=== PATIENT | male | born 1945 | race Caucasian/White ===

== ENCOUNTER → 2017-10-20 14:00 | Outpatient (CLI) | payer MEDICARE, SELFPAY | PROVIDERS: PCP Family Medicine; Visit Provider Student in an Organized Health Care Education/Training Program | DX: Z47.89 Encounter for other orthopedic aftercare (principal); M75.122 Complete rotator cuff tear or rupture of left shoulder, not specified as traumatic; T84.89XD Other specified complication of internal orthopedic prosthetic devices, implants and grafts, subsequent encounter ==

== ENCOUNTER → 2017-10-22 02:18 | Outpatient (CLI) | payer MEDICARE, SELFPAY ==
[2017-10-22 11:55] LABS: Anion Gap 8.6 mmol/L (3-11); BUN 14 mg/dL (7-18); CO2 25.4 mmol/L (21.0-32.0); CREATININE 1.36 mg/dL (0.70-1.30); Calcium 9.1 mg/dL (8.5-10.1); Chloride 103 mmol/L (98-107); Estimated GFR 51.81 (mL/min/1.73m2); Glucose 110 mg/dL (70-100); Potassium 4.4 mmol/L (3.5-5.1); Sodium 137 mmol/L (136-145); Vitamin B12 585 pg/mL (193-986)
== END ==
PROVIDERS: PCP Family Medicine; Visit Provider Family Medicine
DX: I10 Essential (primary) hypertension (principal); R20.2 Paresthesia of skin
CPT/HCPCS: 36415; 80048; 82607

== ENCOUNTER 2017-11-14 11:00 | Outpatient (RCR) | payer MEDICARE, SELFPAY ==
--- NOTE | 2017-10-30 13:43 | R_ITS ---
Date: October 30, 2017 Referring: Tutu Rocha M.D. Diagnosis: rotator cuff tear w/revision on 09/16/17 Subjective: History of Present Illness: Chandrakant returns to the clinic today after undergoing a revision of his left rotator cuff repair. He had two proud anchors that did not securely fasten down the supraspinatus requiring further surgical intervention. Had this revision on September 16, and was released to resume P.T. this week. Had his wedge pillow / sling discontinued at 6 weeks, and was told by the Orthopedist to start pendulums and resisted isometrics. He is here today to resume P.T., with focus on AAROM. He follows up with his surgeon in another month. Given the nature of his surgery, intentions are to be non aggressive with ROM to allow for alternate healing, secondary to a history of loosening of two anchors. Pain Ratin/10 at time of I.E. 3/10 at its worst, in the past week. He is not taking any pain meds. He only uses Advil PRN or Tylenol. Pain location: C5 dermatomal distribution, if and when he has pain. Current Level of Function: Unable to perform any self ADLs with use of his left hand / arm. Unable to lift and/or carry. Limited with carrying objects weighing more than 10#. Difficulty donning and doffing pullover shirts. He admits that his sleep has improved since his last surgery. Comorbidities: See patient's EMR. Medications: As per EMR. QOL: Good Standardized Measures: 37% via the DASH. Objective: Posture: Obese male with a protracted scapula and forward head posture. Observation: Portals for incision are well closed without drainage or erythema. No notable swelling. Appears to be some atrophy through the supraspinatus fossa. Palpation: Mild tenderness over the posterior and anterior cuff on the left. ROM: Active left glenohumeral joint into flexion 45 and AA 95 and P 135 . He achieves 135 with pulleys and with fingerladder. External rotation 45 AA in scapular plane and internal rotation to S1. Abduction 25 A and 75 AA. Strength: 3+/5 flexion and abduction, 4/5 internal rotation and 3/5 external rotation. This compares to 4+/5 throughout on the right. Neuro: Sensation intact to light touch throughout bilateral UEs. Treatment: Re-eval followed by manual therapy (11775 x2) for shoulder mobilizations, lateral distraction, caudal glides at Grades 2 and 3 followed by AAROM into flexion, scapular plane abduction and external rotation. Went on to perform a therapeutic procedure (98063 x2) for instruction for resumption of HEP for pulleys flexion and scapular plane, fingerladder climb, pendulums, resisted isometrics and t-wand ROM for flexion and external rotation. Ended with cryotherapy x10 minutes to the shoulder at no charge. Treatment Time: Seen from 11:00 A.M. til 12:00 P.M. Add 59 modifier. Assessment: The patient is a 72 year old male referred for an evaluation and treatment planning following a left rotator cuff repair revision. He presents with clinical signs and symptoms consistent with this diagnosis as demonstrated by impaired joint mobility, motor function and muscle performance as well as ROM associated with soft tissue surgery. Impairments contribute to functional limitations as indicated above. He does require skilled intervention in order to return to full functional mobility, and he has a good prognosis. G-Codes: GCodes had been established following previous evaluation and remain appropriate. Patient's primary functional limitations is with carrying, moving and handling objects with a present status of GPG 8984 CJ and a projected goal of GPG 8985 CI based on the DASH. The patient's complexity is low based on: History: per EMR Examination: as indicated above Presentations: stable and uncomplicated Decision making: low complexity STG: Patient to demonstrate the following in 6 wks 1) improve active flexion to greater than 110 , active abduction to 90 , active internal rotation to L3 and AA external rotation to greater than or equal to 70 2) patient demonstrate independence with his HEP 3) increase strength by 1/2 grade or more through the left shoulder girdle. LTG: Patient to demonstrate the following in 12 wks 1) return to full, painfree functional mobility 2) decrease DASH to less than 20% Plan: Continue with P.T. as indicated above. Please sign, date and return to our clinic with your approval............................. Tutu Rocha M.D. MM/trey
--- NOTE | 2017-11-04 14:56 | PTTR_ITS ---
DATE: 11/04/17 SUBJECTIVE: Ray indicates that he feels he is doing fair with his HEP. ROM is slowly improving AA with the pulleys and finger ladder. OBJECTIVE: KX applied to all codes (yes) Manual therapy: (92481n7). Mobs of the left glenohumeral jt while in supine to include AAROM into flexion, scaption and ext rotation with arm by side. No complaints of discomfort reported with stretching today. The patient was able to achieve approximately 130 of flexion, 135 of scaption and approx. 35 to 40 of ext rotation with arm by side. Therapeutic procedures (68205f8). * x See flow sheet: did review patient's HEP to ensure proper positioning and good understanding of each exercise He performed 2 minutes of flexion and scaption stretching on [place] as well as 5 repetitions of finger ladder, isometric flexion, extension, abduction, int/ext rotation was also performed as well as stretching with a cane overhead while in supine and with ext rotation. Ended with cryotherapy x10 min. at no charge to the left shoulder while seated. Direct treatment time: 45 min. Total treatment time: 55 min. SG/gc
--- NOTE | 2017-11-07 10:00 | PTTR_ITS ---
DATE: 11/07/17 SUBJECTIVE: Indicated he notices mild aching in shoulder on rainy days since having last surgery. Had an achy night Friday because of this. [place] fine after last session and HEP is going well. OBJECTIVE: Manual therapy: (77098m9). Mobilization of left khushbu-hum jt consisting of AAROM throughout flexion, scaption and ER. Achieving 140 degrees flexion and scaption and 45 degrees ER with arm at side. Performed grade 1-2 caudal glides. Therapeutic procedures (68364d0) * x See flow sheet: Focus on AAROM, scap stabilization and light isometric strengthening. * x Provided skilled instruction in proper exercise performance * x Provided skilled manual cues to facilitate proper muscle recruitment and/ or movement pattern Ended session with cryotherapy x 10 minutes to left shoulder at no charge. Direct treatment time: 30 minutes Total treatment time: 40 minutes
--- NOTE | 2017-11-11 16:16 | PTTR_ITS ---
DATE: 11/11/17 SUBJECTIVE: Chandrakant continues to note improvements with his shoulder. Really feels as though this surgery was a success (at this time). OBJECTIVE: KX applied to all codes (yes) Manual therapy: (86655g8). AAROM of the left glenohumeral joint into external rotation achieving 75 with arm abducted at 90 , flexion 160 to 165 and abduction to 120 . Then performed AROM into flexion with punches in supine as well as progressing his ther-ex routine: Therapeutic procedures (17084p1). * x See flow sheet: side lying eccentric external rotation, serratus punch ups, serratus punch up circumduction and bent over rows. * He declined the need for ice post treatment. Will ice at home. Direct treatment time: 3:00 til 3:45 P.M. Plan: Continue as indicated above. MM/gc
--- NOTE | 2017-11-14 12:07 | PTTR_ITS ---
DATE: 11/14/17 SUBJECTIVE: Chandrakant states that he has been achy the past few days, but feels it is due to the cooler damper weather. OBJECTIVE: KX applied to all codes Manual therapy: (21491t6). mobilizations of left GH jt including posterior and inferior glides, distractions and ROM. STM t/o entire shld are Therapeutic procedures (68528c0). * x See flow sheet: light RTC strength and scap stabilizations * x Provided skilled instruction in proper exercise performance: proper scapular positioning Declined the need for cryo post session. Direct treatment time: 45 min Total treatment time: 45 min
== END 2017-11-14 23:59 | disposition home or self-care (01) ==
LOC: PT 11:00
PROVIDERS: PCP Family Medicine; Referring Provider Student in an Organized Health Care Education/Training Program; Visit Provider Student in an Organized Health Care Education/Training Program
DX: Z47.89 Encounter for other orthopedic aftercare (principal); M75.122 Complete rotator cuff tear or rupture of left shoulder, not specified as traumatic; M83.9 Adult osteomalacia, unspecified; T84.89XD Other specified complication of internal orthopedic prosthetic devices, implants and grafts, subsequent encounter
CPT/HCPCS: 97110; 97140

== ENCOUNTER 2017-12-01 12:49 | Outpatient (CLI) | payer MEDICARE, SELFPAY ==
--- NOTE | 2017-12-01 14:46 | DI.RAD_ITS ---
SYMPTOM/DIAGNOSIS: RT KNEE OA, PAIN RIGHT KNEE: Three views. Periarticular spurring is seen involving all three joint compartments. There is moderate narrowing of the medial femoral tibial joint space and mild narrowing of the patellofemoral joint. The bones are intact and normally mineralized. The soft tissues are unremarkable. IMPRESSION: Moderate osteoarthritis of the right knee.
== END 2017-12-01 13:09 ==
PROVIDERS: PCP Family Medicine; Visit Provider Student in an Organized Health Care Education/Training Program
DX: M25.561 Pain in right knee (principal); M17.11 Unilateral primary osteoarthritis, right knee
CPT/HCPCS: 20610; 73562; 99212; J1040

== ENCOUNTER → 2018-01-12 07:51 | Outpatient (BNVA) | payer MEDICARE, SELFPAY | PROVIDERS: PCP Family Medicine; Referring Provider Family Medicine; Visit Provider Student in an Organized Health Care Education/Training Program | DX: M75.122 Complete rotator cuff tear or rupture of left shoulder, not specified as traumatic (principal); Z47.89 Encounter for other orthopedic aftercare | CPT/HCPCS: 99211; 99213 ==

== ENCOUNTER 2018-03-30 09:41 | Outpatient (CLI) | payer MEDICARE, SELFPAY ==
[2018-03-30 13:05] LABS: Abs Immature Grans 0.01 k/cumm (0.0-0.09); Absolute Basophil Count 0.02 k/cumm (0.0-0.2); Absolute Eosinophil Count 0.24 k/cumm (0.0-0.7); Absolute Lymphocyte Count 1.35 k/cumm (1.2-3.4); Absolute Monocyte Count 0.94 k/cumm (0.11-0.7); Absolute Neutrophil Count 3.99 k/cumm (1.2-6.7); Basophils % 0.3; Eosinophils % 3.7; HGB 15.7 g/dL (13.5-17.5); Immature Grans % 0.2; Lymphocytes % 20.6; Mean Corp. HGB Concentration 34.1 g/dL (32.0-36.0); Mean Corpuscular Hemoglobin 31.8 pg (27.0-33.0); Mean Corpuscular Volume 93.3 fL (80-95); Mean Platelet Volume 10.3 fL (8.0-11.0); Monocytes % 14.4; Neutrophils % 60.8; Platelet Count 169 x1000/uL (130-400); RBC 4.93 m/cumm (4.50-6.00); RBC Distribution Width 12.6 % (11.8-14.1); White Blood Cell Count 6.55 k/cumm (4.4-10.8)
[2018-03-30 13:21] LABS: ALT 58 U/L (12-78); AST 44 U/L (15-37); Alkaline Phosphatase 69 U/L (46-116); Anion Gap 7.5 mmol/L (3-11); BUN 18 mg/dL (7-18); Bilirubin, Total 0.5 mg/dL (0.2-1.0); CO2 29.5 mmol/L (21.0-32.0); CREATININE 1.39 mg/dL (0.70-1.30); Calcium 9.7 mg/dL (8.5-10.1); Chloride 104 mmol/L (98-107); Estimated GFR 50.52 (mL/min/1.73m2); Glucose 104 mg/dL (70-100); Potassium 5.1 mmol/L (3.5-5.1); Sodium 141 mmol/L (136-145); Total Protein 7.2 g/dL (6.4-8.2)
[2018-03-30 15:00] LABS: ESR 12 MM/HR (1-20)
== END 2018-03-30 10:01 ==
PROVIDERS: PCP Family Medicine; Visit Provider Family Medicine
DX: R55 Syncope and collapse (principal)
CPT/HCPCS: 36415; 80053; 85652; 85025

== ENCOUNTER 2018-04-01 01:15 | Outpatient (CLI) | payer MEDICARE, SELFPAY ==
--- NOTE | 2018-04-01 10:15 | MERGE_ITS ---
*[facility]* *[facility]* [address] [place] [address] Date of study: 04/01/2018 Transthoracic Echocardiography M-mode, complete 2D, complete spectral Doppler, and color Doppler *STUDY CONCLUSIONS* Summary: 1. Left ventricle: The cavity size was normal. Wall thickness was normal. Systolic function was normal. The estimated ejection fraction was 60-65%. Wall motion was normal; there were no regional wall motion abnormalities. Some parameters suggest diastolic dysfunction. 2. Mitral valve: There was mild regurgitation. 3. Right ventricle: The cavity size was mildly dilated. Wall thickness was normal. Systolic function was normal. 4. Right atrium: The atrium was dilated. 5. Pulmonary arteries: Systolic pressure could not be accurately determined, but appeared to be increased, at least 30 to 35 mmHg. *PATIENT PRESENTATION* Height: 172.7cm ((68in) ) S/D Pressure: 128 / 85 Weight: 102.5kg ((225.5lb) ) BSA: 2.26m^2 Test start time: 10:20 AM. Test stop time: 11:20 AM. CONSULTING Jefferson Talbot [facility] NONPROFIT MANAGER RT Valerie ZavalaR)(CT), ZEESHAN ORDERING Jamie Irvin REFERRING Jamie Irvin *PROCEDURE DATA* Procedure information: The patient was identified by two identifiers. This study was interpreted by [facility]. Pertinent images and digital data are archived for permanent storage and are available for subsequent review. No prior study was available for comparison. Study status: Routine. Transthoracic echocardiography. M-mode, complete 2D, complete spectral Doppler, and color Doppler. A Transthoracic Echocardiogram was performed. Scanning was performed from the parasternal, apical, subcostal, and suprasternal notch acoustic windows. Images were obtained using an [id number] cardiac ultrasound machine. Image quality was adequate. Study completion: The patient tolerated the procedure well. There were no complications. History: PMH: Cough, near syncope. *CARDIAC ANATOMY* Left ventricle: The cavity size was normal. Wall thickness was normal. Systolic function was normal. The estimated ejection fraction was 60-65%. Wall motion was normal; there were no regional wall motion abnormalities. Some parameters suggest diastolic dysfunction. Aortic valve: Trileaflet; normal thickness leaflets. Mobility was not restricted. Doppler: Transvalvular velocity was within the normal range. There was no stenosis. There was no significant regurgitation. VTI ratio of LVOT to aortic valve: 0.85. Valve area (VTI): 2.4cm^2. Indexed valve area (VTI): 1.1cm^2/m^2. Peak velocity ratio of LVOT to aortic valve: 0.81. Valve area (Vmax): 2.3cm^2. Indexed valve area (Vmax): 1cm^2/m^2. Mean velocity ratio of LVOT to aortic valve: 0.77. Valve area (Vmean): 2.2cm^2. Indexed valve area (Vmean): 1cm^2/m^2. Mean gradient (S): 3.2mm Hg. Peak gradient (S): 5.4mm Hg. Aorta: Aortic root: The aortic root was normal in size. Ascending aorta: The ascending aorta was normal in size. Mitral valve: Structurally normal valve. Mobility was not restricted. Doppler: Transvalvular velocity was within the normal range. There was no evidence for stenosis. There was mild regurgitation. Valve area by pressure half-time: 2.1cm^2. Indexed valve area by pressure half-time: 0.9cm^2/m^2. Left atrium: The atrium was normal in size. Right ventricle: The cavity size was mildly dilated. Wall thickness was normal. Systolic function was normal. Pulmonic valve: Poorly visualized. Structurally normal valve. Doppler: Transvalvular velocity was within the normal range. There was no evidence for stenosis. There was mild regurgitation. Peak gradient (S): 3.6mm Hg. Tricuspid valve: Structurally normal valve. Doppler: Transvalvular velocity was within the normal range. There was no evidence for stenosis. There was trivial regurgitation. Peak gradient (D): 26.2mm Hg. Pulmonary artery: Systolic pressure could not be accurately determined, but appeared to be increased, at least 30 to 35 mmHg. Right atrium: The atrium was dilated. Pericardium: There was no pericardial effusion. Systemic veins: Inferior vena cava: Well visualized. The vessel was patent and normal in size. The respirophasic diameter changes were in the normal range (greater than or equal to 50%). Baseline ECG: Normal sinus rhythm. Measurements Left ventricle Value Reference LV ID, ED, PLAX 5.0 cm 3.5 - 6.0 LV ID, ES, PLAX 3.0 cm 2.1 - 4.0 LV PW thickness, ED, PLAX 1.0 cm LV end-diastolic volume, 1-p A2C 94 ml LV ejection fraction, 1-p A2C 67 % LV end-diastolic volume, 1-p A4C 94 ml LV ejection fraction, 1-p A4C 62 % LV e', lateral 0.071 m/sec LV E/e', lateral 6 LV e', medial 0.061 m/sec LV E/e', medial 8 LV e', average 0.066 m/sec LV E/e', average 7 Ventricular septum Value Reference IVS thickness, ED, PLAX 1.0 cm LVOT Value Reference LVOT ID, A-P 1.9 cm LVOT area 2.8 cm^2 LVOT peak velocity, S 0.94 m/sec LVOT mean velocity, S 0.66 m/sec LVOT VTI, S 19.6 cm LVOT peak gradient, S 3.5 mm Hg LVOT mean gradient, S 1.9 mm Hg Stroke volume (SV), LVOT DP 55 ml Stroke index (SV/bsa), LVOT DP 24 ml/m^2 Aortic valve Value Reference Aortic valve peak velocity, S 1.2 m/sec Aortic valve mean velocity, S 0.86 m/sec Aortic valve VTI, S 23.0 cm Aortic mean gradient, S 3.2 mm Hg Aortic peak gradient, S 5.4 mm Hg VTI ratio, LVOT/AV 0.85 Aortic valve area, VTI 2.4 cm^2 Velocity ratio, peak, LVOT/AV 0.81 Aortic valve area, peak velocity 2.3 cm^2 Velocity ratio, mean, LVOT/AV 0.77 Aortic valve area, mean velocity 2.2 cm^2 Aortic valve area/bsa, mean velocity 1 cm^2/m^2 Aorta Value Reference Aortic root ID, ED 3.2 cm Ascending aorta ID, A-P, S 3.3 cm RVOT Value Reference RVOT VTI, S 17.0 cm Left atrium Value Reference LA ID, A-P, ES 3.6 cm LA ID/bsa, A-P 1.6 cm/m^2 <=2.2 LA area, ES, A4C 18.3 cm^2 8.8 - 23.4 LA area, ES, A2C 16 cm^2 LA volume/bsa, ES, 1-p A4C 24 ml/m^2 LA volume, ES, 2-p 46 ml LA volume/bsa, ES, 2-p 20 ml/m^2 LA/aortic root ratio 1.13 Mitral valve Value Reference Mitral E-wave peak velocity 0.46 m/sec Mitral A-wave peak velocity 0.83 m/sec Mitral deceleration time (H) 359 ms 150 - 230 Mitral pressure half-time 104 ms Mitral E/A ratio, peak 0.55 Mitral valve area, PHT, DP 2.1 cm^2 Pulmonary veins Value Reference Pulmonary vein peak velocity, S 0.49 m/sec Pulmonary vein peak velocity, D 0.31 m/sec Pulmonary vein velocity ratio, peak, 1.6 S/D Pulmonary vein A-wave reversal peak 0.38 m/sec velocity Tricuspid valve Value Reference Tricuspid E-wave peak velocity 2.56 m/sec Tricuspid peak gradient, D 26.2 mm Hg Tricuspid regurg peak velocity 3.1 m/sec Tricuspid peak RV-RA gradient 39.6 mm Hg Right atrium Value Reference RA area, ES, A4C 19.3 cm^2 8.3 - 19.5 Pulmonic valve Value Reference Pulmonic peak gradient, S 3.6 mm Hg Legend: (L) and (H) ana paula values outside specified reference range. I have personally reviewed the images and have reviewed and edited the reported findings. Electronically signed by Tadeo Ghosh 04/01/2018 12:17
--- NOTE | 2018-04-01 11:41 | DI.US_ITS ---
SYMPTOMS/DIAGNOSIS: NEAR SYNCOPE WITH COUGH, R55, R05 CAROTID ULTRASOUND: There is minimal calcific plaque in both common carotid bulbs. The velocity measurements obtained are within the normal range. No significant stenosis is visible. The vertebral arteries show antegrade flow. IMPRESSION: Minimal calcific plaque. No evidence of significant internal carotid artery stenosis.
== END 2018-04-01 01:35 ==
PROVIDERS: PCP Family Medicine; Visit Provider Family Medicine
DX: I34.0 Nonrheumatic mitral (valve) insufficiency (principal); R55 Syncope and collapse; R05 Cough; I10 Essential (primary) hypertension
CPT/HCPCS: 93306; 93880

== ENCOUNTER → 2018-05-01 08:14 | Outpatient (BNVA) | payer MEDICARE, SELFPAY | PROVIDERS: PCP Family Medicine; Referring Provider Family Medicine; Visit Provider Surgery | DX: R10.13 Epigastric pain (principal); Z12.11 Encounter for screening for malignant neoplasm of colon; I10 Essential (primary) hypertension | CPT/HCPCS: 99213 ==

== ENCOUNTER 2018-05-25 07:58 | Day surgery (SDC) | payer MEDICARE, SELFPAY ==
--- NOTE | 2018-05-25 06:56 | W.PM.ENDDOP ---
Date of service: 05/25/18 Time of Service: : Endoscopy Report DATE OF PROCEDURE: 05/25/18 PRE-OP DIAGNOSIS: Colon Cancer Screening, Dyspepsia POST-OP DIAGNOSIS: other (Gastritis, reflux esophagitis, diverticulosis, polyps) PROCEDURE: 1. EGD with bx 2. Colonoscopy with polypectomy by forceps and hot snare SURGEON: Jazlyn Cortez ANESTHESIA: other (General/ ASA 2/ Ambar Skinner) ESTIMATED BLOOD LOSS: 5 PATHOLOGY: other (Antrum Bx, GE junction Bx, Ascending Polyp, descending polyp bx x3) COMPLICATIONS: None DISPOSITION: same day INDICATIONS: Mr. Gaona is a 72 year old amle with a history of diverticulitis, s/p resection who is here for a screening colonoscopy. He also has been having dyspepsia on Omeprazole 20 mg daily. Risks, benefits and complications have been reviewed. Complications include but are not limited to bleeding, pain, perforation, missed small lesion/polyp, sore throat, aspiration and adverse reaction to the medications. Questions were entertained and answered to their satisfaction and they wished to proceed. No guarantees were given or implied. PREP: Miralax/Dulcolax PROCEDURE START TIME: : PROCEDURE END TIME: 11:20 COLONOSCOPY RETRACTION TIME: 17 minutes FINDINGS: Moderate Gastritis Moderate esophageal inflammation Ascending polyp, descending polyp just past anastamosis and descending polyps PROCEDURE DESCRIPTION: After informed consent was obtained the patient was take to the procedure room and placed in a supine position. Monitors were applied and a time out was done. The patients name, date of , procedure type, allergies to medications and metal in their body was reviewed. A bite block was placed and the patient was sedated. Once sedated and comfortable the gastroscope was advanced through the oropharynx which was grossly normal into the esophagus. The proximal and mid-esophagus were normal. In the distal esophagus there was inflammation noted. The scope was advanced into the stomach and through the pylorus into the 3rd portion of the duodenum. The duodenum was noted to be normal. The scope was retracted back into the stomach and biopsies were done to rule out H. pylori. There were no ulcers. The scope was retroflexed. The cardia and fundus were noted to be normal. There was no hiatal hernia noted. The scope was retracted back into the esophagus and biopsies were done of the GE junction to rule out Naik's. The Z line was irregular. The GE junction was at 32 cm. While the patient was still sedated they were placed in a left decubitous position. A rectal exam was done. External exam was normal. Internal exam revealed a slightly relaxed sphincter tone and no palpable masses. The prostate was smooth. The scope was then introduced and retro-flexed. No internal hemorrhoids were identified. The scope was then advanced to the cecum without difficulty. The TI and appendiceal orifice were identified. The prep was adequate. The scope was then slowly retracted over 17 minutes back into the rectum. One polyp was removed with a hot snare in the ascending colon, 2 polyps were removed in the descending colon with forceps. One of the polyps was just distal to the anastamosis. There was diverticulosis noted throughout the colon including the cecum. The scope was removed and the patient was woken up and taken back to Same day surgery in stable condition. The patient tolerated the procedure well and there were no immediate complications. Follow up: Depends on final pathology.
--- NOTE | 2018-05-25 06:58 | W.PM.DSUDISC ---
Discharge Plan Disposition Patient Disposition: HOME Condition: Good Discharge Details Reason For Visit: Colon Cancer Screening/ Dyspepsia Attending Provider: Jazlyn Cortez Primary Care Provider: Jefferson Talbot Home Meds and New Rx's Prescriptions: New ranitidine HCl [Zantac] 150 mg tablet 150 mg PO QHS Qty: 30 RF: 0 Continued gabapentin 300 mg capsule 300 mg PO HS PRNRF: 0 ondansetron 4 mg tablet,disintegrating 4 mg PO QID PRN (Reason: nausea and vomiting) Qty: 7 RF: 0 multivitamin [Daily Multi-Vitamin] 1 EACH tablet 1 ea PO DAILY RF: 0 Fish Oil 500 MG capsule 500 mg PO DAILY RF: 0 omeprazole 20 MG tablet,delayed release (DR/EC) 20 mg PO DAILY RF: 0 lisinopril 10 MG tablet 10 mg PO DAILY Qty: 90 RF: 4 PROVENTIL HFA 18 GM HFA.AER.AD 2 puff Inhalation Q6H PRN Qty: 1 RF: 5 triamcinolone acetonide [Nasacort] 10.8 ML aerosol,spray 10.8 ml NS PRN PRNQty: 1 RF: 1 aspirin [Aspirin Low-Strength] 81 MG tablet,chewable 81 mg PO DAILY RF: 0 ibuprofen 800 MG tablet 800 mg PO Q8H PRN PRNQty: 60 RF: 2 acetaminophen [Non-Aspirin Extra Strength] 500 MG tablet 1,000 mg PO Q8H PRN PRNQty: 60 RF: 3 amitriptyline 10 mg tablet 10 mg PO HS PRNRF: 0 Discontinued polyethylene glycol 3350 17 gram powder in packet 255 g PO DAILY Qty: 15 RF: 0 bisacodyl [Dulcolax (bisacodyl)] 5 mg tablet,delayed release (DR/EC) 5 mg PO ONCE Qty: 4 RF: 0 Discharge Instructions Instructions: Colonoscopy (DC), Upper Endoscopy (DC), Colorectal Polyps (DC), Diverticulosis (DC), Gastroesophageal Reflux Disease (DC), Gastritis (GEN), Diet for Stomach Ulcers and Gastritis (GEN) Additional Instructions: Findings: Gastritis and reflux esophagitis Diverticulosis Polyps in the large bowel Follow up: 3-5 year for next colonoscopy Please call if you develop: fevers >101.5 Nausea or Vomiting Abdominal pain that is not transient DAY SURGERY UNIT POST COLONOSCOPY INSTRUCTIONS 1. Because there will be medication in your system for the next 24 hours, you may feel a little sleepy. Your coordination will be affected. Therefore: a. Do not drive or operate dangerous equipment for 24 hours. b. Do not drink alcohol beverages for 24 hours (not even beer). c. Plan to go home and rest for the day. 2. Generally there are no restrictions on your activity after a day or so has gone by, but you may feel a bit fatigued for a few days. 3 After you arrive home you may have a light meal and return to a normal diet as you can tolerate it without feeling sick to your stomach. 4. After surgery, you may feel pain or discomfort. This should be only transient, but if it persists please contact your doctor. 5. If there are any questions regarding the findings of your procedure, please feel free to contact your doctor. 6. If you are unable to contact your doctor with a problem, contact the hospital at [phone]. 7. Continue all your regular medications unless directed otherwise. I understand the above instructions and have no questions. Signature of Patient or Responsible Adult Escort Date/Time Name of Responsible Adult Escort Signature of Nurse Date/Time Stand Alone Forms: Cristopher Craft (EUNICEU) Activity:: Activity as Tolerated Diet:: High fiber diet Discharge Orders Discharge Orders: Discharge Order (Routine); Ordered 05/25/18 Ordered By: Jazlyn Cortez DS: Diagnosis Discharge Diagnosis (1) S/P colonoscopy: Status: Acute (2) H/O esophagogastroduodenoscopy: Status: Chronic (3) Colorectal polyp detected on colonoscopy: Status: Acute
[2018-05-25 08:13] VITALS: BP 136/90; PULSE 79; RESP 16; TEMP 35.4; O2SAT 94
[2018-05-25] MEDS: Lactated Ringers 1,000 ML 80 ML IV (08:37)
[2018-05-25] MEDS: Lidocaine 2% Viscous 15 ML CUP (10:40)
--- NOTE | 2018-05-25 10:47 | STOM_PTH ---
PATIENT: Javi Gaona LOC: [facility] U#:[id number] AGE/SX: 72/M ROOM: RE05/25/[address]: Jazlyn Cortez MD : [id number] BED: DIS: 05/25/2018 SPEC #: [id number] RECD: 05/25/18 12:51 STATUS: MICHELLE REQ #: [id number] MANNY: 05/25/18 10:[address]: Jazlyn Cortez DEPT: Surgical Specimen RECD BY: Afua Sandoval ENTERED: 05/25/18 12:53 SP TYPE: STOMACH OTHR DR: Jefferson Talbot MD Tissues: 1 - STOMACH BIOPSY 2 - ESOPHAGUS BIOPSY 3 - BIOPSY BOWEL 4 - BIOPSY BOWEL 5 - BIOPSY BOWEL Procedures: GROSS AND MICRO LEVEL 4 Comments: [id number]
[2018-05-25 12:00] VITALS: BP 130/82; PULSE 62; RESP 16; TEMP 35.6; O2SAT 94
== END 2018-05-25 12:10 | disposition home or self-care (01) ==
LOC: SUR 07:58
PROVIDERS: PCP Family Medicine; Visit Provider Surgery
PROC: (CPT 45385; principal; 2018-05-25 09:00)
DX: Z12.11 Encounter for screening for malignant neoplasm of colon (principal); D12.4 Benign neoplasm of descending colon; D12.2 Benign neoplasm of ascending colon; Z90.49 Acquired absence of other specified parts of digestive tract; Z87.19 Personal history of other diseases of the digestive system; R10.13 Epigastric pain; K21.0 Gastro-esophageal reflux disease with esophagitis; K29.50 Unspecified chronic gastritis without bleeding; I10 Essential (primary) hypertension
CPT/HCPCS: 45385; 45380; 43239; 88305

== ENCOUNTER → 2018-08-03 09:30 | Outpatient (BNVA) | payer MEDICARE, SELFPAY | PROVIDERS: PCP Family Medicine; Referring Provider Family Medicine; Visit Provider Student in an Organized Health Care Education/Training Program | DX: M17.11 Unilateral primary osteoarthritis, right knee (principal); Z98.890 Other specified postprocedural states; I10 Essential (primary) hypertension | CPT/HCPCS: 20610; 99213; 99214; J1040 ==

== ENCOUNTER 2018-08-28 01:44 | Outpatient (CLI) | payer MEDICARE, SELFPAY ==
--- NOTE | 2018-08-28 13:20 | DI.CT_ITS ---
SYMPTOMS/DIAGNOSIS: VERTIGO, HEADACHE, DIZZINESS AND GIDDINESS, R42 CT BRAIN: Noncontrast. No priors. The ventricles and sulci are consistent with the patient's age. 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 Mild small vessel ischemic disease is seen. No acute intracranial hemorrhage, infarct, midline shift or mass effect is identified. The visualized paranasal sinuses are clear. The mastoid air cells are well pneumatized. The calvarium is intact. IMPRESSION: No acute intracranial process.
== END 2018-08-28 02:04 ==
PROVIDERS: PCP Family Medicine; Visit Provider Emergency Medicine
DX: R42 Dizziness and giddiness (principal); R51 Headache; I67.82 Cerebral ischemia
CPT/HCPCS: 70450

== ENCOUNTER 2018-11-13 02:43 | Outpatient (CLI) | payer MEDICARE, SELFPAY ==
[2018-11-13 11:00] LABS: Anion Gap 10.5 mmol/L (3-11); BUN 16 mg/dL (7-18); CO2 26.5 mmol/L (21.0-32.0); CREATININE 1.37 mg/dL (0.70-1.30); Calcium 9.1 mg/dL (8.5-10.1); Chloride 104 mmol/L (98-107); Estimated GFR 51.22 (mL/min/1.73m2); Glucose 114 mg/dL (70-100); Potassium 4.5 mmol/L (3.5-5.1); Sodium 141 mmol/L (136-145)
== END 2018-11-13 03:03 ==
PROVIDERS: PCP Family Medicine; Visit Provider Family Medicine
DX: I10 Essential (primary) hypertension (principal)
CPT/HCPCS: 36415; 80048

== ENCOUNTER 2018-12-17 02:14 | Outpatient (CLI) | payer MEDICARE, SELFPAY ==
--- NOTE | 2018-12-17 09:35 | DI.CT_ITS ---
EXAM: CT SINUS WO CLINICAL HISTORY: RT NASAL POLYPS J33.9. TECHNIQUE: COMPARISON: CT HEAD WO from 08/28/2018 FINDINGS: Visualized portions of the brain and orbits are unremarkable. There is minimal mucoperiosteal thicke yumi the maxillary and ethmoid sinuses bilaterally. Nasal cavity unremarkable except for bilateral c oncha bullosa middle turbinates. The infundibulum the ostiomeatal complex appear patent bilaterally. IMPRESSION: Negative sinus CT except for minimal mucoperiosteal thickening as described above
== END 2018-12-17 02:34 ==
PROVIDERS: PCP Family Medicine; Visit Provider Otolaryngology
DX: J33.9 Nasal polyp, unspecified (principal); J34.89 Other specified disorders of nose and nasal sinuses
CPT/HCPCS: 70486

== ENCOUNTER 2018-12-28 11:40 | Outpatient (CLI) | payer MEDICARE, SELFPAY ==
--- NOTE | 2018-12-28 08:15 | DI.RAD_ITS ---
EXAM: XR KNEE LT 3V AP,LAT,ABELINO INDICATION: L knee pain. COMPARISON: XR knee RT 3V AP,lat,abelino from 12/01/2017 TECHNIQUE: 2D digital imaging was performed. FINDINGS: Three views were obtained. There is moderate narrowing of the medial tibiofemoral cartilaginous join t space. Mild medial femoral subluxation on the tibia noted. Mild marginal osteophyte formation not ed at multiple sites. IMPRESSION: DJD predominantly involving medial tibiofemoral joint.
== END 2018-12-28 12:00 ==
PROVIDERS: PCP Family Medicine; Referring Provider Family Medicine; Visit Provider Student in an Organized Health Care Education/Training Program
DX: M25.562 Pain in left knee (principal); M17.12 Unilateral primary osteoarthritis, left knee; M17.11 Unilateral primary osteoarthritis, right knee; I10 Essential (primary) hypertension
CPT/HCPCS: 20610; 73562; 99213; J1040

== ENCOUNTER 2019-04-05 13:29 | Outpatient (CLI) | payer MEDICARE, SELFPAY ==
--- NOTE | 2019-04-05 13:24 | DI.RAD_ITS ---
EXAM: XR STANDING ALIGNMENT CLINICAL HISTORY: OA right knee TECHNIQUE: The exam was performed accotding to the usual protocol. COMPARISON: No exams were available for comparison FINDINGS: AP views of the lower extremities were obtained for leg length/alignment. Note is made of marked jr rowing of medial tibiofemoral cartilaginous joint space on the right and mild narrowing of the medial tibiofemoral cartilaginous joint space on the left. Mild varus angulation of the right knee noted. Mild hypertrophic spurring at the joint margins of joints of the knees. IMPRESSION:
== END 2019-04-05 13:49 ==
PROVIDERS: PCP Family Medicine; Referring Provider Family Medicine; Visit Provider Student in an Organized Health Care Education/Training Program
DX: M17.11 Unilateral primary osteoarthritis, right knee (principal); M21.161 Varus deformity, not elsewhere classified, right knee; I10 Essential (primary) hypertension
CPT/HCPCS: 99213; 77073

== ENCOUNTER 2019-05-13 13:43 | Outpatient (CLI) | payer MEDICARE, SELFPAY ==
[2019-05-13 15:13] LABS: HCT 45.7 % (40.0-50.0); Mean Corpuscular Volume 91.4 fL (80-95); Mean Platelet Volume 9.7 fL (8.0-11.0); Platelet Count 169 x1000/uL (130-400); RBC Distribution Width 12.3 % (11.8-14.1); White Blood Cell Count 7.85 k/cumm (4.4-10.8)
[2019-05-13 15:42] LABS: Anion Gap 8.8 mmol/L (3-11); BUN 13 mg/dL (7-18); CO2 26.2 mmol/L (21.0-32.0); CREATININE 1.36 mg/dL (0.70-1.30); Calcium 8.9 mg/dL (8.5-10.1); Chloride 104 mmol/L (98-107); Estimated GFR 51.66 (mL/min/1.73m2); Glucose 87 mg/dL (74-106); Potassium 4.5 mmol/L (3.5-5.1); Sodium 139 mmol/L (136-145)
--- NOTE | 2019-05-14 12:30 | PDOC.CMPRO ---
- If Service Date Differs Date of service: 05/13/19 Time of Service: 12:30 Care Management Progress Note CM is asked to meet with patient by Johnny of day surgery. Javi reports he is having a total knee replacement on May 19, 2019. Javi lives with his in [facility] in a one story home. He states there are no stairs in the house but he does have three steps from the porch into the house. Javi drives and is independent at baseline. 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 Javi enjoys outdoor activities, such as hunting and fishing. He states he is ready for his knee surgery and has a walker, cane, shower seat, and raised toilet seat at home. His will drive him home upon discharge.
== END 2019-05-13 14:03 ==
PROVIDERS: PCP Family Medicine; Visit Provider Student in an Organized Health Care Education/Training Program
DX: M17.11 Unilateral primary osteoarthritis, right knee (principal); Z01.812 Encounter for preprocedural laboratory examination; Z01.818 Encounter for other preprocedural examination
CPT/HCPCS: 36415; 80048; 85027

== ENCOUNTER 2019-05-19 07:16 | Inpatient (IN) | payer MEDICARE, SELFPAY ==
[2019-05-19] VITALS (13 sets, daily range): BP systolic 85–141; BP diastolic 38–88; PULSE 64–74; RESP 12–21; TEMP 36.4–36.7; O2SAT 94–97
[2019-05-19] MEDS: Gabapentin 300 MG CAP PO ×2 (07:03→22:21)
[2019-05-19] MEDS: Acetaminophen 500 MG TAB 1000 MG PO ×3 (07:03→20:07)
[2019-05-19] MEDS: Celecoxib 200 MG CAP 400 MG PO (07:03)
[2019-05-19] MEDS: Lactated Ringers 1,000 ML 80 ML IV ×3 (07:20→23:10)
[2019-05-19] MEDS: Bupivacaine 0.25% Pres-Free 30 ML VIAL ×2 (07:39→09:20)
[2019-05-19] MEDS: ceFAZolin 2 GM/50 ML BAG IVPB (07:51)
[2019-05-19] MEDS: Ketorolac 30 MG/ML VIAL (09:20)
[2019-05-19] MEDS: Normal Saline 20 ML VIAL (09:20)
--- NOTE | 2019-05-19 13:20 | IN_ITS ---
Date of service: 05/19/19 Time of Service: 13:20 PT Notes Physical Therapy Inpatient Initial Evaluation Date: 05/19/2019 Referring Doctor: Tutu Rocha M.D. PT Orders: PT CONSULT: s/p ortho surgery Precautions: Fall. Standard. Activity as tolerated. Patient Profile/Admitting Diagnosis: Pt is a 73-year-old male with a history of primary osteoarthritis of the right knee presenting status post right total knee arthroplasty on post-operative day 0. PMHX: Medical History (Updated 12/28/18 @ 19:26 by Tutu Rocha MD) Calculus of gallbladder without cholecystitis without obstruction (Resolved 09/22/15) Carpal tunnel syndrome on both sides (Chronic 08/25/15) Diverticulitis of colon (Chronic) COLONOSCOPY-06/17/14; DR. DELUNA Essential hypertension (Chronic 07/13/13) GERD (gastroesophageal reflux disease) (Chronic) Hearing loss (Chronic) Hyperlipidemia (Chronic) Idiopathic peripheral neuropathy (Chronic 10/16/17) Left lumbar radiculitis (Resolved) Left lumbar radiculopathy (Chronic 03/07/16) Obesity (Chronic 07/23/12) Osteoarthritis (Chronic) Perforated diverticulitis (Resolved 05/06/14) Polymyalgia rheumatica (Chronic 10/13/15) Primary osteoarthritis of right knee (Chronic) Injecated: 12/01/2017, 08/03/2018, 12/28/2018 Umbilical hernia (Inactive) Surgical History (Updated 05/13/19 @ 13:20 by Rosibel Carmona) Complete tear of left rotator cuff (Resolved 05/28/17) S/P Repair Had to have 2 surgeries after an anchor was pulled H/O esophagogastroduodenoscopy (Resolved ~05/25/18) History of cholecystectomy (Inactive 10/08/15) History of exploratory laparotomy (Inactive 07/26/14) History of umbilical hernia repair (Inactive) repair of wound dehisence Reports 4 surgeries in 2014 Required skin graft and now has mesh in place S/P colonoscopy (Resolved ~05/25/18) Sigmoidoscopy 07/26/14; DR. DELUNA Status post knee surgery (Inactive) right knee arthroscopy Status post tonsillectomy and adenoidectomy (Acute) Status post trigger finger release (Acute) Social History/Home Situation: Pt lives in [facility] with his . No stairs in the home. Three stairs to enter with railing on the right. Equipment Owned/DME: Electric chair and adjustable bed. Subjective: Pt reports that he looks forward to getting out of bed this afternoon. He denies any headache, chest pain, and dizziness throughout Pt session. Objective: General Observation: Mepilex dressing over incision with GWENDOLYN bandage. Thr omboembolic pumps on bilateral LEs. Mental Status: alert and oriented x4 Pain: 0/10 ROM: Right Upper Extremity: Shoulder Flexion WFL. Shoulder abduction WFL. Elbow flexion WFL. Wrist flexion WFL. Opening and closing of hand WFL. Left Upper Extremity: Shoulder Flexion WFL. Shoulder abduction WFL. Elbow flexion WFL. Wrist flexion WFL. Opening and closing of hand WFL. Right Lower Extremity: Hip flexion WFL. Hip abduction WFL. Knee flexion 115 degrees. Knee extension -10 degrees. Ankle dorsiflexion WFL. Ankle plantarflexion WFL. Left Lower Extremity: Hip flexion WFL. Hip abduction WFL. Knee flexion WFL. Ankle dorsiflexion WFL. Ankle plantarflexion WFL. Strength: Right Upper Extremity: Shoulder flexors 3-/5. Shoulder abductors 3-/5. Elbow flexors 5/5. Elbow extensors 5/5. Underwear Finisher strong. Left Upper Extremity: Shoulder flexors 3-/5. Shoulder abductors 3-/5. Elbow flexors 5/5. Elbow extensors 5/5. Underwear Finisher strong. Right Lower Extremity: Hip flexors 4/5. Hip abductors 5/5. Knee flexors 3-/5. Knee extensors 3-/5. Ankle dorsiflexors 5/5. Ankle plantarflexors 5/5. Left Lower Extremity: Hip flexors 4+/5. Hip abductors 5/5. Knee flexors 5/5. Knee extensors 5/5. Ankle dorsiflexors 5/5. Ankle plantarflexors 5/5. Sensation: Intact as to pain and pressure on bilateral lower extremities. Bed Mobility/Transfers: Rolling SBA with HOB flat Supine to sit SBA with HOB flat Sit to supine SBA with HOB flat Sit to stand SBA Stand to sit SBA Bed to chair SBA Chair to bed SBA Gait: Pt was able to ambulate 260 feet, WBAT on the R LE, using a front-wheeled walker. CGA provided by PT student with wheelchair follow provided by PT. Step through gait pattern with asymmetric step length and height. No complaints of pain, lightheadedness, dizziness. Initially complained of stiffness in the right knee. Balance: Static Sitting: Normal Dynamic Sitting: Normal Static Standing: Fair Dynamic Standing: Fair Special Tests: Mobility Limitations Standardized Measure [facility] 6 clicks Basic Mobility Inpatient Short Form: Raw Score: 21 CMS Score: 29% deficit Informed Consent/Education: Patient instructed in purpose of PT consult and plan of care. Instructed the pt in strengthening interventions to complete every hour while in the hospital setting, including gluteus sets x10, quadriceps sets x10, and ankle pumps x10. Assessment: Pt is a 73-year-old male with a history of primary osteoarthritis of the right knee presenting status post right total knee arthroplasty on post- operative day zero. Pt presents with impairment level findings and functional limitations as listed above. -PAC raw score of 21 with 29% deficit. He demonstrated good tolerance to ambulation as he was able to walk a distance of 260 feet without complaints of increased pain. He was able to perform bed mobility and transfers with only stand by assist from physical therapy. Will assess his performance on stairs at a later treatment session. Pt will continue to benefit from skilled physical therapy at this time. Patient presents with clinical signs and symptoms consistent with current/admitting diagnoses that have resulted to mobility limitations, gait instability, and generalized weakness as demonstrated by the following impairment level findings: 1. Decreased strength to R LE hip and knee major muscle groups 2. Impaired standing balance 3. Impaired activity tolerance 4. Limitation of joint range of motion in right knee Impairments are contributing to the following functional limitations: 1. Dependent bed mobility skills 2. Increased dependence with transfers 3. Inability to safely ambulate without assistive device and physical assistance 4. Increase completion time for mobility ADL performance 5. Increased fall risk 6. Inability to negotiate steps alone safely Patient is assessed as a [id number] moderate complexity based on the following: History: Pt presents with impairment level findings and functional limitations as listed above. -PAC raw score of 21 with 29% deficit. Examination: Demonstrable impairment in strength, balance, and range of motion with underlying impairments and functional limitations as documented above Presentation: Evolving Decision Makin moderate complexity Goals: Goals X1 week 1. Supine-Sit independent 2. Sit-Supine independent 3. Sit-Stand independent 4. Stand-Sit independent 5. Bed-Chair independent 6. Chair-Bed independent 7. Independent gait on level surface with use of least restrictive device for at least 300 feet without report of pain nor dyspnea 8. Independent stair negotiation while holding onto unilateral rail on the right for at least 5 steps without report of pain nor dyspnea 9. Independent with home exercise program 10. Good static and dynamic standing balance/tolerance Plan of Care/Treatment Plan: 1-2x/day, 7 days/week x 1 week. Plan of care has been reviewed with the [employer] providing the service under Physical Therapy direction. Initiate Physical Therapy intervention for strengthening, bed mobility, transfers, gait, stairs, balance training, use of assistive device. DISCHARGE RECOMMENDATIONS: Discharge to home when medically cleared. PT will assess the pt?s ability to negotiate stairs at the following treatment session. Recommend a front-wheeled walker at this time for ambulation. TREATMENT CODE/TIME: 11380 x 25 minutes + 21925 x 10 minutes beginning at 13:20 P.M. Thank you very much for this referral. Emil Bynum, SHAE Doctor of Physical Therapy Student [facility] Supervision provided by Charmaine Brandt PT, DPT, CLT [facility] [place], [place]
[2019-05-19] MEDS: Pregabalin 25 MG CAP PO ×2 (14:40→20:06)
--- NOTE | 2019-05-19 15:04 | NUR.NOTE ---
Nursing Note: Pt admitted to room 210 from PACU. A&Ox3. VSS. Dandre patent. Is regaining sensation in LE's, able to wiggle toes. denies pain. oriented to room. Call mckeon in reach.
[2019-05-19] MEDS: ceFAZolin 1 GM/50 ML BAG IVPB (15:46)
--- NOTE | 2019-05-19 17:42 | W.PM.OP ---
Date of service: 05/19/19 Time of Service: 10:43 Operative Note Operative Note DATE OF PROCEDURE: 05/19/19 PRE-OP DIAGNOSIS: Right Knee Osteoarthritis POST-OP DIAGNOSIS: same PROCEDURE: Right Total Knee Replacement SURGEON: Tutu Rocha COST ACCOUNTING ANALYST: Rosibel Carmona ANESTHESIA: regional and spinal PATHOLOGY: none sent COMPLICATIONS: None Patient was transported to: PACU Patient's condition: stable Implants: 1. Depuy Attune Cementless Cruciate Retaining Femoral Component, Size 5 2. Depuy Attune Cementles Rotating Platform Tibial Component, Size 5 3. Depuy Attune 5x6mm CR/RP Poly 4. Depuy Attune Patellar Component, Size 38mm Indications: I have seen Chandrakant in clinic for symptoms of RIGHT knee arthritis, confirmed with radiographic findings. Chandrakant has exhausted nonoperative methods and was having significant limitations in daily function and desired better function and less pain. I discussed the technical details of a knee replacement. I explained the risks of the procedure to include, but not limited to, bleeding, infection, pain, stiffness, fracture, damage to nerves and vessels, damage to muscles and tendons, loosening, need for repeat procedure, blood clot and cardiopulmonary demise. Despite these risks, Chandrakant elected to proceed. Findings: There was significant signs of arthritis throughout the knee, this mostly in volved tihe medal compartment and the patellofemoral compartmet. Procedure Description: Chandrakant was greeted in the preoperative holding area where the correct side was identified and marked. The consent was reviewed with the patient and signed. The history and physical was updated. All questions were answered. Preoperative mediacations were administered: Acetaminophen 1000mg, Celebrex 400mg, and Gabapentin 300mg. An adductor canal block was then administered by the anesthesia team in the PACU. Chandrakant was taken back to the operating room. A spinal anesthestic was then administered. The patient was placed into the supine position on the operating room table. A nonsterile tourniquet was placed high onto the leg but only used for cementing. Posts were placed for positioning during the procedure. All bony prominences were well padded. Prophylactic antibiotics in the form of Cefazolin were administered. 1g of Tranxemic Acid was given intravenously within 30 minutes of incision. The right leg was then prepped with Chloraprep and draped in a standard fashion with impervious stockinette. A second prep with Chloraprep was performed prior to application of Iodine impregnated skin protection. A timeout to confirm correct identity, side and site, procedure, allergies, anesthesia, and medical concerns was performed. With the knee in some flexion, a midline incision was made overlying the knee. Full thickness skin flaps were raised once the extensor mechanism was encountered. These were raised medially and laterally. Any bleeding was controlled with electrocautery. Once the extensor mechanism was fully exposed, a medial parapatellar arthrotomy was performed in a flexed position. All bleeding from the arthrotomy and the geniculate arteries was coagulated. A medial subperiosteal peel was performed with electrocautery to the midcoronal plane. The fat pad was removed while keeping the patellar tendon protected. The anterior distal femur synovium was removed for later visualization. The ACL and PCL were resected and the anterior horn of the lateral meniscus was transected. The knee was then flexed with the patella everted. Large osteophytes from the tibia were removed. Large osteophytes from the femur were removed. Using a step drill, and based on preoperative templating, the femoral canal was entered. This was done with a step drill without any difficulty. The intramedullary distal femoral cut guide was inserted, set to a 5 degree valgus cut and 9mm cut thickness. The distal femoral cut guide was then held in position and pinned. With the soft tissues protected, the distal cut was performed. This was passed over a few times to ensure a planar cut. I then turned attention to the tibia. The extramedullary guide was placed onto the leg. The distal aspect was slid medial to adjust for position of center of ankle and stay in line with shaft of the tibia. Approximately 3-5 degrees of posterior slope was kept in the proximal cutting guide. The center of the guide was aligned with the PCL. The stylus was used to assess cut thickness. The medial side, most involved side, was set for a 4mm cut. This was then held in position and pinned into place with 2 additional pins and a cross pin for stability. The medial and lateral collateral ligaments were protected and the cut was performed. With this completed, it was assessed and noted to be of appropriate dimensions. The guide was removed. A spacer block was inserted and the knee was brought into extension. The 6mm spacer block provided full extension, without hyperextension and with stability of both the medial and lateral collateral ligaments was assessed. The pins from the femur and the tibia were then removed. The distal femur was then sized. The anterior stylus was placed onto the lateral ridge of the anterior femur. This indicated a size 6 femur. The external rotation of the guide was adjusted to 3 degrees to match the epicondylar axis, perpendicular to [place]?s line. The 4-in-1 cutting guide was the placed. The posterior medial femur cut was evaluated and appeared of good thickness. The spacer block was inserted underneath the cutting guide and stability was confirmed in 90 degrees of flexion. An iam wing was used to confirm appropriate position of the anterior cut to avoid notching. This cutting guide was ensured to be flush on the cut surface and then pinned into place with headed pins. While protecting the soft tissues, quad tendon, and collateral ligaments, the anterior and posterior cuts were performed with a saw. The central two pins were removed and the posterior and anterior chamfers were cut next. The notch-cutting guide was placed. This was pinned to lateralize the femoral component as much as possible while keeping it flush on the cut surface. This was then pinned into position. A reciprocating saw was used to make the notch cut. A rasp smoothed the cut surfaces. A trial cruciate retaining femoral component was then inserted, impacted down to the cut surfaces, and the lug holes were drilled. A provisional trial tibial component was placed and the knee was brought through range of motion. There was noted to be excellent extension and flexion. There was no significant instability. The patella was tracking without thumbs. The tibial cut surface was fully exposed. The medial and lateral menisci were removed. The tibia was then sized as a 5. The tibia had been previously marked during trialing to correspond to the center of the tibial component to help with rotation. The trial was aligned to this ana paula, approximately rotated to the medial 1/3rd of the tibial tubercle. The trial was pinned into place. The tibia was prepared with a reamer and a keel punch. The knee was then brought into extension and the patella was measured as 25mm. Using the patellar clamp and cut guide, this was resected to a flat surface with at least 13mm of thickness remaining. The size 38 patella fit the best. This was oriented and then clamped into position. The lugs were drilled. The trial components were removed. The final components, except for the polyethylene were opened on the back table. The periosteal and capsular tissues, especially posteriorly, around the knee were then systematically injected with a periarticular cocktail consisting of 50cc 0.25% Marcaine, 30mg Ketorolac, 20cc of Exparal and 50cc of injectable saline. The knee was thoroughly irrigated with a pulse lavage and dried. On the back table, with the implants opened, the cement was mixed. 1 batch of cement were prepared with vacuum assistance. Cement was manually impacted into the cut surface of the patella and the patellar button was clamped into position and held. During this process attention was turned to the gutters of the knee and for all interfaces for any excess cement. While the cement was hardening, the knee was irrigated with Irrisept chlorhexadine solution. This was allowed to sit in the knee for 3 minutes. During the cementing process, the cementless components were then impacted using light mallet blows. The final rotating platform poly was inserted. They seated fully onto the bone without difficulty. After the cement had finally cured, approximately 15min, the clamp was removed from the patella and the knee was taken through range of motion. The capsule was then reapproximated with a No. 1 Vicryl at multiple locations. The capsule was finally closed with a No. 2 Stratafix, barbed suture. The tourniquet was then released and the arthrotomy appeared watertight without significant bleeding. The second dosing of 1g TXA was started. Deep tissues were then reapproximated with 0 Vicryl and 2-0 Vicryl. The skin was closed with a running 3-0 Monocryl in a subcuticular fashion. This was reinforced with skin glue. A Mepilex silver dressing was applied along with a [id number] GWENDOLYN wrap. A CryoCuff was applied. UMESH was transferred to the hospital bed without difficulty an suffering no apparent complication. NAME has a good prognosis. Physical therapy will start today and without restrictions, weight-bearing as tolerated. Aspirin 81mg BID will be used for DVT prophylaxis.
[2019-05-19] MEDS: Celecoxib 200 MG CAP PO (20:05)
[2019-05-19] MEDS: Aspirin E.C. 81 MG TABEC PO (20:06)
[2019-05-19] MEDS: Lisinopril 10 MG TAB PO (20:43)
[2019-05-20 00:27] VITALS: BP 97/60; PULSE 71; RESP 18; TEMP 36.7; O2SAT 96
[2019-05-20] MEDS: ceFAZolin 1 GM/50 ML BAG IVPB ×2 (00:39→07:30)
[2019-05-20 03:37] VITALS: BP 114/72; PULSE 69; RESP 16; TEMP 36.2; O2SAT 97
--- NOTE | 2019-05-20 07:09 | DSE_ITS ---
Date of service: 05/20/19 Time of Service: 08:05 DS: Diagnosis Discharge Diagnosis (1) Primary osteoarthritis of right knee: Status: Chronic Discharge Plan Disposition Patient Disposition: HOME Condition: Good Discharge Details Reason For Visit: RIGHT KNEE DJD Admit Date/Time: 05/19/19 07:16 Admit Provider: Tutu Rocha Attending Provider: Tutu Rocha Primary Care Provider: [facility] Hospital Course Hospital Course: Patient was admitted to the medical/surgical floor following the procedure. It was tolerated well without any notable medical, surgical, or anesthetic complications. Mobilization began postoperatively. The encarnacion catheter was removed and voiding spontaneously. Vitals were stable. Physical therapy worked with the patient and was cleared for discharge home. No acute medical issues. Home Meds and New Rx's Prescriptions: New celecoxib 200 mg capsule 200 mg PO BID PRN (Reason: pain) Qty: 60 RF: 1 aspirin 81 mg tablet,delayed release (DR/EC) 81 mg PO BID Qty: 60 RF: 0 acetaminophen 500 mg tablet 1,000 mg PO Q8H PRN (Reason: pain) Qty: 90 RF: 3 oxycodone 5 mg tablet 5 mg PO Q4H Qty: 12 RF: 0 Continued [facility] 10 billion cell -200 mg tablet,chewable 1 tab PO DAILY PRNRF: 0 lisinopril 10 mg tablet 10 mg PO DAILY Qty: 90 RF: 4 multivitamin [Daily Multi-Vitamin] 1 EACH tablet 1 ea PO DAILY RF: 0 Fish Oil 500 MG capsule 500 mg PO DAILY RF: 0 omeprazole 20 MG tablet,delayed release (DR/EC) 20 mg PO DAILY RF: 0 PROVENTIL HFA 18 GM HFA.AER.AD 2 puff Inhalation Q6H PRN Qty: 1 RF: 5 pregabalin [Lyrica] 25 mg capsule 25 mg PO TID Qty: 90 RF: 3 triamcinolone acetonide [Nasacort] 10.8 ML aerosol,spray 10.8 ml NS PRN PRNQty: 1 RF: 1 gabapentin 300 mg Capsule 300 mg PO QHS RF: 0 Discontinued ibuprofen 800 MG tablet 800 mg PO Q8H PRN PRNQty: 60 RF: 2 acetaminophen [Non-Aspirin Extra Strength] 500 MG tablet 1,000 mg PO Q8H PRN PRNQty: 60 RF: 3 Discharge Instructions Additional Instructions: Dr. Rocha?s Total Knee Discharge Instructions Activity: The most important activity is to walk. You should try to take short walks a few times a day. It is important that when resting you work on keeping the knee straight. Avoid putting a pillow behind the knee as this will encourage flexion. Work on range of motion exercises as provided by Physical Therapy. - Start outpatient physical therapy within 2 weeks. - You should wear the WILL hose on both legs for 2 weeks. Dressing: Keep the surgical dressing in place for at least one week. After the first week it may be removed and replace with light gauze and tape or nothing. It may get wet after 3 days but avoid soaking the dressing. If it gets wet, just lightly pat dry. Medications: - You should take Tylenol and anti-inflammatory Celebrex as your primary pain control medications - You have been prescribed a stronger pain medication Oxycodone for breakthrough pain, take as needed as prescribed. - You will continue your stomach acid reduction agent Omeprazole to help reduce stomach acid and reflux. - You will be taking Aspirin 81mg twice a day for DVT prevention unless instructed otherwise. - If you have constipation you should take Colace or Miralax (both [id number]). It takes most people 3-4 days to have a bowel movement. Follow-up: 2 weeks Referrals: Tutu Rocha MD [ [facility]] - [facility] [Provider Group] (s/p R TKA. PT to start around 2 weeks post-op) Activity:: Activity as Tolerated Equipment/Supplies:: Walker Diet:: As Tolerated Discharge Orders Discharge Orders: Discharge Order (Routine); Ordered 05/20/19 Ordered By: Tutu Rocha DS: Summary Status at Discharge Functional status at discharge: uses cane/walker Overall status at discharge: patient is progressing back to baseline Mental Status: mental status grossly normal Speech and Movement: speech and movement normal Mood: congruent mood Affect: normal affect Exam Psych Mental Status: mental status grossly normal Speech and Movement: speech and movement normal Mood: congruent mood Affect: normal affect DS: Data Vitals/I&O Vitals and I&O: Vital Signs Temperature 36.2 C L 05/20/19 03:37 Temperature Source Tympanic 05/20/19 03:37 Pulse 69 05/20/19 03:37 Pulse Rhythm Regular 05/20/19 03:34 Respiratory Rate 16 05/20/19 03:37 Respiratory Effort 05/20/19 03:34 Respiratory Depth Normal 05/20/19 03:34 Respiratory Pattern Normal 05/20/19 03:34 Blood Pressure 114/72 05/20/19 03:37 Pulse Oximetry 97 05/20/19 03:37 Respiratory End-tidal CO2 36 05/19/19 10:27 Oxygen Delivery Method Room Air 05/20/19 03:37 Oxygen Flow Rate 0 05/20/19 03:37 Pain Level 0 05/20/19 03:37 Intake & Output 05/19/19 05/19/19 05/20/19 11:59 23:59 11:59 Intake Total 998 / 2528 1530 / 2528 Output Total 200 / 500 300 / 500 330 / 330 Balance 79 / 8 1230 / 2027 -330 / -330 Weight 102.4 kg Intake: IV 958 / 2007 1050 / 2007 Oral 40 / 520 480 / 520 Output: Urine 50 / 350 300 / 350 330 / 330 Estimated Blood Loss 150 / 150 Other: Urine Color Yellow Dark Patricia Light Patricia Urine Appearance Clear Clear Clear Emesis Description None PFSH Medical History Calculus of gallbladder without cholecystitis without obstruction (Resolved 09/22/15) Carpal tunnel syndrome on both sides (Chronic 08/25/15) Diverticulitis of colon (Chronic) COLONOSCOPY-06/17/14; DR. DELUNA Essential hypertension (Chronic 07/13/13) GERD (gastroesophageal reflux disease) (Chronic) Hearing loss (Chronic) Hyperlipidemia (Chronic) Idiopathic peripheral neuropathy (Chronic 10/16/17) Left lumbar radiculitis (Resolved) Left lumbar radiculopathy (Chronic 03/07/16) Obesity (Chronic 07/23/12) Osteoarthritis (Chronic) Perforated diverticulitis (Resolved 05/06/14) Polymyalgia rheumatica (Chronic 10/13/15) Primary osteoarthritis of right knee (Chronic) Injecated: 12/01/2017, 08/03/2018, 12/28/2018 Umbilical hernia (Inactive) Surgical History Complete tear of left rotator cuff (Resolved 05/28/17) S/P Repair Had to have 2 surgeries after an anchor was pulled H/O esophagogastroduodenoscopy (Resolved ~05/25/18) History of cholecystectomy (Inactive 10/08/15) History of exploratory laparotomy (Inactive 07/26/14) History of umbilical hernia repair (Inactive) repair of wound dehisence Reports 4 surgeries in 2015 Required skin graft and now has mesh in place S/P colonoscopy (Resolved ~05/25/18) Sigmoidoscopy 07/26/14; DR. DELUNA Status post knee surgery (Inactive) right knee arthroscopy Status post tonsillectomy and adenoidectomy (Acute) Status post trigger finger release (Acute) Family History Mother , 82 Diabetes Father , 93 Heart disease Cancer Sister No problems noted. Brother Diabetes Son No problems noted. Daughter No problems noted. Daughter No problems noted. Daughter No problems noted. Social History Smoking/Tobacco Use Status: Never Alcohol Intake: never Drug use: Never Substance use type: does not use Caregiver/Support person: Yes Household members: spouse Housing: house Communication Needs: Hard of Hearing Do you need help understanding health information?: Rarely Pets and animals: Yes Pets and animals: cat(s) Sexually active: No Do you think of yourself as: straight/heterosexual Current gender identity: male What is your relationship status?: How often do you talk on the phone with friends or family?: three or more times per week How often do you get together with friends or relatives?: once per week How often do you attend anabaptist or yarsani services?: decline to answer Do you belong to any clubs or organized social groups?: no Panel score (0-1 are the most socially isolated patients): 2 What type of physical activity do you participate in: walking Duration: 45-60 minutes/day Frequency: daily Marie/Muslim: None Special marie needs: No Seatbelt use: always Helmet use: No Drive intox or ride w/intox 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
[2019-05-20 07:26] VITALS: BP 123/77; PULSE 66; RESP 17; TEMP 36.9; O2SAT 97
[2019-05-20] MEDS: Celecoxib 200 MG CAP PO (07:30)
[2019-05-20] MEDS: Aspirin E.C. 81 MG TABEC PO (07:30)
[2019-05-20] MEDS: Acetaminophen 500 MG TAB 1000 MG PO (07:30)
[2019-05-20] MEDS: Pregabalin 25 MG CAP PO (07:30)
[2019-05-20] MEDS: Multivitamin TAB 1 TAB PO (07:32)
[2019-05-20] MEDS: Omeprazole 20 MG CAPCR PO (07:32)
--- NOTE | 2019-05-20 11:56 | PT.INTREAT ---
Date of service: 05/20/19 Time of Service: 09:00 PT Notes Visit Reasons: RIGHT KNEE DJD 05/20/2019 SUBJECTIVE: Ray stating he is having minimal discomfort. Some achiness with weight bearing but this is well managed. OBJECTIVE: Pt supine in bed. Agreeable to PT treatment. TRANSFERS Supine to sit: S Sit to stand: S Stand to sit: S GAIT Device: FWW Weight bearing: AT R Assist: S Distance: 10'+120'x2 Deviation: Step through STAIRS: 3-4, 2-6 steps, 2 rails, step to pattern, S only THEREX: Pt able to perform active SLR without difficulty. Pt performs light ROM activities and light strengthening. Review HEP. ASSESSMENT: Pt tolerates PT well today without difficulty with stair management or straight plane ambulation with FWW. He has a good understanding of his HEP. PLAN: Pt to be discharged home. See discharge summary for details. Treatment time: 25' [id number], [id number] Jovita Rodriguez, ENOC
--- NOTE | 2019-05-21 16:56 | PT.INDS ---
Date of service: 05/21/19 PT Notes Visit Reasons: RIGHT KNEE DJD Physical Therapy Inpatient Discharge Summary Date: 05/21/2019 Dates of Service: 05/19/2019 through 05/20/2019 This is a clinical summary of care provided on the duration of dates listed above. No charge was made in the completion of this documentation. Patient Profile/Admitting Diagnosis: Pt is 58-year-old woman with history of left hip osteoarthritis presenting status post left total hip arthroplasty on post-operative day zero. Objective: General Observation: Mepilex dressing over incision. Thromboembolic pumps on bilateral LEs. Mental Status: alert and oriented x4 Pain: 0/10 ROM: Right Upper Extremity: Shoulder Flexion WFL. Shoulder abduction WFL. Elbow flexion WFL. Wrist flexion WFL. Opening and closing of hand WFL. Left Upper Extremity: Shoulder Flexion WFL. Shoulder abduction WFL. Elbow flexion WFL. Wrist flexion WFL. Opening and closing of hand WFL. Right Lower Extremity: Hip flexion WFL. Hip abduction WFL. Knee flexion WFL. Ankle dorsiflexion WFL. Ankle plantarflexion WFL. Left Lower Extremity: Hip flexion 115 degrees. Hip abduction WFL. Knee flexion WFL. Ankle dorsiflexion WFL. Ankle plantarflexion WFL. Strength: Right Upper Extremity: Shoulder flexors 5/5. Shoulder abductors 5/5. Elbow flexors 4+/5. Elbow extensors 4+/5. Employee Communications Intern strong. Left Upper Extremity: Shoulder flexors 5/5. Shoulder abductors 5/5. Elbow flexors 4+/5. Elbow extensors 5/5. Employee Communications Intern strong. Right Lower Extremity: Hip flexors 4+/5. Hip abductors 5/5. Knee flexors 4+/5. Knee extensors 5/5. Ankle dorsiflexors 5/5. Ankle plantarflexors 5/5. Left Lower Extremity: Hip flexors 3-/5. Hip abductors 4/5. Knee flexors 4+/5. Knee extensors 5/5. Ankle dorsiflexors 5/5. Ankle plantarflexors 5/5. Sensation: Intact as to pain and pressure on bilateral lower extremities. Bed Mobility/Transfers: Rolling SBA Supine to sit SBA Sit to supine SBA Sit to stand Supervision Stand to sit Supervision Bed to chair Supervision Chair to bed Supervision Gait: Pt was able to ambulate 250 feet, WBAT on the L LE, using a front-wheeled walker. Supervision provided by BUSINESS PROCESS ASSOCIATE. Step through gait pattern. Stairs: Pt was able to ascend and descend the 4-inch steps x3 and 6-inch steps x2 using bilateral upper extremity support. Supervision provided by BUSINESS PROCESS ASSOCIATE. Balance: Static Sitting: Normal Dynamic Sitting: Normal Static Standing: Fair Dynamic Standing: Fair Assessment: Pt is 58-year-old woman with history of left hip osteoarthritis presenting status post left total hip arthroplasty on post-operative day zero. Pt presented with impairment level findings and functional limitations as listed below. She demonstrated the ability to perform bed mobility and transfers with only a stand by assist on initial evaluation. Pt demonstrates improvements in mobility with ambulation as she was able to walk a much greater distance of 250 feet, as compared to 70 feet on initial evaluation. She was able to negotiate stairs without difficulty or complaints of increased pain. Patient continues to present with clinical signs and symptoms consistent with current/admitting diagnoses that have resulted to mobility limitations, gait instability, and generalized weakness as demonstrated by the following impairment level findings: 1. Decreased strength to L hip major muscle groups 2. Impaired standing balance 3. Impaired activity tolerance 4. Limitation of joint range of motion in left hip Impairments continue to contribute to the following functional limitations: 1. Dependent bed mobility skills 2. Increased dependence with transfers 3. Inability to safely ambulate without assistive device and physical assistance 4. Increase completion time for mobility ADL performance 5. Increased fall risk 6. Inability to negotiate steps alone safely Patient was assessed as a 82722 moderate complexity based on the following: History: Pt presented with impairment level findings and functional limitations as listed above. Examination: Demonstrable impairment in strength, balance, and range of motion with underlying impairments and functional limitations as documented above Presentation: Evolving Decision Makin moderate complexity Goals: Goals X1 week 1. Supine-Sit independent -NOT MET 2. Sit-Supine independent -NOT MET 3. Sit-Stand independent -NOT MET 4. Stand-Sit independent -NOT MET 5. Bed-Chair independent -NOT MET 6. Chair-Bed independent -NOT MET 7. Independent gait on level surface with use of least restrictive device for at least 300 feet without report of pain nor dyspnea -NOT MET 8. Independent stair negotiation while holding onto bilateral rails for at least 4 steps without report of pain nor dyspnea -MET 9. Independent with home exercise program -NOT MET 10. Good static and dynamic standing balance/tolerance -NOT MET DISCHARGE RECOMMENDATIONS: Discharge to home when medically cleared. Recommend a front-wheeled walker at this time for ambulation. Thank you very much for this referral. Emil Bynum, SPT Doctor of Physical Therapy Student [facility] Supervision provided by Charmaine Brandt PT, DPT, CLT [facility] [place], [place]
--- NOTE | 2019-05-21 17:04 | INDS_ITS ---
Date of service: 05/21/19 PT Notes Visit Reasons: RIGHT KNEE DJD Physical Therapy Inpatient Discharge Summary Date: 05/21/2019 Dates of Service: 05/19/2019 through 05/20/2019 This is a clinical summary of care provided on the duration of dates listed above. No charge was made in the completion of this documentation. Patient Profile/Admitting Diagnosis: Pt is a 73-year-old male with a history of primary osteoarthritis of the right knee presenting status post right total knee arthroplasty on post-operative day zero. Objective: General Observation: Mepilex dressing over incision with GWENDOLYN bandage. Thromboembolic pumps on bilateral LEs. Mental Status: alert and oriented x4 Pain: 0/10 ROM: Right Upper Extremity: Shoulder Flexion WFL. Shoulder abduction WFL. Elbow flexion WFL. Wrist flexion WFL. Opening and closing of hand WFL. Left Upper Extremity: Shoulder Flexion WFL. Shoulder abduction WFL. Elbow flexion WFL. Wrist flexion WFL. Opening and closing of hand WFL. Right Lower Extremity: Hip flexion WFL. Hip abduction WFL. Knee flexion WFL. Ankle dorsiflexion WFL. Ankle plantarflexion WFL. Left Lower Extremity: Hip flexion WFL. Hip abduction WFL. Knee flexion WFL. Ankle dorsiflexion WFL. Ankle plantarflexion WFL. Strength: Right Upper Extremity: Shoulder flexors 3-/5. Shoulder abductors 3-/5. Elbow flexors 5/5. Elbow extensors 5/5. Tree And Shrub Technician strong. Left Upper Extremity: Shoulder flexors 3-/5. Shoulder abductors 3-/5. Elbow flexors 5/5. Elbow extensors 5/5. Tree And Shrub Technician strong. Right Lower Extremity: Hip flexors 4/5. Hip abductors 5/5. Knee flexors 3-/5. Knee extensors 3-/5. Ankle dorsiflexors 5/5. Ankle plantarflexors 5/5. Left Lower Extremity: Hip flexors 4+/5. Hip abductors 5/5. Knee flexors 5/5. Knee extensors 5/5. Ankle dorsiflexors 5/5. Ankle plantarflexors 5/5. Sensation: Intact as to pain and pressure on bilateral lower extremities. Bed Mobility/Transfers: Rolling SBA with HOB flat Supine to sit Supervision Sit to supine SBA with HOB flat Sit to stand Supervision Stand to sit Supervision Bed to chair SBA Chair to bed SBA Gait: Pt was able to ambulate 10 feet + 120 feet x2, WBAT on the R LE, using a front-wheeled walker. Supervision provided by RADON INSPECTOR. Step through gait pattern. Stairs: Pt was able to ascend and descend the 4-inch steps x3 and 6-inch steps x2 using bilateral upper extremity support. Supervision provided by RADON INSPECTOR. Balance: Static Sitting: Normal Dynamic Sitting: Normal Static Standing: Fair Dynamic Standing: Fair Assessment: Pt is a 73-year-old male with a history of primary osteoarthritis of the right knee presenting status post right total knee arthroplasty on post- operative day zero. Pt presented with impairment level findings and functional limitations as listed above. AM-PAC raw score of 21 with 29% deficit on initial evaluation. He continues to demonstrate good tolerance with ambulation. He was able to perform stair negotiation without increases in knee pain or stiffness. He no longer requires skilled physical therapy at this time. Patient presented with clinical signs and symptoms consistent with current/admitting diagnoses that have resulted to mobility limitations, gait instability, and generalized weakness as demonstrated by the following impairment level findings: 1. Decreased strength to R LE hip and knee major muscle groups 2. Impaired standing balance 3. Impaired activity tolerance 4. Limitation of joint range of motion in right knee Impairments continue to contribute to the following functional limitations: 1. Dependent bed mobility skills 2. Increased dependence with transfers 3. Inability to safely ambulate without assistive device and physical assistance 4. Increase completion time for mobility ADL performance 5. Increased fall risk 6. Inability to negotiate steps alone safely Patient was assessed as a 83273 moderate complexity based on the following: History: Pt presented with impairment level findings and functional limitations as listed above. AM-PAC raw score of 21 with 29% deficit on evaluation Examination: Demonstrable impairment in strength, balance, and range of motion with underlying impairments and functional limitations as documented above Presentation: Evolving Decision Makin moderate complexity Goals: Goals X1 week 1. Supine-Sit independent -NOT MET 2. Sit-Supine independent-NOT MET 3. Sit-Stand independent-NOT MET 4. Stand-Sit independent-NOT MET 5. Bed-Chair independent-NOT MET 6. Chair-Bed independent-NOT MET 7. Independent gait on level surface with use of least restrictive device for at least 300 feet without report of pain nor dyspnea -NOT MET 8. Independent stair negotiation while holding onto unilateral rail on the right for at least 5 steps without report of pain nor dyspnea-MET 9. Independent with home exercise program-NOT MET 10. Good static and dynamic standing balance/tolerance-NOT MET DISCHARGE RECOMMENDATIONS: Discharge to home when medically cleared. Recommend a front-wheeled walker at this time for ambulation. Thank you very much for this referral. Emil Bynum, SPT Doctor of Physical Therapy Student [facility] Supervision provided by Charmaine Brandt PT, DPT, CLT [facility] [place], [place]
== END 2019-05-20 11:45 | disposition home or self-care (01) | DRG 470 ==
LOC: MS 11:14
PROVIDERS: Admitting Provider Student in an Organized Health Care Education/Training Program; PCP Family Medicine; Visit Provider Student in an Organized Health Care Education/Training Program
PROC: 0SRC0J9 Replacement of Right Knee Joint with Synthetic Substitute, Cemented, Open Approach (ICD-10-PCS; CPT 27447; principal; 2019-05-19 07:30)
DX: M17.11 Unilateral primary osteoarthritis, right knee (principal); M25.561 Pain in right knee; Z96.651 Presence of right artificial knee joint; G89.18 Other acute postprocedural pain; I10 Essential (primary) hypertension; K21.9 Gastro-esophageal reflux disease without esophagitis; E78.5 Hyperlipidemia, unspecified
CPT/HCPCS: 27447; 76942; 97110; 97162; 97530; NC; J0690; J1100; J1885; J2001; J2250; J2405

== ENCOUNTER 2019-06-04 10:10 | Outpatient (CLI) | payer MEDICARE, SELFPAY ==
--- NOTE | 2019-06-04 09:45 | DI.RAD_ITS ---
EXAM: XR STANDING ALIGNMENT CLINICAL HISTORY: 1ST POST OP TECHNIQUE: COMPARISON: XR STANDING ALIGNMENT from 04/05/2019 FINDINGS: AP standing alignment views were obtained. There are mild degenerative changes of both hips. There is a total knee joint replacement position on the right. There are degenerative changes involving th e left knee, with mild medial tibiofemoral cartilaginous joint space narrowing and slight marginal os teophyte formation the medial tibiofemoral joint. IMPRESSION:
--- NOTE | 2019-06-04 09:45 | DI.RAD_ITS ---
EXAM: XR KNEE RT 1V CLINICAL HISTORY: 1ST POST OP TECHNIQUE: COMPARISON: XR KNEE LT 3V AP,LAT,ABELINO from 12/28/2018 FINDINGS: A single lateral view of the knee was obtained and shows total knee joint replacement position. The components appear well seated. There are degenerative changes at the tibial fibular joint. No other significant findings. IMPRESSION:
== END 2019-06-04 10:30 ==
PROVIDERS: PCP Family Medicine; Visit Provider Student in an Organized Health Care Education/Training Program
DX: M16.0 Bilateral primary osteoarthritis of hip (principal); M17.12 Unilateral primary osteoarthritis, left knee; Z96.651 Presence of right artificial knee joint; Z47.1 Aftercare following joint replacement surgery; I10 Essential (primary) hypertension
CPT/HCPCS: 73560; 77073

== ENCOUNTER → 2019-07-02 09:47 | Outpatient (BNVA) | payer MEDICARE, SELFPAY | PROVIDERS: PCP Family Medicine; Referring Provider Family Medicine; Visit Provider Student in an Organized Health Care Education/Training Program | DX: Z96.651 Presence of right artificial knee joint (principal); Z47.1 Aftercare following joint replacement surgery; I10 Essential (primary) hypertension ==

== ENCOUNTER → 2019-08-13 09:45 | Outpatient (BNVA) | payer MEDICARE, SELFPAY | PROVIDERS: PCP Family Medicine; Visit Provider Student in an Organized Health Care Education/Training Program | DX: Z96.651 Presence of right artificial knee joint (principal); Z47.1 Aftercare following joint replacement surgery ==

== ENCOUNTER → 2019-08-23 09:45 | Outpatient (BNVA) | payer MEDICARE, SELFPAY | PROVIDERS: PCP Family Medicine; Referring Provider Family Medicine; Visit Provider Psychiatry & Neurology Neurology | DX: G60.9 Hereditary and idiopathic neuropathy, unspecified (principal); I10 Essential (primary) hypertension | CPT/HCPCS: 99204; 99215 ==

== ENCOUNTER 2019-08-24 04:29 | Outpatient (CLI) | payer MEDICARE, SELFPAY ==
[2019-08-24 11:58] LABS: Hemoglobin A1C 5.7 % (3.8-5.6)
[2019-08-24 12:48] LABS: TSH (W/Ref FT4) 1.81 uIU/mL (0.36-3.74); Vitamin B12 474 pg/mL (193-986)
[2019-08-25 14:06] LABS: Albumin 64.3 % (55.8-66.1); Total Protein 7.3 g/dL (6.3-8.2)
== END 2019-08-24 04:49 ==
PROVIDERS: PCP Family Medicine; Visit Provider Psychiatry & Neurology Neurology
DX: E78.5 Hyperlipidemia, unspecified (principal); R73.9 Hyperglycemia, unspecified; G62.9 Polyneuropathy, unspecified
CPT/HCPCS: 36415; 82607; 83036; 84165; 84443

== ENCOUNTER → 2019-11-09 09:00 | Outpatient (BNVA) | payer MEDICARE, SELFPAY | PROVIDERS: PCP Nurse Practitioner; Referring Provider Family Medicine; Visit Provider Nurse Practitioner Adult Health | DX: G60.9 Hereditary and idiopathic neuropathy, unspecified (principal); R73.03 Prediabetes; I10 Essential (primary) hypertension | CPT/HCPCS: 99213 ==

== ENCOUNTER 2019-11-16 04:58 | Outpatient (CLI) | payer MEDICARE, SELFPAY ==
[2019-11-16 12:57] LABS: Anion Gap 7.9 mmol/L (3-11); BUN 23 mg/dL (7-18); CO2 26.1 mmol/L (21.0-32.0); Calcium 9.4 mg/dL (8.5-10.1); Calculated LDL 95 mg/dL (<100); Chloride 106 mmol/L (98-107); Cholesterol 182 mg/dL (<200); Estimated GFR 59.51 (mL/min/1.73m2); Glucose 95 mg/dL (74-106); HDL Cholesterol 30 mg/dL (40-60); Potassium 4.9 mmol/L (3.5-5.1); Sodium 140 mmol/L (136-145); Triglyceride 287 mg/dL (<150)
== END 2019-11-16 05:18 ==
PROVIDERS: PCP Nurse Practitioner; Visit Provider Family Medicine
DX: I10 Essential (primary) hypertension (principal); E78.5 Hyperlipidemia, unspecified
CPT/HCPCS: 36415; 80048; 80061

== ENCOUNTER 2019-11-18 11:53 | Outpatient (CLI) | payer MEDICARE, SELFPAY ==
--- NOTE | 2019-11-18 11:45 | DI.RAD_ITS ---
EXAM: XR SHOULDER RT COMPLETE 2+V CLINICAL HISTORY: R shoulder injury. TECHNIQUE: 2D digital imaging was performed. COMPARISON: No exams were available for comparison FINDINGS: BONES: No acute fracture is present. No bony destructive lesion is seen. JOINTS: No dislocation present. [id number] degenerative changes of the AC joint. SOFT TISSUE: Normal. IMPRESSION: Degenerative changes of the right AC joint. DATA REPOSITORY: RADIATION DOSE DELIVERED:
== END 2019-11-18 12:13 ==
PROVIDERS: PCP Nurse Practitioner; Referring Provider Nurse Practitioner; Visit Provider Student in an Organized Health Care Education/Training Program
DX: M19.011 Primary osteoarthritis, right shoulder (principal); M75.101 Unspecified rotator cuff tear or rupture of right shoulder, not specified as traumatic
CPT/HCPCS: 99214; 73030

== ENCOUNTER 2019-11-30 00:37 | Outpatient (CLI) | payer MEDICARE, SELFPAY ==
--- NOTE | 2019-11-30 09:30 | DI.MRI_ITS ---
EXAM: MR UPPER JOINT RT WO CLINICAL HISTORY: RT SHOULDER PAIN,[id number]. TECHNIQUE: Multiplanar multisequence MRI was performed. COMPARISON: MR MRI - L UPPER JOINT WO CONT from 08/20/2017 CR XR SHOULDER RT COMPLETE 2+V from 11/18/2019 FINDINGS: MR examination shoulder was performed according to the usual protocol. There is moderate-sized joint effusion of the glenohumeral joint significant fluid in subacromial sub deltoid bursa as well. Acromioclavicular joint: Severe hypertrophic changes of the AC joint with significant fragmentation a nd free bony fragments. Marked impingement on superior aspect myotendinous junction region of supras pinatus. Glenohumeral joint: There is an apparent transverse inferior posterior labral tear most clearly seen on the coronal proton density images. There may be a small osseous component of this tear and there are subchondral cysts subjacent to this area in the glenoid subchondral cysts are also present in the greater tuberosity of the humerus. Articular cartilage of the glenohumeral joint appears moderately thinned. Biceps tendon: Biceps tendon is markedly attenuated or absent from the bicipital groove presumably in dicating proximal biceps tendon tear. Rotator cuff: There is massive rotator cuff tear involving attachments of the scapularis, supraspinat us, and infraspinatus with retraction of supraspinatus by about 2 cm and retraction of infraspinatus tendon by about 2 cm as well. No significant fatty replacement of the rotator cuff musculature. No significant retraction subscapularis. IMPRESSION: Massive rotator cuff tear involving supraspinatus, infraspinatus, and subscapularis as described abov e. Retraction of supraspinatus and infraspinatus by about 2 cm. No significant fatty replacement ro tator cuff musculature. Minimally displaced tear of the inferior labrum with associated bony deformity as described above. Markedly attenuated or absent biceps tendon, presumed chronic proximal biceps tendon tear. DATA REPOSITORY:
== END 2019-11-30 00:57 ==
PROVIDERS: PCP Nurse Practitioner; Visit Provider Student in an Organized Health Care Education/Training Program
DX: M75.101 Unspecified rotator cuff tear or rupture of right shoulder, not specified as traumatic (principal)
CPT/HCPCS: 73221

== ENCOUNTER 2019-12-02 16:55 | Outpatient (REF) | payer MEDICARE, SELFPAY | END 2019-12-02 17:15 | LOC: LBN 16:55 | PROVIDERS: PCP Nurse Practitioner; Visit Provider Otolaryngology | DX: H92.11 Otorrhea, right ear (principal) | CPT/HCPCS: 87070 ==

== ENCOUNTER 2019-12-24 10:30 | Outpatient (CLI) | payer MEDICARE, SELFPAY | END 2019-12-24 10:50 | PROVIDERS: PCP Nurse Practitioner; Visit Provider Physician Assistant Surgical | DX: M17.12 Unilateral primary osteoarthritis, left knee (principal); Z96.651 Presence of right artificial knee joint; I10 Essential (primary) hypertension | CPT/HCPCS: 20610; 99213; J1040 ==

== ENCOUNTER 2019-12-30 01:46 | Outpatient (CLI) | payer MEDICARE, SELFPAY ==
--- NOTE | 2019-12-30 14:55 | DI.CT_ITS ---
EXAM: CT TEMPORAL BONE WO CLINICAL HISTORY: otorrhea rt ear,chronic serous otitis media,h82.11,h65.11,? bony defect. TECHNIQUE: Imaging Protocol: Axial computed tomography images with coronal and sagittal reformatted images were created and reviewed. CONTRAST MATERIAL: Noncontrast routine examination was performed. COMPARISON: CT CT SINUS WO from 12/17/2018 FINDINGS: Right Temporal Bone: The cochlea, vestibule, vestibular and cochlear aqueduct are normal. The facial nerve canal is well m aintained. The semicircular canals are unremarkable. There is no evidence of dehiscence. The internal auditory canal is within normal limits. There does appear to be some dehiscence of the tegmen tympan i. There is fluid seen in the middle ear. The middle ear ossicles are unremarkable. There is some thickening of the tympanic membrane. External auditory canal is unremarkable. There is opacification of the right mastoid air cells. The carotid canal and jugular foramen are within normal limits. The temporomandibular joint is unremarka ble. Left Temporal Bone: The cochlea, vestibule, vestibular and cochlear aqueduct are normal. The facial nerve canal is well m aintained. The semicircular canals are unremarkable. There is no evidence of dehiscence. The interna l auditory canal is within normal limits. The scutum and tegmen are within normal limits. There is no evidence of otosclerosis. The external auditory canal and mastoid air cells are normal. The carotid canal and jugular foramen a re within normal limits. The temporomandibular joint is unremarkable. IMPRESSION: Findings involving the right mastoid and middle ear as described above. Differential considerations include acute or chronic otitis media, otitis media with otomastoiditis, or cholesteatoma. Question of dehiscence of the tegmen tympani on the right. No definite ossicular erosion. RADIATION DOSE DELIVERED: 264mGy.cm Total DLP DATA REPOSITORY: All CT scans at this facility are submitted to the National Radiology Data Registry (NRDR) Dose Index Registry (DIR) with the [employer] (ACR). RADIATION OPTIMIZATION: All CT scans at this facility use at least one of these dose optimization te chniques: automated exposure control; mA and/or kV adjustment per patient size (includes targeted exa ms where dose is matched to clinical indication); or iterative reconstruction.
== END 2019-12-30 02:06 ==
PROVIDERS: PCP Nurse Practitioner; Visit Provider Otolaryngology
DX: H92.11 Otorrhea, right ear (principal); H65.21 Chronic serous otitis media, right ear
CPT/HCPCS: 70480

== ENCOUNTER → 2020-01-06 11:14 | Outpatient (BNVA) | payer MEDICARE, SELFPAY | PROVIDERS: PCP Nurse Practitioner; Referring Provider Nurse Practitioner; Visit Provider Student in an Organized Health Care Education/Training Program | DX: S46.011D Strain of muscle(s) and tendon(s) of the rotator cuff of right shoulder, subsequent encounter (principal); X58.XXXD Exposure to other specified factors, subsequent encounter; I10 Essential (primary) hypertension | CPT/HCPCS: 99213 ==

== ENCOUNTER 2020-01-14 02:16 | Outpatient (CLI) | payer MEDICARE, SELFPAY ==
[2020-01-17 10:12] LABS: SARS-CoV-2 RNA Not Detected (NotDetected); SARS-CoV-2 RNA Source Nasal/Nares
== END 2020-01-14 02:36 ==
PROVIDERS: PCP Nurse Practitioner; Visit Provider Student in an Organized Health Care Education/Training Program
DX: Z11.59 Encounter for screening for other viral diseases (principal); Z01.818 Encounter for other preprocedural examination
CPT/HCPCS: U0003

== ENCOUNTER 2020-01-18 07:52 | Day surgery (SDC) | payer MEDICARE, SELFPAY ==
[2020-01-18 08:04] VITALS: BP 149/96; PULSE 70; RESP 18; TEMP 36.8; O2SAT 94
[2020-01-18] MEDS: Lactated Ringers 1,000 ML 80 ML IV (08:34)
--- NOTE | 2020-01-18 09:15 | W.PM.DSUDISC ---
Discharge Plan Disposition Patient Disposition: HOME Condition: Good Discharge Details Reason For Visit: Right Rotator Cuff Tear Attending Provider: Tutu Rocha Primary Care Provider: Sarah Milan Home Meds and New Rx's Prescriptions: New acetaminophen 500 mg tablet 1,000 mg PO Q8H PRN (Reason: pain) Qty: 90 RF: 3 ibuprofen 600 mg tablet 600 mg PO TID PRNQty: 90 RF: 3 Continued [facility] 10 billion cell -200 mg tablet,chewable 1 tab PO DAILY PRNRF: 0 lisinopril 10 mg tablet 10 mg PO DAILY Qty: 90 RF: 4 albuterol sulfate [Proventil HFA] 90 mcg/actuation HFA aerosol inhaler 2 puff IH QID Qty: 8.5 RF: 1 glucosamine HCl 500 mg tablet 500 mg PO DAILY RF: 0 pregabalin [Lyrica] 100 mg capsule 100 mg PO BID Qty: 60 RF: 5 lidocaine 5 % cream 1 applic TP TID PRN (Reason: pain) Qty: 45 RF: 3 multivitamin [Daily Multi-Vitamin] 1 EACH tablet 1 ea PO DAILY RF: 0 Fish Oil 500 MG capsule 500 mg PO DAILY RF: 0 omeprazole 20 MG tablet,delayed release (DR/EC) 20 mg PO DAILY RF: 0 triamcinolone acetonide [Nasacort] 10.8 ML aerosol,spray 10.8 ml NS PRN PRNQty: 1 RF: 1 Discharge Instructions Additional Instructions: You may use Acetaminophen and Ibuprofen for baseline pain control. You have some Oxycodone leftover from the knee replacement surgery that you may use for any breakthrough pain on the shoulder. You will take this 1/2 -1 tab every 4 hours as needed. Stand Alone Forms: Josefina Shaikh w/RCR Referrals: Tutu Rocha MD [ [facility] STAFF PHYSICIAN] - Equipment/Supplies: Sling Activity:: In sling except for hygiene Remove Dressings/Wound Care:: 72 hours Shower/Bathe:: 72 hours Diet:: As Tolerated Discharge Orders Discharge Orders: Discharge Order (Routine); Ordered 01/18/20 Ordered By: Tutu Rocha DS: Diagnosis Discharge Diagnosis (1) Right rotator cuff tear: Status: Acute
[2020-01-18] MEDS: ceFAZolin 2 GM/50 ML BAG IVPB (09:35)
[2020-01-18] MEDS: EPINEPHrine 30 MG/30 ML VIAL (11:13)
[2020-01-18 12:09] VITALS: BP 87/47; PULSE 74; RESP 15; TEMP 36.5; O2SAT 95
[2020-01-18 12:14] VITALS: BP 83/54; PULSE 74; RESP 14; TEMP 36.5; O2SAT 97
[2020-01-18 12:19] VITALS: BP 83/54; PULSE 74; RESP 14; TEMP 36.5; O2SAT 97
[2020-01-18 12:34] VITALS: BP 91/58; PULSE 73; RESP 13; TEMP 36.5; O2SAT 97
[2020-01-18 13:20] VITALS: BP 92/58; PULSE 66; RESP 17; TEMP 36.2; O2SAT 94
--- NOTE | 2020-01-19 14:45 | PDOC.ANES ---
Anesthesia Note Anesthesia note: Mr Gaona was called by the ROTARY ENGRAVER for a routine followup this afternoon and stated that he was having trouble breathing. 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 He received an Interscalene Block and Supraficial Cervical Plexus Block for post op analgesia. On a telephone call back, Mr. Gaona stated that his breathing was OK He said that it it felt hard to take a deep breath but his breathing when resting was fine. He described that he became a bit winded when coming back up the hill from my mailbox and wanted to double check to see if anything was wrong. He stated , as well, that he had the same trouble breathing yesterday right after surgery but did not want to bother anyone with it. I described how the Phrenic Nerve can sometimes be effected by an Interscalene Nerve Block. The patient verbalized understanding. He does not describe any signs of Darion's Syndrome. Incidentally, he states that he has no pain from the shoulder surgery. He also understands that his breathing will improve when the block wears off. He has been instructed to call back Anesthesia with any further questions or if he has any worsening symptoms to go to the ED.
--- NOTE | 2020-01-19 18:13 | ROE_ITS ---
Date of service: 01/18/20 Time of Service: 12:13 Operative Note Operative Note DATE OF PROCEDURE: 01/18/20 PRE-OP DIAGNOSIS: Right Rotator Cuff Tear POST-OP DIAGNOSIS: same PROCEDURE: - Arthroscopic Rotator Cuff Repair - Extensive debridement of anterior and posterior glenohumeral joint and rotator cuff SURGEON: Tutu Rocha CITY PLANNER: Blake Diaz ANESTHESIA: GETA and regional ESTIMATED BLOOD LOSS: 0 PATHOLOGY: none sent COMPLICATIONS: None Patient was transported to: PACU Patient's condition: stable Indications: I have seen Chandrakant in clinic for a painful shoulder after a traumatic event with notable weakness. Pathology was confirmed based on MRI and exam findings. Nonoperative measures were exhausted but disability and pain persisted. I discussed shoulder arthroscopy and procedures. I reviewed the risks of the procedures to include, but not limited to, bleeding, infection, pain, stiffness, damage to nerves or vessels, recurrence, hardware failure, blood clot. Despite these risks, the patient elected to proceed. Findings: A diagnostic arthroscopy was performed with the following findings: Articular Side - Glenohumeral Joint: Some mild arthritic changes over the anterior and the posterior aspect of the glenoid - Labrum: Tearing of the superior labrum associated with biceps tear - Cuff: Complete tear of the upper subscapularis in a sleeve with torn supraspinatus and infraspinatus - Biceps: Absent biceps tendon Subacromial Side - Bursal: Thickened bursa - Rotator Cuff: Complete tear avulsed off of the tuberosity with a small lamination of the infraspinatus. Intact teres. - No significant spurring Procedure Description: Chandrakant was greeted in the preoperative holding area where the correct side was identified and marked. The consent was reviewed with the patient and signed. The history and physical was updated. All questions were answered. Chandrakant was taken back to the PACU for administration of an intrascalene nerve block. Chandrakant was then taken to the operating room. The patient was placed into the supine position on the operating room table. A general anesthetic was administered. He was then positioned in the beach chair position. All bony prominences were well padded. The head was placed in a foam host/hostess head in a neutral position. Prophylactic antibiotics in the form of Cefazolin were administered. The right arm/shoulder was then prepped with Chloraprep and draped in a standard fashion with stockinette and shoulder drape. A timeout to confirm correct identity, side and site, procedure, allergies, anesthesia, and medical concerns was performed. The arm was placed into a pneumatic belle, [id number]. The shoulder arthroscopy was then performed. The glenohumeral joint was injected with 20 cc of normal saline with good flow back. A standard posterior portal was made and the joint was entered atraumatically with a blunt arthroscope. Once inside we had good visualization of the structures of the glenohumeral joint. An anterior portal was established with spinal needle localization. A 6.5 mm cannula was inserted. A probe was then used to perform a diagnostic arthroscopy. There is noted to be fragmentation and cartilage wear anteriorly and posteriorly but overall maintained. The labrum was frayed superiorly and torn posteriorly. There were no loose bodies in the inferior pouch. The superior rotator cuff was completely torn, avulsed off of the greater tuberosity. The biceps tendon was absent with a large stump from the superior labrum. The subscapularis was torn in the upper 1/3 without significant retration. I then used an arthroscopic shaver to debride the frayed labrum anteriorly and the torn labrum posteriorly. Electrocautery device was also used to help contour the remaining stump of the biceps tendon. Some the rotator interval was opened and the subscapularis was fully probed and the tear was defined. An anterior lateral portal was then made in the subacromial space with a spinal needle and entered into the joint space through the superior rotator cuff tear. A 7.5 mm cannula was placed here. I then debrided down the lesser tuberosity which was exposed. A 4.5 mm Mytec Healix anchor was then placed. 2 horizontal mattress sutures were then placed without difficulty which brought the subscapularis back onto the tuberosity without gapping. This repair was probed and was also tested to 60 degrees of external rotation without any gapping or pull off. I continued to debride the undersurface of the rotator cuff stump. The arthroscope was then inserted into the subacromial space. The 6.5 mm johnnie merle was placed lateral to the CA ligament. A complete bursectomy is performed anteriorly, posteriorly, and laterally with electrocautery and shaver. This had excellent exposure of the rotator cuff. The rotator cuff was completely torn and a sleeve type avulsion with a large surface area of torn rotator cuff likely avulsed off of the tuberosity. Using a spinal needle a posterior lateral portal was established. This became the viewing portal. The previous anterior lateral portal became the working portal. I then probed the rotator cuff to fully inspected. It was mobile and able to be easily reduced back to the tuberosity. Additionally, there seem to be a very small portion of retracted infraspinatus which was identified. The traction suture was placed into this piece for later mobilization. A shaver was used to debride the rotator cuff edge back to healthier tissue. I also used a shaver to debride the tuberosity of any remaining soft tissue and also decorticate the bone for better bleeding and healing potential. I then placed 3 Medial Row anchors. These were 4.5 mm Mytec Healix advanced anchors One of the suture limbs from the posterior anchor was used to reattach the laminated portion of the infraspinatus. I then used the remaining suture limbs to place 5 horizontal mattress sutures. This first pass was attempted to be placed at the medial edge of the roughened rotator cuff which is assumed to be as articular margin which was pulled off. These sutures were then tied using standard arthroscopic knot tying techniques. This very nicely reapproximated the tendon back down to bone. I then used 1 suture limb from each of these sutures to create a lateral row construct. These 5 sutures were placed into a knotless 4.75 mm Mytec Healix anchor placed into the lateral tuberosity. These were tightened and they lay down nicely overlying the rotator cuff. This was repeated for a second lateral row anchor. The suture limbs were then cut. There is no dogear. There was a small defect between the rotator interval anteriorly and the anterior border of the supraspinatus tendon. I placed 2 simple sutures between the central to tie down and cover up the space between the anterior soft tissues and the supraspinatus. The scope equipment was removed from the shoulder. Excess fluid was evacuated. The portal sites were closed with 3-0 Monocryl. The wounds were dressed with 4 x 4's, ABDs, Medipore tape. A sling was applied. The patient tolerated the procedure well and was returned to the PACU in a stable condition suffering no known complication.
== END 2020-01-18 14:00 | disposition home or self-care (01) ==
PROVIDERS: PCP Nurse Practitioner; Visit Provider Student in an Organized Health Care Education/Training Program
PROC: (CPT 29827; principal; 2020-01-18 10:30)
DX: S46.011A Strain of muscle(s) and tendon(s) of the rotator cuff of right shoulder, initial encounter (principal); E78.5 Hyperlipidemia, unspecified; G62.9 Polyneuropathy, unspecified; M54.16 Radiculopathy, lumbar region; X58.XXXA Exposure to other specified factors, initial encounter
CPT/HCPCS: 29827; 29823; 76942; L3670; J0690; J1100; J2405

== ENCOUNTER → 2020-02-28 07:25 | Outpatient (BNVA) | payer MEDICARE, SELFPAY | PROVIDERS: PCP Nurse Practitioner; Referring Provider Nurse Practitioner; Visit Provider Nurse Practitioner Adult Health | DX: G60.9 Hereditary and idiopathic neuropathy, unspecified (principal); R73.03 Prediabetes | CPT/HCPCS: 99213; 99441 ==

== ENCOUNTER → 2020-02-28 10:58 | Outpatient (BNVA) | payer MEDICARE, SELFPAY | PROVIDERS: PCP Nurse Practitioner; Visit Provider Student in an Organized Health Care Education/Training Program | DX: Z47.89 Encounter for other orthopedic aftercare (principal); M25.511 Pain in right shoulder ==

== ENCOUNTER → 2020-04-10 10:59 | Outpatient (BNVA) | payer MEDICARE, SELFPAY | PROVIDERS: PCP Nurse Practitioner; Referring Provider Nurse Practitioner; Visit Provider Student in an Organized Health Care Education/Training Program | DX: Z47.89 Encounter for other orthopedic aftercare (principal) ==

== ENCOUNTER → 2020-05-29 12:28 | Outpatient (BNVA) | payer MEDICARE, SELFPAY | PROVIDERS: PCP Nurse Practitioner; Referring Provider Nurse Practitioner; Visit Provider Nurse Practitioner Adult Health | DX: G60.9 Hereditary and idiopathic neuropathy, unspecified (principal) | CPT/HCPCS: 99213 ==

== ENCOUNTER → 2020-06-02 09:29 | Outpatient (BNVA) | payer MEDICARE, SELFPAY | PROVIDERS: PCP Nurse Practitioner; Referring Provider Nurse Practitioner; Visit Provider Surgery | DX: K62.5 Hemorrhage of anus and rectum (principal); R10.13 Epigastric pain; G96.01 Cranial cerebrospinal fluid leak, spontaneous | CPT/HCPCS: 99213; 99215 ==

== ENCOUNTER 2020-06-05 10:34 | Outpatient (CLI) | payer MEDICARE, SELFPAY ==
--- NOTE | 2020-06-05 09:00 | DI.RAD_ITS ---
EXAM: XR KNEE RT 2V AP,LAT CLINICAL HISTORY: annual f/u R TKA. TECHNIQUE: 2D digital imaging was performed. COMPARISON: CR XR KNEE RT 1V from 06/04/2019 CR XR KNEE RT 1V from 06/04/2019 FINDINGS: Again noted is a right knee prosthesis. Components remain in satisfactory position alignment. No fr acture or loosening. No radiographic evidence of osteomyelitis. IMPRESSION: DATA REPOSITORY: RADIATION DOSE DELIVERED:
== END 2020-06-05 10:35 | disposition home or self-care (01) ==
LOC: DIORS 10:34
PROVIDERS: PCP Nurse Practitioner; Referring Provider Nurse Practitioner; Visit Provider Student in an Organized Health Care Education/Training Program
DX: Z96.651 Presence of right artificial knee joint (principal); M25.511 Pain in right shoulder; S46.011S Strain of muscle(s) and tendon(s) of the rotator cuff of right shoulder, sequela; M17.12 Unilateral primary osteoarthritis, left knee
CPT/HCPCS: 99213; 73560

== ENCOUNTER 2020-06-16 08:46 | Outpatient (CLI) | payer MEDICARE, SELFPAY ==
[2020-06-16 10:14] LABS: Source Nasal/Nares
[2020-06-16 21:16] LABS: COVID-19 PCR Negative (Negative)
== END 2020-06-16 08:47 | disposition home or self-care (01) ==
PROVIDERS: PCP Nurse Practitioner; Visit Provider Surgery
DX: Z20.822 Contact with and (suspected) exposure to COVID-19 (principal); Z01.818 Encounter for other preprocedural examination
CPT/HCPCS: 87635

== ENCOUNTER 2020-06-19 07:14 | Day surgery (SDC) | payer MEDICARE, SELFPAY ==
--- NOTE | 2020-06-19 06:42 | ENDO_ITS ---
Date of service: 06/19/20 Time of Service: 08:14 Endoscopy Report DATE OF PROCEDURE: 06/19/20 PRE-OP DIAGNOSIS: Hx of polyps, rectal bleeding, GERD POST-OP DIAGNOSIS: other (polyps, diverticuloisis, gastritis and esophagitis) PROCEDURE: 1. EGD with biopsies 2. Colonoscopy with biopsies SURGEON: Jazlyn Cortez ANESTHESIA TYPE: General:No Airway (ASA 3/Mansi Conway, FAVIOLA) ESTIMATED BLOOD LOSS: 5 PATHOLOGY: none sent (antrum and GE junction bx, Ascending, transverse and descending colon polyp) COMPLICATIONS: None DISPOSITION: same day INDICATIONS: Javi is 2 years out from his last colonoscopy. 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 He has noticed blood in his stool and is very worried about that. His PCP did a rectal exam and didn't see any hemorrhoids. We discussed differential of hemorrhoids bleeding, diverticular bleed (although this usually doesnt come and go), and a polyp that is bleeding. Discussed colonoscopy under sedation. [place] [facility] [place] sure that doing a procedure would not be contraindicated at this time Risks, benefits and complications have been reviewed. Complications include but are not limited to bleeding, pain, perforation, missed small lesion/polyp, sore throat, aspiration and adverse reaction to the medications. Questions were entertained and answered to their satisfaction and they wished to proceed. No guarantees were given or implied. Risks, benefits and complications have been reviewed. Complications include but are not limited to bleeding, pain, perforation, missed small lesion/polyp, sore throat, aspiration and adverse reaction to the medications. Questions were entertained and answered to their satisfaction and they wished to proceed. No guarantees were given or implied. I spent 45 minutes in reviewing the record, seeing the patient and documenting in the medical record. (2) Epigastric pain: Intermittent epigastric pain and nausea Hx of GERD but not on Antacids EGD under sedation Risks, benefits and complications have been reviewed. Complications include but are not limited to bleeding, pain, perforation, sore throat, aspiration, and adverse reaction to the medications. Questions were entertained and answered to their satisfaction and they wished to proceed. No guarantees were given or implied. PREP: Miralax/Dulcolax PROCEDURE START TIME: 08:14 PROCEDURE END TIME: 08:48 COLONOSCOPY RETRACTION TIME: 12 minutes FINDINGS: 1. Inflammation of the stomach and esophagus 2. colon polyps x3 3. Diverticulosis 4. Small internal hemorrhoids PROCEDURE DESCRIPTION: After informed consent was obtained the patient was take to the procedure room and placed in a supine position. Monitors were applied and a time out was done. The patients name, date of , procedure type, allergies to medications and metal in their body was reviewed. A bite block was placed and the patient was sedated. Once sedated and comfortable the gastroscope was advanced through the oropharynx which was grossly normal into the esophagus. The proximal and mid- esophagus were normal. In the distal esophagus there was mild inflammation noted. The scope was advanced into the stomach and through the pylorus into the 3rd portion of the duodenum. The duodenum was noted to be normal. The scope was retracted back into the stomach. There was moderate inflammation noted in the antrum and body. Biopsies were done to rule out H. pylori. There were no ulcers. The scope was retro-flexed. The cardia and fundus were noted to be normal. There was a small hiatal hernia noted. The scope was retracted back into the esophagus and biopsies were done of the GE junction to rule out Naik's. The Z line was regular. The GE junction was at 40 cm. While the patient was still sedated they were placed in a left decubitous position. A rectal exam was done. External exam was normal. Internal exam revealed a normal sphincter tone and no palpable masses. The prostate felt smooth. The scope was then introduced and retro-flexed. Grade 1 internal hemorrhoids were noted on retro-flexion. No masses or polyps were identified on retroflexion. The scope was then advanced to the cecum without difficulty. The ileocecal valve and appendiceal orifice were identified. The prep was adequate. The scope was then slowly retracted over 12 minutes back into the rectum. Polyps were removed with cold forceps in the ascending colon, transverse colon and descending colon. There was moderate riggs-diverticulosis noted. The anastamosis was noted to be wide open. The scope was removed and the patient was woken up and taken back to Same day surgery in stable condition. The patient tolerated the procedure well and there were no immediate complications. Follow up: 3 years for the next colonoscopy.
--- NOTE | 2020-06-19 06:44 | W.PM.DSUDISC ---
Discharge Plan Disposition Patient Disposition: HOME Condition: Good Discharge Details Reason For Visit: [place]/EGD Attending Provider: Jazlyn Cortez Primary Care Provider: Sarah Milan Home Meds and New Rx's Prescriptions: Continued lisinopril 10 mg tablet 10 mg PO DAILY Qty: 90 RF: 4 albuterol sulfate [Proventil HFA] 90 mcg/actuation HFA aerosol inhaler 2 puff IH QID Qty: 8.5 RF: 1 glucosamine HCl 500 mg tablet 500 mg PO DAILY RF: 0 pregabalin [Lyrica] 100 mg capsule 100 mg PO TID Qty: 90 RF: 5 multivitamin [Daily Multi-Vitamin] 1 EACH tablet 1 ea PO DAILY RF: 0 Fish Oil 500 MG capsule 500 mg PO DAILY RF: 0 omeprazole 20 MG tablet,delayed release (DR/EC) 20 mg PO DAILY RF: 0 triamcinolone acetonide [Nasacort] 10.8 ML aerosol,spray 10.8 ml NS PRN PRNQty: 1 RF: 1 acetaminophen 500 mg tablet 1,000 mg PO Q8H PRN (Reason: pain) Qty: 90 RF: 3 ibuprofen 600 mg tablet 600 mg PO TID PRNQty: 90 RF: 3 methylcellulose (with sugar) Powder In Packet PO RF: 0 Discharge Instructions Instructions: Diet for Stomach Ulcers and Gastritis (ED), Gastritis (DC), Esophagitis (DC), Diverticulosis (DC) Additional Instructions: Findings: 1. Inflammation of the stomach, esophagus 2. Diverticulosis 3. Small internal hemorrhoids 4. Large bowel polyps x3 Follow up: I will call you with results Medications: Increase Omeprazole to 40 mg daily Please call if you develop: fevers >101.5 Nausea or Vomiting Abdominal pain that is not transient DAY SURGERY UNIT POST ENDOSCOPY INSTRUCTIONS 1. Because there will be medication in your system for the next 24 hours, you may feel a little sleepy. Your coordination will be affected. Therefore: a. Do not drive or operate dangerous equipment for 24 hours. b. Do not drink alcohol beverages for 24 hours (not even beer). c. Plan to go home and rest for the day. 2. Generally there are no restrictions on your activity after a day or so has gone by, but you may feel a bit fatigued for a few days. 3 After you arrive home you may have a light meal and return to a normal diet as you can tolerate it without feeling sick to your stomach. 4. After surgery, you may feel pain or discomfort. This should be only transient, but if it persists please contact your doctor. 5. If there are any questions regarding the findings of your procedure, please feel free to contact your doctor. 6. If you are unable to contact your doctor with a problem, contact the hospital at [phone]. 7. Continue all your regular medications unless directed otherwise. I understand the above instructions and have no questions. Signature of Patient or Responsible Adult Escort Date/Time Name of Responsible Adult Escort Signature of Nurse Date/Time Activity:: Activity as Tolerated Diet:: As Tolerated Discharge Orders Discharge Orders: Discharge Order (Routine); Ordered 06/19/20 Ordered By: Jazlyn Cortez
[2020-06-19 07:39] VITALS: BP 149/101; PULSE 80; RESP 18; TEMP 36.1; O2SAT 97
[2020-06-19] MEDS: Lactated Ringers 1,000 ML 80 ML IV (07:55)
--- NOTE | 2020-06-19 08:16 | STOM_PTH ---
PATIENT: Javi Gaona LOC: [facility] U#:[id number] AGE/SX: 75/M ROOM: RE06/19/[address]: Jazlyn Cortez MD : [id number] BED: DIS: 06/19/2020 SPEC #: [id number] RECD: 06/19/20 12:36 STATUS: MICHELLE RE #: [id number] MANNY: 06/19/20 08:[address]: Jazlyn Cortez DEPT: Surgical Specimen RECD BY: Afua Sandoval ENTERED: 06/19/20 12:38 SP TYPE: STOMACH OTHR DR: Sarah Milan, PhD SIEBEL DEVELOPER Tissues: 1 - BIOPSY BOWEL 2 - STOMACH BIOPSY 3 - ESOPHAGUS BIOPSY 4 - BIOPSY BOWEL 5 - BIOPSY BOWEL 6 - BIOPSY BOWEL Procedures: GROSS AND MICRO LEVEL 4 Comments: [id number]
[2020-06-19 09:21] VITALS: BP 123/80; PULSE 70; RESP 18; TEMP 36.2; O2SAT 96
== END 2020-06-19 10:02 | disposition home or self-care (01) ==
LOC: SUR 07:14
PROVIDERS: PCP Nurse Practitioner; Visit Provider Surgery
PROC: (CPT 45380; principal; 2020-06-19 08:15)
DX: K21.00 Gastro-esophageal reflux disease with esophagitis, without bleeding; I10 Essential (primary) hypertension; K31.89 Other diseases of stomach and duodenum; D12.3 Benign neoplasm of transverse colon; D12.2 Benign neoplasm of ascending colon; K44.9 Diaphragmatic hernia without obstruction or gangrene; K64.8 Other hemorrhoids; K57.30 Diverticulosis of large intestine without perforation or abscess without bleeding
CPT/HCPCS: 45380; 43239; 88305; J2001

== ENCOUNTER 2020-06-24 10:35 | Emergency (ER) | payer MEDICARE, SELFPAY ==
[2020-06-24 10:56] VITALS: BP 155/99; PULSE 77; RESP 18; TEMP 36.3; O2SAT 94
--- NOTE | 2020-06-24 10:58 | W.ED.GENAD ---
Discharge Plan Disposition Patient Disposition: HOME Condition: Good Discharge Details Clinical Impression: Laceration, Laceration of left thumb Primary Care Provider: Sarah Milan ED Provider: Yayo Hanna Home Meds and New Rx's Prescriptions: Continued lisinopril 10 mg tablet 10 mg PO DAILY Qty: 90 RF: 4 albuterol sulfate [Proventil HFA] 90 mcg/actuation HFA aerosol inhaler 2 puff IH QID Qty: 8.5 RF: 1 glucosamine HCl 500 mg tablet 500 mg PO DAILY RF: 0 pregabalin [Lyrica] 100 mg capsule 100 mg PO TID Qty: 90 RF: 5 multivitamin [Daily Multi-Vitamin] 1 EACH tablet 1 ea PO DAILY RF: 0 Fish Oil 500 MG capsule 500 mg PO DAILY RF: 0 omeprazole 20 MG tablet,delayed release (DR/EC) 20 mg PO DAILY RF: 0 triamcinolone acetonide [Nasacort] 10.8 ML aerosol,spray 10.8 ml NS PRN PRNQty: 1 RF: 1 acetaminophen 500 mg tablet 1,000 mg PO Q8H PRN (Reason: pain) Qty: 90 RF: 3 ibuprofen 600 mg tablet 600 mg PO TID PRNQty: 90 RF: 3 methylcellulose (with sugar) Powder In Packet PO RF: 0 Discharge Instructions Instructions: Care For Your Stitches (ED), Laceration (ED) Additional Instructions: Please leave the dressing on for 24 hours, then you may remove and begin cleaning the wound at least twice a day with soap and water. Continue to apply antibiotic ointment. Do not directly soak the area. Watch for any signs of infection and return if any increasing redness, swelling, pain, drainage. You can return in 7 to 10 days to have your sutures reevaluated for potential removal. If you notice any worsening of your symptoms, or any new symptoms such as vomiting, diarrhea, fever, chills, shortness of breath, chest pain, numbness, weakness, or fainting , please return immediately to the emergency department for reevaluation. Please follow up with your primary care provider as soon as possible for reassessment and reevaluation. As always, it was a pleasure participating in your medical care today. Referrals: Sarah Milan NP [Primary Care Provider] - Medical Decision Making 75-year-old male who is not on blood thinners presents today for evaluation of laceration to his nondominant left thumb. Patient states he was using one of his clean pocket knife when it slipped and slit the palmar aspect of his distal thumb. He came in for further evaluation. He denies weakness numbness or tingling. He is uncertain of his tetanus status. No other complaints at this time. Tetanus status is up-to-date. The patient demonstrates a 1.75 cm laceration to the palmar aspect of the distal thumb. No neurovascular compromise, no evidence of tendon involvement. Good strength. Patient will be sutured, 4 simple interrupted sutures were placed. No complications. Patient tolerated procedure well. Patient will be discharged home. Discussed red flags which return. I have extensively reviewed the treatment plan and discharge instructions with the patient. I have addressed all patient concerns at this time. The patient was made aware of what symptoms to monitor for that would warrant a return to the emergency department. Discussed the plan with the patient, they demonstrate verbal understanding and agreement with our assessment and plan at this time. The documentation in this chart was dictated using [employer] dictation software. Please excuse any dictation errors. HPI General Date/Time Provider Initiated Documentation: 06/24/20 10:52. HPI Narrative: 75-year-old male who is not on blood thinners presents today for evaluation of laceration to his nondominant left thumb. Patient states he was using one of his clean pocket knife when it slipped and slit the palmar aspect of his distal thumb. He came in for further evaluation. He denies weakness numbness or tingling. He is uncertain of his tetanus status. No other complaints at this time. Related Data Home Medications Medication Instructions Recorded Confirmed Fish Oil 500 mg PO DAILY 12/28/12 06/24/20 multivitamin [Daily Multi-Vitamin] 1 ea PO DAILY 12/28/12 06/24/20 omeprazole 20 mg PO DAILY 12/28/12 06/24/20 triamcinolone acetonide [Nasacort] 10.8 ml NS PRN PRN #1 spray 08/15/14 06/24/20 glucosamine HCl 500 mg tablet 500 mg PO DAILY tab 08/23/19 06/24/20 albuterol sulfate 90 mcg/actuation 2 puff IH QID #8.5 gm 11/12/19 06/24/20 aerosol inhaler lisinopril 10 mg tablet 10 mg PO DAILY #90 tab-cap 11/12/19 06/24/20 acetaminophen 1,000 mg PO Q8H PRN #90 tab 01/18/20 06/24/20 ibuprofen 600 mg PO TID PRN #90 tab 01/18/20 06/24/20 pregabalin 100 mg capsule 100 mg PO TID #90 cap 05/29/20 06/24/20 methylcellulose (with sugar) packet PO 06/16/20 Previous Rx's Medication Instructions Recorded triamcinolone acetonide [Nasacort] 10.8 ml NS PRN PRN #1 spray 08/15/14 albuterol sulfate 90 mcg/actuation 2 puff IH QID #8.5 gm 11/12/19 aerosol inhaler lisinopril 10 mg tablet 10 mg PO DAILY #90 tab-cap 11/12/19 acetaminophen 1,000 mg PO Q8H PRN #90 tab 01/18/20 ibuprofen 600 mg PO TID PRN #90 tab 01/18/20 pregabalin 100 mg capsule 100 mg PO TID #90 cap 05/29/20 Allergies Allergy/AdvReac Type Severity Reaction Status Date / Time Penicillins Allergy Unknown Verified 06/24/20 11:00 Tegaderm acyrlic adhesive AdvReac rash Uncoded 06/24/20 11:00 Review of Systems All systems reviewed & are unremarkable except as noted in HPI and below PFSH Medical History Calculus of gallbladder without cholecystitis without obstruction (09/22/15) Carpal tunnel syndrome on both sides (08/25/15) Chronic serous otitis media, right ear CSF otorrhea Diverticulitis of colon COLONOSCOPY-06/17/14; DR. DELUNA Dysfunction of right eustachian tube Essential hypertension (07/13/13) GERD (gastroesophageal reflux disease) Hearing loss Hyperlipidemia Left lumbar radiculopathy (03/07/16) Obesity (07/23/12) Perforated diverticulitis (05/06/14) Polymyalgia rheumatica (10/13/15) Prediabetes Primary osteoarthritis of right knee knee replaced Umbilical hernia Unilateral primary osteoarthritis, left knee Injected: 12/24/19; 12/28/2018 Surgical History Complete tear of left rotator cuff (05/28/17) S/P Repair Had to have 2 surgeries after an anchor was pulled H/O esophagogastroduodenoscopy (~05/25/18) History of cholecystectomy (10/08/15) History of exploratory laparotomy (07/26/14) History of umbilical hernia repair repair of wound dehisence Reports 4 surgeries in 2015 Required skin graft and now has mesh in place Right rotator cuff tear S/P repair: 01/18/2020 S/P colonoscopy (~05/25/18) Sigmoidoscopy 07/26/14; DR. 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 Brother Diabetes Son No problems noted. Daughter No problems noted. Daughter No problems noted. Daughter No problems noted. 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 Pets and animals: Yes Pets and animals: cat(s) Sexually active: No Do you think of yourself as: straight/heterosexual Current gender identity: male What is your relationship status?: How often do you talk on the phone with friends or family?: three or more times per week How often do you get together with friends or relatives?: three or more times per week How often do you attend yarsanism or yazdanism services?: decline to answer Do you belong to any clubs or organized social groups?: no Panel score (0-1 are the most socially isolated patients): 2 What type of physical activity do you participate in: none Amrie/Baptism: None Special marie needs: No Seatbelt use: always Helmet use: No Drive intox or ride w/intox 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 3.ENT: Atraumatic external nose and ears. Moist MM. Neck: Symmetric, trachea midline, No thyromegaly. 4.CVS: +S1/S2, No murmurs or gallops. Peripheral pulses 2+ and equal in all extremities. Brisk capillary refill in all extremities. 5.RESP: Unlabored respiratory effort. Clear to auscultation bilaterally. No wheezes rales or rhonchi 6.GI: Soft, Nontender/Nondistended, No hepatosplenomegaly. No guarding or rebound. 7.MSK: Patient's left distal thumb demonstrates a 1.75 cm laceration linearly proximal to distal. Appears superficial with no involvement of the tendon or muscle itself. There is fat involvement though. Sensation including two-point discrimination is intact at the distal tip. The patient demonstrates good flexion extension abduction and adduction. No other abnormalities. No bleeding at this time. 8.Skin: 1.75 cm laceration. 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 Sensation grossly intact, no focal neurologic deficits. 10.Psych: (AAO) x3. Appropriate mood and affect Procedures Laceration Laceration 1: Site: hand (left thumb) Side (If applicable): left Size (cm): 1.75 Description: linear Depth: simple, single layer Local Anesthetic: Lidocaine 1% Amount of anesthesia used (mL): 1 Pre-repair: wound explored, irrigated extensively and deep structures intact Skin layer closed with: nylon Size (cm): 4-0 Number of sutures: 4 Technique: simple, interrupted
[2020-06-24] MEDS: Lidocaine/Epinephri/Tetracaine Topical Gel 3 ML (11:10)
== END 2020-06-24 11:30 | disposition home or self-care (01) ==
PROVIDERS: Emergency Provider Student in an Organized Health Care Education/Training Program; PCP Nurse Practitioner
DX: S61.012A Laceration without foreign body of left thumb without damage to nail, initial encounter (principal); W26.0XXA Contact with knife, initial encounter
CPT/HCPCS: 12001

== ENCOUNTER 2020-07-02 08:30 | Emergency (ER) | payer MEDICARE, SELFPAY ==
--- NOTE | 2020-07-02 08:31 | ED.GENADUL_ITS ---
Discharge Plan Disposition Patient Disposition: HOME Condition: Good Discharge Details Clinical Impression: Encounter for removal of sutures Primary Care Provider: Sarah Milan ED Provider: Kristi Lewis Home Meds and New Rx's Prescriptions: Continued lisinopril 10 mg tablet 10 mg PO DAILY Qty: 90 RF: 4 albuterol sulfate [Proventil HFA] 90 mcg/actuation HFA aerosol inhaler 2 puff IH QID Qty: 8.5 RF: 1 glucosamine HCl 500 mg tablet 500 mg PO DAILY RF: 0 pregabalin [Lyrica] 100 mg capsule 100 mg PO TID Qty: 90 RF: 5 multivitamin [Daily Multi-Vitamin] 1 EACH tablet 1 ea PO DAILY RF: 0 Fish Oil 500 MG capsule 500 mg PO DAILY RF: 0 omeprazole 20 MG tablet,delayed release (DR/EC) 20 mg PO DAILY RF: 0 triamcinolone acetonide [Nasacort] 10.8 ML aerosol,spray 10.8 ml NS PRN PRNQty: 1 RF: 1 acetaminophen 500 mg tablet 1,000 mg PO Q8H PRN (Reason: pain) Qty: 90 RF: 3 ibuprofen 600 mg tablet 600 mg PO TID PRNQty: 90 RF: 3 methylcellulose (with sugar) Powder In Packet PO RF: 0 Discharge Instructions Instructions: Stitches Removal (ED) Additional Instructions: Your wound appears to be healing well. Please monitor for signs of infection including redness, warmth, drainage, increased pain, fever/chills. If you arrive please seek care urgently once again. Otherwise complete follow-up with primary care as routinely scheduled. Referrals: Sarah Milan, [facility] [Primary Care Provider] - Medical Decision Making Patient is a pleasant 75-year-old [id number] male presenting today with chief complaint of laceration to left thumb. Patient was seen here 8 days ago at which time he had #4 simple interrupted sutures placed. He reports that wound has been healing well. No erythema, warmth or drainage noted on exam. #4 simple interrupted stitches were removed by myself without incident. Patient tolerated this well. Continued wound care was discussed with the patient. We discussed return precautions, in particular signs of infection. All the questions and concerns were addressed and he is in agreement this plan. HPI General Mode of arrival: ambulatory . Date/Time Provider Initiated Documentation: 07/02/20 08:31 . Limitations to Documentation: no limitations . Information obtained by: patient and RN notes reviewed . History of Present Illness 75 year old M presents to the emergency department with the chief complaint of suture removal, described as mild (denies any pain), Patient started experiencing this day(s) (8) and it has been now resolved. No relieving factors improve symptom(s), No exacerbating factors reported . Patient notes no other symptoms.. Patient did receive the following treatments prior to arrival, none Related Data Home Medications Medication Instructions Recorded Confirmed Fish Oil 500 mg PO DAILY 12/28/12 07/02/20 multivitamin [Daily Multi-Vitamin] 1 ea PO DAILY 12/28/12 07/02/20 omeprazole 20 mg PO DAILY 12/28/12 07/02/20 triamcinolone acetonide [Nasacort] 10.8 ml NS PRN PRN #1 spray 08/15/14 07/02/20 glucosamine HCl 500 mg tablet 500 mg PO DAILY tab 08/23/19 07/02/20 albuterol sulfate 90 mcg/actuation 2 puff IH QID #8.5 gm 11/12/19 07/02/20 aerosol inhaler lisinopril 10 mg tablet 10 mg PO DAILY #90 tab-cap 11/12/19 07/02/20 acetaminophen 1,000 mg PO Q8H PRN #90 tab 01/18/20 07/02/20 ibuprofen 600 mg PO TID PRN #90 tab 01/18/20 07/02/20 pregabalin 100 mg capsule 100 mg PO TID #90 cap 05/29/20 07/02/20 methylcellulose (with sugar) packet PO 06/16/20 Previous Rx's Medication Instructions Recorded triamcinolone acetonide [Nasacort] 10.8 ml NS PRN PRN #1 spray 08/15/14 albuterol sulfate 90 mcg/actuation 2 puff IH QID #8.5 gm 11/12/19 aerosol inhaler lisinopril 10 mg tablet 10 mg PO DAILY #90 tab-cap 11/12/19 acetaminophen 1,000 mg PO Q8H PRN #90 tab 01/18/20 ibuprofen 600 mg PO TID PRN #90 tab 01/18/20 pregabalin 100 mg capsule 100 mg PO TID #90 cap 05/29/20 Allergies Allergy/AdvReac Type Severity Reaction Status Date / Time Penicillins Allergy Unknown Verified 06/24/20 11:00 Tegaderm acyrlic adhesive AdvReac rash Uncoded 06/24/20 11:00 General DEE: 4 Review of Systems Constitutional Constitutional: Reports as per HPI, Denies chills, Denies fever(s) and Denies weakness Musculoskeletal Musculoskeletal: Reports as per HPI and Denies tingling Integumentary/Breasts Skin/Breast: Reports as per HPI Neurologic Neurologic: Denies sensory deficit, Denies tingling and Denies weakness [facility] Medical History Calculus of gallbladder without cholecystitis without obstruction (09/22/15) Carpal tunnel syndrome on both sides (08/25/15) Chronic serous otitis media, right ear CSF otorrhea Diverticulitis of colon COLONOSCOPY-06/17/14; DR. DELUNA Dysfunction of right eustachian tube Essential hypertension (07/13/13) GERD (gastroesophageal reflux disease) Hearing loss Hyperlipidemia Left lumbar radiculopathy (03/07/16) Obesity (07/23/12) Perforated diverticulitis (05/06/14) Polymyalgia rheumatica (10/13/15) Prediabetes Primary osteoarthritis of right knee knee replaced Umbilical hernia Unilateral primary osteoarthritis, left knee Injected: 12/24/19; 12/28/2018 Surgical History Complete tear of left rotator cuff (05/28/17) S/P Repair Had to have 2 surgeries after an anchor was pulled H/O esophagogastroduodenoscopy (~05/25/18) History of cholecystectomy (10/08/15) History of exploratory laparotomy (07/26/14) History of umbilical hernia repair repair of wound dehisence Reports 4 surgeries in 2014 Required skin graft and now has mesh in place Right rotator cuff tear S/P repair: 01/18/2020 S/P colonoscopy (~05/25/18) Sigmoidoscopy 07/26/14; DR. 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 Brother Diabetes Son No problems noted. Daughter No problems noted. Daughter No problems noted. Daughter No problems noted. 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 Pets and animals: Yes Pets and animals: cat(s) Sexually active: No Do you think of yourself as: straight/heterosexual Current gender identity: male What is your relationship status?: How often do you talk on the phone with friends or family?: three or more times per week How often do you get together with friends or relatives?: three or more times per week How often do you attend holiness or anabaptism services?: decline to answer Do you belong to any clubs or organized social groups?: no Panel score (0-1 are the most socially isolated patients): 2 What type of physical activity do you participate in: none Marie/Yarsani: None Special marie needs: No Seatbelt use: always Helmet use: No Drive intox or ride w/intox driver's license reviewing officer: No Do you feel safe at home: Yes Do you feel safe in your relationship?: Yes Exam Const General: cooperative, healthy appearing, comfortable, no acute distress and well developed Nutritional Appearance: average body habitus and well nourished Orientation: alert and awake Resp Effort & Inspection: normal respiratory effort, able to speak in complete sentences and no respiratory distress Cardio Rate: regular rate Rhythm: regular rhythm Neuro General: patient alert and patient awake Cognition: normal cognition Speech: speech normal Gait: normal gait Motor: muscle tone normal throughout Extrem Hand/finger images: 1. Linear laceration with suture repair. #4 stitches are visualized. Wound is well approximated. No evidence of infection. No erythema, warmth or drainage. No tenderness with palpation. Wound appears to be healing well and stitches are able to be removed at this time Psych Appearance: grossly normal and well kempt Mental Status: mental status grossly normal Speech and Movement: speech and movement normal
[2020-07-02 08:34] VITALS: BP 157/97; PULSE 76; RESP 16; TEMP 36.3; O2SAT 96
== END 2020-07-02 08:42 | disposition home or self-care (01) ==
PROVIDERS: Emergency Provider Physician Assistant; PCP Nurse Practitioner
DX: S61.012D Laceration without foreign body of left thumb without damage to nail, subsequent encounter (principal); W26.0XXD Contact with knife, subsequent encounter; Z48.02 Encounter for removal of sutures

== ENCOUNTER 2020-07-03 11:13 | Outpatient (CLI) | payer MEDICARE, SELFPAY ==
[2020-07-03 12:52] LABS: HCT 45.8 % (40.0-50.0); HGB 15.3 g/dL (13.5-17.5); MCH 31.2 pg (27.0-33.0); MCHC 33.4 % (32.0-36.0); MCV 93.3 fL (80-95); MPV 10.1 fL (8.0-11.0); Platelet Count 160 10^3/uL (130-400); RBC 4.91 10^6/uL (4.36-5.78); RDW 11.7 % (11.8-14.1); RDW-SD 40.3 fL; WBC 7.53 10^3/uL (4.4-10.8)
== END 2020-07-03 11:14 | disposition home or self-care (01) ==
LOC: LOS 11:13
PROVIDERS: PCP Nurse Practitioner; Visit Provider Nurse Practitioner Family
DX: K21.9 Gastro-esophageal reflux disease without esophagitis (principal)
CPT/HCPCS: 36415; 85027

== ENCOUNTER → 2020-07-10 08:02 | Outpatient (BNVA) | payer MEDICARE, SELFPAY | PROVIDERS: PCP Nurse Practitioner; Referring Provider Nurse Practitioner; Visit Provider Physician Assistant | DX: M17.12 Unilateral primary osteoarthritis, left knee (principal) | CPT/HCPCS: 20610; J1040 ==

== ENCOUNTER → 2020-12-04 09:02 | Outpatient (BNVA) | payer MEDICARE, SELFPAY | PROVIDERS: PCP Nurse Practitioner; Visit Provider Nurse Practitioner Adult Health | DX: G60.9 Hereditary and idiopathic neuropathy, unspecified (principal); R73.03 Prediabetes; Z79.899 Other long term (current) drug therapy | CPT/HCPCS: 99213; 99214 ==

== ENCOUNTER → 2021-01-03 08:53 | Outpatient (BNVA) | payer MEDICARE, SELFPAY | PROVIDERS: PCP Nurse Practitioner; Referring Provider Nurse Practitioner | DX: M17.12 Unilateral primary osteoarthritis, left knee (principal) | CPT/HCPCS: 20610; J1040 ==

== ENCOUNTER → 2021-04-09 09:56 | Outpatient (BNVA) | payer MEDICARE, SELFPAY | PROVIDERS: PCP Nurse Practitioner; Visit Provider Nurse Practitioner Adult Health | DX: G60.9 Hereditary and idiopathic neuropathy, unspecified (principal) | CPT/HCPCS: 99213 ==

== ENCOUNTER → 2021-06-05 12:50 | Outpatient (BNVA) | payer MEDICARE, SELFPAY | PROVIDERS: PCP Nurse Practitioner; Referring Provider Nurse Practitioner | DX: Z01.818 Encounter for other preprocedural examination (principal); M17.12 Unilateral primary osteoarthritis, left knee ==

== ENCOUNTER 2021-06-11 03:42 | Outpatient (CLI) | payer MEDICARE, SELFPAY ==
[2021-06-11 10:26] LABS: HCT 47.6 % (40.0-50.0); HGB 16.2 g/dL (13.5-17.5); MCV 94.1 fL (80-95); MPV 10.2 fL (8.0-11.0); Platelet Count 152 10^3/uL (130-400); RBC 5.06 10^6/uL (4.36-5.78); RDW 11.7 % (11.8-14.1); RDW-SD 40.5 fL; WBC 6.73 10^3/uL (4.4-10.8)
[2021-06-11 12:10] LABS: Anion Gap 8.7 mmol/L (3-11); BUN 17 mg/dL (7-18); CO2 26.3 mmol/L (21.0-32.0); CREATININE 1.3 mg/dL (0.70-1.30); Calcium 9.3 mg/dL (8.5-10.1); Chloride 105 mmol/L (98-107); Estimated GFR 53.96 (mL/min/1.73m2); Glucose 110 mg/dL (74-106); Potassium 4.5 mmol/L (3.5-5.1); Sodium 140 mmol/L (136-145)
[2021-06-11 12:38] LABS: Source Nasal/Nares
[2021-06-11 16:06] LABS: COVID-19 PCR Negative (Negative)
== END 2021-06-11 03:43 | disposition home or self-care (01) ==
LOC: LBO 03:42
PROVIDERS: PCP Nurse Practitioner; Visit Provider Student in an Organized Health Care Education/Training Program
DX: M25.562 Pain in left knee (principal); M17.12 Unilateral primary osteoarthritis, left knee; Z20.822 Contact with and (suspected) exposure to COVID-19; Z01.818 Encounter for other preprocedural examination; Z01.812 Encounter for preprocedural laboratory examination
CPT/HCPCS: 36415; 80048; 85027; 87635; U0005

== ENCOUNTER 2021-06-12 07:20 | Day surgery (SDC) | payer MEDICARE, SELFPAY ==
--- NOTE | 2021-06-12 06:40 | W.PM.DSUDISC ---
Discharge Plan Disposition Patient Disposition: HOME Condition: Stable Discharge Details Reason For Visit: Left TKA Attending Provider: Tutu Rocha Primary Care Provider: Sarah Milan Home Meds and New Rx's Prescriptions: New celecoxib [Celebrex] 200 mg capsule 200 mg PO BID Qty: 60 0RF aspirin 81 mg tablet,delayed release (DR/EC) 81 mg PO BID Qty: 60 0RF acetaminophen 500 mg capsule 1,000 mg PO Q8H PRN PRNQty: 90 0RF gabapentin 300 mg capsule 300 mg PO QHS Qty: 14 0RF oxycodone 5 mg tablet 5 mg PO Q4H PRNQty: 18 0RF Continued lisinopril 10 mg tablet 10 mg PO DAILY Qty: 90 4RF pregabalin [Lyrica] 50 mg capsule 50 mg PO BID Qty: 180 3RF Rx Instructions: In addition to 100 mg noon and evening doses albuterol sulfate [Proventil HFA] 90 mcg/actuation HFA aerosol inhaler 2 puff IH QID Qty: 8.5 1RF multivitamin [Daily Multi-Vitamin] 1 EACH tablet 1 ea PO DAILY 0RF Fish Oil 500 MG capsule 500 mg PO DAILY 0RF omeprazole 20 MG tablet,delayed release (DR/EC) 20 mg PO DAILY 0RF clotrimazole-betamethasone 1-0.05 % cream 1 applic topical BID Qty: 45 0RF pregabalin [Lyrica] 100 mg capsule 100 mg PO TID Qty: 90 5RF triamcinolone acetonide [Nasacort] 10.8 ML aerosol,spray 10.8 ml NS PRN PRNQty: 1 1RF acetaminophen 500 mg tablet 1,000 mg PO Q8H PRN (Reason: pain) Qty: 90 3RF Discharge Instructions Additional Instructions: Total Knee Discharge Instructions Activity: The most important activity is to walk. You should try to take short walks a few times a day. It is important that when resting you work on keeping the knee straight. Avoid putting a pillow behind the knee as this will encourage flexion. Work on range of motion exercises as provided by Physical Therapy. If you have the langtaojin bike coming, this will be your primary tool for exercise after the knee replacement. You should use it and follow the directions for the knee. Utilize the other exercises sparingly based on your symptoms. - Start outpatient physical therapy within 2 weeks. - You should wear the WILL hose on both legs for 2 weeks. You may remove these at night. You may also use any compression sock in place of the WILL hose. - Utilize [employer] to review exercises, see videos on exercises and obtain basic information pertaining to your surgery and your recovery. Dressing: Remove the Amado wrap by 2 days after your surgery and put on the WILL stocking given to you from the hospital. Keep the surgical dressing (underneath the AMADO wrap) in place for at least one week. After the first week it may be removed and replaced with light gauze and tape or nothing. The wound and dressing may get wet after 3 days but avoid soaking the dressing or otherwise it will need to be changed. Many people prefer covering the dressing with cling wrap (saran wrap) to minimize it from getting soaked. If it gets wet, just pat dry. If it starts to peel off then it will need to be changed. Medications: - You should take Tylenol and anti-inflammatory Celebrex as your primary pain control medications. If the Celebrex is too expensive or not covered, please call the office for another alternative (Advil/Ibuprofen or Naproxen/Aleve) - You have been prescribed a stronger pain medication Oxycodone for breakthrough pain, take as needed as prescribed. -Continue with your previous stomach acid reduction agent omeprazole to help reduce stomach acid and reflux. - You have been prescribed Gabapentin to take at night for restlessness and nerve pain. - You will be taking Aspirin 81mg twice a day for DVT prevention unless instructed otherwise. - If you have constipation you should take Colace or Miralax (both [id number]). It takes most people 3-4 days to have a bowel movement. Follow-up: 2 weeks If you have any acute concerns or questions, please do not hesitate to contact the office at [phone]. You may contact Dr. Rocha with any questions after hours through the hospital at [phone] or on his cell phone at [phone]. Referrals: Tutu Rocha MD [ [facility]FF [facility]ICIAN] - Equipment/Supplies: Walker Activity:: Activity as Tolerated Remove Dressings/Wound Care:: Do Not Remove Shower/Bathe:: 72 hours Diet:: As Tolerated Discharge Orders Discharge Orders: Discharge Order (Routine); Ordered 06/12/21 Ordered By: Yessenia Torres DS: Diagnosis Discharge Diagnosis (1) Unilateral primary osteoarthritis, left knee:
[2021-06-12 07:57] VITALS: BP 128/87; PULSE 75; RESP 18; TEMP 36.6; O2SAT 96
[2021-06-12] MEDS: Acetaminophen 500 MG TAB 1000 MG PO (08:08)
[2021-06-12] MEDS: Celecoxib 200 MG CAP 400 MG PO (08:09)
[2021-06-12] MEDS: Gabapentin 300 MG CAP PO (08:09)
--- NOTE | 2021-06-12 08:22 | W.ANESPRE ---
General Info Date of Service Date Performed: 06/12/21 Height: 5 ft 6 in Weight: 108 kg Body Mass Index (BMI): 38.4 Surgical Procedure: Operation Date: 06/12/21 09:55 Proposed Procedure Side Surgeon p Knee Total Arthroplasty LT Left Tutu Rocha MD Meds Allergies and Home Medications Allergies Allergy/AdvReac Type Severity Reaction Status Date / Time Penicillins Allergy Unknown Verified 06/12/21 07:44 Tegaderm acyrlic adhesive AdvReac Intermediate rash Uncoded 06/12/21 07:44 Home Medication Medication Instructions Recorded multivitamin (Daily Multi-Vitamin) 1 ea PO DAILY 12/28/12 omega-3 fatty acids 500 mg capsule 500 mg PO DAILY 12/28/12 (Fish Oil) omeprazole 20 mg tablet,delayed 20 mg PO DAILY 12/28/12 release triamcinolone acetonide 55 mcg 10.8 ml NS PRN PRN #1 spray 08/15/14 nasal spray aerosol (Nasacort) albuterol sulfate 90 mcg/actuation 2 puff IH QID #8.5 gm 11/12/19 aerosol inhaler (Proventil HFA) acetaminophen 500 mg tablet 1,000 mg PO Q8H PRN #90 tab 01/18/20 clotrimazole-betamethasone 1 1 applic TOPICAL BID #45 g 08/22/20 %-0.05 % topical cream lisinopril 10 mg tablet 10 mg PO DAILY #90 tab-cap 11/14/20 pregabalin 100 mg capsule (Lyrica) 100 mg PO TID #90 cap 12/20/20 pregabalin 50 mg capsule (Lyrica) 50 mg PO BID #180 cap 04/09/21 acetaminophen 500 mg capsule 1,000 mg PO Q8H PRN PRN #90 cap 06/12/21 aspirin 81 mg tablet,delayed 81 mg PO BID #60 tab 06/12/21 release celecoxib 200 mg capsule (Celebrex) 200 mg PO BID #60 cap 06/12/21 gabapentin 300 mg capsule 300 mg PO QHS #14 cap 06/12/21 oxycodone 5 mg tablet 5 mg PO Q4H PRN #18 tab 06/12/21 Current Visit Medications: Current Medications Generic Name Dose Route Start Last Admin Trade Name Freq PRN Reason Stop Dose Admin Acetaminophen 1,000 mg 06/12/21 06:00 06/12/21 08:08 Acetaminophen 500 Mg Tab PO 06/12/21 16:00 1,000 mg PREOP ARSEN Administration Acetaminophen 1,000 mg 06/12/21 08:30 Acetaminophen 500 Mg Tab PO TID ARSEN Aspirin 81 mg 06/12/21 20:00 Aspirin E.C. 81 Mg Tabec PO BID ARSEN Celecoxib 400 mg 06/12/21 06:00 06/12/21 08:09 Celecoxib 200 Mg Cap PO 06/12/21 16:00 400 mg PREOP ARSEN Administration Celecoxib 200 mg 06/12/21 20:00 Celecoxib 200 Mg Cap PO BID ARSEN Docusate Sodium 100 mg 06/12/21 06:38 Docusate Sodium 100 Mg Cap PO BID PRN PRN Constipation Gabapentin 300 mg 06/12/21 06:00 06/12/21 08:09 Gabapentin 300 Mg Cap PO 06/12/21 16:00 300 mg PREOP ARSEN Administration Gabapentin 300 mg 06/12/21 22:00 Gabapentin 300 Mg Cap PO HS ARSEN Hydromorphone HCl 0.5 mg 06/12/21 06:38 Hydromorphone 2 Mg/Ml Vial IVP Q2H PRN PRN Tranexamic Acid 1,000 mg/ 60 mls @ 360 mls/hr 06/12/21 06:00 Sodium Chloride IVPB 06/12/21 16:00 PREOP ARSEN Tranexamic Acid 1,000 mg/ 60 mls @ 360 mls/hr 06/12/21 06:00 Sodium Chloride IVPB 06/12/21 16:00 DIRECTED ARSEN Ringer's Solution 1,000 mls @ 80 mls/hr 06/12/21 06:00 IV 06/14/21 23:59 INFUSION ARSEN Cefazolin Sodium/Dextrose 2 gm in 50 mls @ 100 mls/hr 06/12/21 06:00 Ancef Duplex IVPB 06/12/21 23:59 PREOP ARSEN Cefazolin Sodium/Dextrose 1 gm in 50 mls @ 100 mls/hr 06/12/21 16:00 Ancef Duplex IVPB 06/13/21 08:29 Q8H ARSEN IV Miscellaneous Supplies 1 each 06/12/21 06:00 Iv Access IV 06/14/21 23:59 DIRECTED ARSEN Ondansetron HCl 4 mg 06/12/21 06:38 Ondansetron 4 Mg/2 Ml Vial IVP Q6H PRN PRN Nausea Oxycodone HCl 0 mg 06/12/21 06:38 Oxycodone 5 Mg Tab PO Q3H PRN PRN Pain Pantoprazole Sodium 40 mg 06/13/21 07:30 Pantoprazole 40 Mg Tabcr PO DAILY@0730 ARSEN Sodium Chloride 0 ml 06/12/21 06:00 Normal Saline Flush 10 Ml Syr IV 06/14/21 23:59 PRN PRN Sodium Chloride 0 ml 06/12/21 06:00 Normal Saline 10 Ml Vial IJ 06/14/21 23:59 DIRECTED PRN Sterile Water 0 ml 06/12/21 06:00 Water,Injection,Sterile 10 Ml Vial IJ 06/14/21 23:59 DIRECTED PRN PFSH Active Problems Active Problems: Problem Status Onset Code GERD (gastroesophageal reflux disease) K21.9 Hyperlipidemia E78.5 Osteoarthrosis M19.90 Essential hypertension 07/13/13 I10 Obesity 07/23/12 E66.9 Sensorineural hearing loss of combined sites, bilateral H90.3 Idiopathic neuropathy G60.9 Prediabetes R73.03 Foot pain, bilateral M79.671, M79.672 Medical History Medical History BCC (basal cell carcinoma), eyelid Mohs scheduled [facility] 03/2021 Calculus of gallbladder without cholecystitis without obstruction (09/22/15) Carpal tunnel syndrome on both sides (08/25/15) Chronic otorrhea of right ear to Dr. Flynn- tube placed x2- Filiberto Franz at [facility] [place] [place]- repaired 09/2020 Chronic serous otitis media, right ear Colon polyp, hyperplastic (~06/2020) CSF otorrhea Diverticulitis of colon COLONOSCOPY-06/17/14; DR. DELUNA Dysfunction of right eustachian tube Left lumbar radiculopathy (03/07/16) Perforated diverticulitis (05/06/14) Polymyalgia rheumatica (10/13/15) Primary osteoarthritis of right knee knee replaced Right nasal polyps 05/2020- nasal mass to be removed [facility] [place] Dr. Adam Tubulovillous adenoma (~06/2020) Umbilical hernia Unilateral primary osteoarthritis, left knee Injected: 01/03/2021; 07/10/20; 12/24/19; 12/28/2018 Medical History Comments:: Dental: 2 missing teeth, top Metal: R Knee, R & L shoulders hard of hearing, left ear is better Surgical History Surgical History (Updated 06/12/21 @ 07:43 by Ana Batres RN) Complete tear of left rotator cuff (05/28/17) S/P Repair Had to have 2 surgeries after an anchor was pulled H/O esophagogastroduodenoscopy (~05/25/18) History of cholecystectomy (10/08/15) History of colonoscopy (~06/2020) History of exploratory laparotomy (07/26/14) History of umbilical hernia repair repair of wound dehisence Reports 4 surgeries in 2014 Required skin graft and now has mesh in place Right rotator cuff tear S/P repair: 01/18/2020 S/P colonoscopy (~05/25/18) S/P TKR (total knee replacement) Right in [address] Dr Rocha Sigmoidoscopy 07/26/14; DR. DELUNA Status post knee surgery right knee arthroscopy Status post tonsillectomy and adenoidectomy Status post total right knee replacement (05/19/19) May 2019 Status post trigger finger release Tobacco Smoking/Tobacco Use Status: Never Passive smoking exposure: Yes Second hand exposure: Yes Alcohol Alcohol Intake: current Alcohol intake frequency: a few times a month Alcohol type: beer Substance Use Substance use: Never Substance use type: does not use Vital Signs and Lab Results Vital Signs Most Recent Vital Signs in EMR: Most Recent Vital Signs Temp Pulse Resp BP Pulse Ox 36.6 C 75 18 128/87 96 06/12/21 07:57 06/12/21 07:57 06/12/21 07:57 06/12/21 07:57 06/12/21 07:57 Lab Results Blood Type / Crossmatch: No Data to Display Complete Blood Count: White Blood Count 6.73 10^3/uL (4.4-10.8) 06/11/21 10:18 06/11/21 Red Blood Count 5.06 10^6/uL (4.36-5.78) 06/11/21 10:18 06/11/21 Hemoglobin 16.2 g/dL (13.5-17.5) 06/11/21 10:18 06/11/21 Hematocrit 47.6 % (40.0-50.0) 06/11/21 10:18 06/11/21 Platelet Count 152 10^3/uL (130-400) 06/11/21 10:18 06/11/21 Complete Metabolic Panel: Sodium Level 140 mmol/L (136-145) 06/11/21 10:18 06/11/21 Potassium Level 4.5 mmol/L (3.5-5.1) 06/11/21 10:18 06/11/21 Chloride Level 105 mmol/L (98-107) 06/11/21 10:18 06/11/21 Carbon Dioxide Level 26.3 mmol/L (21.0-32.0) 06/11/21 10:18 06/11/21 Blood Urea Nitrogen 17 mg/dL (7-18) 06/11/21 10:18 06/11/21 Creatinine 1.3 mg/dL (0.70-1.30) 06/11/21 10:18 06/11/21 Estimated GFR/1.73 m2 53.96 (mL/min/1.73m2) 06/11/21 10:18 06/11/21 Calcium Level 9.3 mg/dL (8.5-10.1) 06/11/21 10:18 06/11/21 Glucose Level 110 mg/dL (74-106) H 06/11/21 10:18 06/11/21 Liver Function Panel: No Data to Display Coagulation Panel: No Data to Display Cardiac Panel: No Data to Display Arterial Blood Gas: No Data to Display Venous Blood Gas: No Data to Display Pancreas Panel: No Data to Display Thyroid Panel: No Data to Display Infectious Disease: Coronavirus (COVID-19)(PCR) Negative (Negative) 06/11/21 10:26 06/11/21 Coronavirus 2019 Source Nasal/Nares 06/11/21 10:26 06/11/21 Blood Cultures: No Data to Display Toxicology Panel: No Data to Display Imaging and Studies Imaging and Studies Study information below may be from another EMR and interpreted by another provider. Please see original notes in EMR for more complete details. Echocardiogram Summary: 1. Left ventricle: The cavity size was normal. Wall thickness was normal. Systolic function was normal. The estimated ejection fraction was 60-65%. Wall motion was normal; there were no regional wall motion abnormalities. Some parameters suggest diastolic dysfunction. 2. Mitral valve: There was mild regurgitation. 3. Right ventricle: The cavity size was mildly dilated. Wall thickness was normal. Systolic function was normal. 4. Right atrium: The atrium was dilated. 5. Pulmonary arteries: Systolic pressure could not be accurately determined, but appeared to be increased, at least 30 to 35 mmHg. Carotid Artery Summary:: IMPRESSION: Minimal calcific plaque. No evidence of significant internal carotid artery stenosis. Anesthesia Assessment and Plan Anesthesia History Personal History: No History of Anesthesia Complications Family History: No Family History of Anesthesia Complications Exercise Tolerance Exercise Tolerance: Metabolic Equivalents>4 Pertinent Negatives Pertinent Negatives: No Symptoms of GERD, No Major Cardiovascular Symptoms or Complaints, No Major Pulmonary Symptoms or Complaints and No History of CVA/TIA Cardiac & Pulmonary Exam Cardiac Exam: Normal S1/S2 Heart Sounds Pulmonary Exam: Clear Bilateral Breath Sounds Implantable Cardiac Device Does patient have a Pacemaker or an ICD?: No Airway Exam Known Difficult Airway: No Mallampati Class: 2 Mouth Opening: Normal (> 3cm) Thyromental Distance: Greater than 3 cm Neck Range of Motion: Full ROM Neck Circumference: Normal Teeth Condition: Normal Dentition ASA Classification ASA Score: ASA 3 Emergency Case?: No NPO Status NPO Status: NPO Clears >2 hours, Solids >8 hours Anesthesia Plan Resuscitation Status: Full Code Anesthesia Technique: Spinal Anesthesia Airway Planned: Natural Airway Pain Management: Surgeon and patient request nerve block Monitors Used: Standard Monitors
[2021-06-12] MEDS: Lactated Ringers 1,000 ML 80 ML IV (08:51)
[2021-06-12 08:52] VITALS: BP 149/94; PULSE 69; RESP 13; TEMP 36.6; O2SAT 97
[2021-06-12] MEDS: ceFAZolin 2 GM/50 ML BAG IVPB (09:23)
[2021-06-12 09:37] VITALS: BMI 38.4
[2021-06-12] MEDS: Ketorolac 30 MG/ML VIAL (09:57)
[2021-06-12] MEDS: Normal Saline 20 ML VIAL (09:57)
[2021-06-12] MEDS: Bupivacaine 0.25% Pres-Free 30 ML VIAL (09:57)
--- NOTE | 2021-06-12 10:54 | ROE_ITS ---
Date of service: 06/12/21 Time of Service: 10:54 Operative Note Operative Note DATE OF PROCEDURE: 06/12/21 PRE-OP DIAGNOSIS: Left Knee Osteoarthritis POST-OP DIAGNOSIS: same PROCEDURE: Left Total Knee Replacement SURGEON: Tutu Rocha BOWLING FLOOR MANAGER: Yessenia Torres Refer to Anesthesia Record ESTIMATED BLOOD LOSS: 100 PATHOLOGY: none sent TOURNIQUET TIME: 0 COMPLICATIONS: None Patient was transported to: PACU Patient's condition: stable Implants: 1. Depuy Attune Cementless Cruciate Retaining Femoral Component, Size 5 2. Depuy Attune Cementless Rotating Platform Tibial Component, Size 5 3. Depuy Attune 5x7 CR/RP Poly 4. Depuy Attune Patellar Component, Size 35 Indications: I have seen Chandrakant in clinic for symptoms of knee arthritis, confirmed with radiographic findings. Chandrakant has exhausted nonoperative methods and was having significant limitations in daily function and desired better function and less pain. I discussed the technical details of a knee replacement. I explained the risks of the procedure to include, but not limited to, bleeding, infection, p ain, stiffness, fracture, damage to nerves and vessels, damage to muscles and tendons, loosening, need for repeat procedure, blood clot and cardiopulmonary demise. Despite these risks, Chandrakant elected to proceed. Findings: There was significant signs of arthritis throughout the knee, mostly involving the medial femur where there was significant chondromalacia with exposed bone. Procedure Description: Chandrakant was greeted in the preoperative holding area where the correct side was identified and marked. The consent was reviewed with the patient and signed. The history and physical was updated. All questions were answered. Preoperative medications were administered: Acetaminophen 1000mg, Celebrex 4 00mg, and Gabapentin 300mg. An adductor canal block was then administered by the anesthesia team in the PACU. Chandrakant was taken back to the operating room. A spinal anesthestic was then administered. The patient was placed into the supine position on the operating room table. A nonsterile tourniquet was placed high onto the leg but only used for cementing. Posts were placed for positioning during the procedure. All bony prominences were well padded. Prophylactic antibiotics in the form of Cefazolin were administered. 1g of Tranxemic Acid was given intravenously within 30 minutes of incision. The left leg was then prepped with Chloraprep and draped in a standard fashion with impervious stockinette. A second prep with Chloraprep was performed prior to application of Iodine impregnated skin protection. A timeout to confirm correct identity, side and site, procedure, allergies, anesthesia, and medical concerns was performed. With the knee in some flexion, a midline incision was made overlying the knee. Full thickness skin flaps were raised once the extensor mechanism was encountered. These were raised medially and laterally. Any bleeding was controlled with electrocautery. Once the extensor mechanism was fully exposed, a medial parapatellar arthrotomy was performed in a flexed position. All bleeding from the arthrotomy and the geniculate arteries was coagulated. A medial subperiosteal peel was performed with electrocautery to the midcoronal plane. The fat pad was removed while keeping the patellar tendon protected. The anterior distal femur synovium was removed for later visualization. The ACL and PCL were resected and the anterior horn of the lateral meniscus was transected. The knee was then flexed with the patella everted. Large osteophytes from the tibia were removed. Large osteophytes from the femur were removed. There was a large full thickness defect over the distal end of the medial femur. Using a step drill, and based on preoperative templating, the femoral canal was entered. This was done with a step drill without any difficulty. The intramedullary distal femoral cut guide was inserted, set to a 5 degree valgus cut and 9mm cut thickness. The distal femoral cut guide was then held in position and pinned. With the soft tissues protected, the distal cut was performed. This was passed over a few times to ensure a planar cut. I then turned attention to the tibia. The extramedullary guide was placed onto the leg. The distal aspect was slid medial to adjust for position of center of ankle and stay in line with shaft of the tibia. Approximately 5 degrees of posterior slope was kept in the proximal cutting guide. The center of the guide was aligned with the PCL. The stylus was used to assess cut thickness. The medial side, most involved side, was set for a 5mm cut. This was then held in position and pinned into place with 2 additional pins and a cross pin for stability. The medial and lateral collateral ligaments were protected and the cut was performed. With this completed, it was assessed and noted to be of appropriate dimensions. The guide was removed. A spacer block was inserted and the knee was brought into extension. The 6mm spacer block provided full extension, without hyperextension and with stability of both the medial and lateral collateral ligaments was assessed. The pins from the femur and the tibia were then removed. The distal femur was then sized. The anterior stylus was placed onto the lateral ridge of the anterior femur. This indicated a size 5 femur. The external rotation of the guide was adjusted to 3 degrees to match the epicondylar axis, perpendicular to Coila?s line. The 4-in-1 cutting guide was the placed. The posterior medial femur cut was evaluated and appeared of good thickness. The spacer block was inserted underneath the cutting guide and stability was confirmed in 90 degrees of flexion. An iam wing was used to confirm appropriate position of the anterior cut to avoid notching. This cutting guide was ensured to be flush on the cut surface and then pinned into place with headed pins. While protecting the soft tissues, quad tendon, and collateral ligaments, the anterior and posterior cuts were performed with a saw. The central two pins were removed and the posterior and anterior chamfers were cut next. The notch-cutting guide was placed. This was pinned to lateralize the femoral component as much as possible while keeping it flush on the cut surface. This was then pinned into position. A reciprocating saw was used to make the notch cut. A rasp smoothed the cut surfaces. The medial and lateral menisci were removed. A trial femoral component was then inserted, impacted down to the cut surfaces, and the lug holes were drilled. A provisional trial tibial component was placed and the knee was brought through range of motion. The polyethylene was trialed until there was good flexion and extension with excellent stability to the medial and lateral collaterals. The patella was tracking without thumbs. A size 7mm polyethylene component provided the best range of motion and stability with less than 2mm gapping with medial and lateral stress and full extension without significant hyperextension. The tibial cut surface was fully exposed. The tibia was then sized as a 5. The tibia had been previously marked during trialing to correspond to the center of the tibial component to help with rotation. The trial was aligned to this ana paula, approximately rotated to the medial 1/3rd of the tibial tubercle. The trial was pinned into place. The tibia was prepared with a reamer and a keel punch and lug holes. The knee was then brought into extension and the patella was measured as 25mm. Using the patellar clamp and cut guide, this was resected to a flat surface with at least 13mm of thickness remaining. The size 35 patella fit the best. This was oriented and then clamped into position. The lugs were drilled. The trial components were removed. The final components were opened on the back table. The periosteal and capsular tissues, especially posteriorly, around the knee were then systematically injected with a periarticular cocktail consisting of 50cc 0.25% Marcaine, 30mg Ketorolac, 20cc of Exparal and 50cc of injectable saline. The knee was thoroughly irrigated with a pulse lavage and dried. Irrisept was also used to irrigate the tissues. On the back table, with the implants opened, the cement was mixed. One batch of high viscosity cement was prepared with vacuum assistance. After the cement was ready a small amount was placed on the cut surface of the patella and the patellar button was clamped into position and held. While the cement was hardening, the cementless knee components were placed. Starting with the tibial component, the tibia was subluxed anteriorly and the lug holes of the component were lined up. The tibia was then impacted with an impactor and mallet until the tibial component was in contact with the tibia. The final polyethylene component was inserted. Then, the femoral component was inserted. The lug holes were aligned and the component was impacted into position. The knee was irrigated with Irrisept chlorhexadine solution. This was allowed to sit in the knee for 3 minutes. After the cement had finally cured, approximately 15min, the clamp was removed from the patella and the knee was taken through range of motion. The patella was tracking with a no-thumbs technique. The capsule was then reapproximated with a No. 1 Vicryl at multiple locations. The capsule was finally closed with a No. 2 Stratafix, barbed suture. The second dosing of 1g TXA was started. Deep tissues were then reapproximated with 0 Vicryl and 2-0 Vicryl. The skin was closed with a running 3-0 Monocryl in a subcuticular fashion. This was reinforced with skin glue. A Mepilex silver dressing was applied along with a [id number] GWENDOLYN wrap. A CryoCuff was applied. Ray was transferred to the hospital bed without difficulty an suffering no apparent complication. Ray has a good prognosis. Physical therapy will start today and without restrictions, weight-bearing as tolerated. Aspirin 81mg BID will be used for DVT prophylaxis.
[2021-06-12 11:00] VITALS: BP 107/96; PULSE 62; RESP 16; TEMP 35.7; O2SAT 96
[2021-06-12 11:35] VITALS: BP 119/90; PULSE 58; RESP 16; TEMP 36.2; O2SAT 97
--- NOTE | 2021-06-12 11:54 | W.ANESPOSTOP ---
Postoperative Evaluation Date, Time and Location Date Performed: 06/12/21 Time Performed: 11:55 Patient Location: Day Surgery Unit Vital Signs Most Recent Imported Vital Signs: Most Recent Vital Signs Temp Pulse Resp BP Pulse Ox 36.2 C L 58 L 16 119/90 97 06/12/21 11:35 06/12/21 11:35 06/12/21 11:35 06/12/21 11:35 06/12/21 11:35 Pain Score Most Recent Pain Score: Most Recent Pain Score Pain Level 0 06/12/21 11:35 Assessment Mental Status: Awake (Alert & Oriented to Patient Baseline) Airway and Respiratory Function: Patent airway with normal (patient baseline) respiratory exam Cardiovascular Function: Hemodynamically Stable Hydration Status: Adequately Hydrated Nausea & Vomiting: No Nausea or Vomiting Pain: Pt. Denies Any Pain Peripheral Nerve Block: Regional nerve block not resolved at time of post operative discharge
[2021-06-12 12:00] VITALS: BP 142/104; PULSE 62; RESP 16; TEMP 36.1; O2SAT 98
--- NOTE | 2021-06-12 12:02 | W.ANESNERVE ---
Nerve Block Single Injection Procedure Date and Time Date Performed: 06/12/21 Procedure Start: 08:52 Location Where Procedure Performed Procedure Location: Day Surgery Unit Reason Performed: Postoperative Analgesia Requesting Provider: Tutu Rocha Timeout Performed Timeout Performed: Yes Monitoring Used ECG, Blood Pressure and SpO2 Sterility Sterility: Hand Hygiene, Surgical Cap, Surgical Mask, Sterile Gloves and Chlorhexidine Sedation Given During Procedure Sedation Given (Indicate Dose Given): No Sedation given Patient Mental Status Patient Mental Status: Awake Nerve Block 1st Nerve Block: Laterality: Left Block Type: Adductor Canal Needle / Catheter Used: 100mm SonoPlex II Local Anesthetic Bolus (Indicate Dose Given): Lidocaine used for local infiltration of skin, Injected in 3-5ml increments after negative blood aspiration and Bupivacaine 0.25% Dose:: 15 ml Additives (Indicate Dose Given): None Ultrasound: Sterile probe cover and gel used Ultrasound Image Saved?: Yes Nerve Stimulator: Not Used Paresthesia: None Post Procedure Pain score (0-10): 0 Procedure Tolerated: No Complications and Patient tolerated well Procedure Outcome: Successful Performed By: Merrick Aviles
[2021-06-12] MEDS: oxyCODONE 5 MG TAB PO (12:11)
[2021-06-12 12:35] VITALS: BP 158/94; PULSE 66; RESP 16; TEMP 36.2; O2SAT 97
--- NOTE | 2021-06-12 13:11 | IN_ITS ---
Date of service: 06/12/21 Time of Service: 13:11 PT Notes Visit Reasons: Left TKA Physical Therapy Day Surgery Initial Evaluation Date: 06/12/2021 Referring Doctor: NANCIE Higginbotham PT Orders: PT CONSULT: Status post Ortho surgery Precautions: WBAT on left LE with AD. Patient Profile/Admitting Diagnosis: Javi is a 76-year-old male with primary unilateral osteoarthritis of left knee and is status post left total knee arthroplasty on postoperative day 0. PMHX: Medical History? BCC (basal cell carcinoma), eyelid Mohs [place] [facility] [place] Calculus of gallbladder without cholecystitis without obstruction (09/22/15) Carpal tunnel syndrome on both sides (08/25/15) Chronic otorrhea of right ear to Dr. Flynn- tube placed x2- Filiberto [place] [facility] [place]2020 Chronic serous otitis media, right ear Colon polyp, hyperplastic (~06/2020) CSF otorrhea Diverticulitis of colon COLONOSCOPY-06/17/14; DR. DELUNA Dysfunction of right eustachian tube Left lumbar radiculopathy (03/07/16) Perforated diverticulitis (05/06/14) Polymyalgia rheumatica (10/13/15) Primary osteoarthritis of right knee knee replacedRight nasal polyps 05/2020- nasal mass to be removed [facility] Adam Tubulovillous adenoma (~06/2020) Umbilical hernia Unilateral primary osteoarthritis, left knee Injected: 01/03/2021; 07/10/20; 12/24/19; 12/28/2018 Surgical History? Complete tear of left rotator cuff (05/28/17) S/P Repair Had to have 2 surgeries after an anchor was pulled H/O esophagogastroduodenoscopy (~05/25/18) History of cholecystectomy (10/08/15) History of colonoscopy (~06/2020) History of exploratory laparotomy (07/26/14) History of umbilical hernia repair repair of wound dehisence Reports 4 surgeries in 2014 Required skin graft and now has mesh in place Right rotator cuff tear S/P repair: 01/18/2020S/P colonoscopy (~05/25/18) Sigmoidoscopy 07/26/14; DR. DELUNA Status post knee surgery right knee arthroscopy Status post tonsillectomy and adenoidectomy Status post total right knee replacement (05/19/19) May 2019 Status post trigger finger release Social History/Home Situation: Patient lives with in a private home with 2 steps to enter with rails on both sides. Avid ice fishing. Equipment Owned/DME: FWW, SPC, TATIANNA Subjective: Agreeable to PT consult. States that he has fallen once over the past 12 months while ice fishing. Reports 1?2/10 pain on the left knee and thigh during ambulation that subsided with rest. Objective: General Observation: Supine in bed. Amado wraps to left LE. Cryocuff to left knee. TEDS on left leg. Mental Status: Alert and oriented x4 Pain: 1?2/10 on the left knee and thigh ROM: Right Lower Extremity: Hip flexion WFL. Hip abduction WFL. Knee flexion WFL. Ankle dorsiflexion WFL. Ankle plantarflexion WFL. Left Lower Extremity: Hip flexion WFL. Hip abduction WFL. Knee flexion 10 degrees to 100 degrees. Knee extension -10 degrees. Ankle dorsiflexion WFL. Ankle plantarflexion WFL. Strength: Right Lower Extremity: Hip flexors 5/5. Hip abductors 5/5. Knee flexors 5/5. Knee extensors 5/5. Ankle dorsiflexors 5/5. Ankle plantarflexors 5/5. Left Lower Extremity:Hip flexors 4/5. Hip abductors 4/5. Knee flexors 3-/5. Knee extensors 3-/5. Ankle dorsiflexors 5/5. Ankle plantarflexors 5/5. Sensation: Intact as to pain and light pressure in bilateral lower extremities Bed Mobility/Transfers: Supine to sit independent Sit to stand standby assist Stand to sit standby assist Bed to chair standby assist Gait: 150 feet using front wheeled walker with step through gait pattern with wheelchair follow all MANAGER ORDER Debbie for safety. Today he denies, chest pain, and lightheadedness throughout session. Balance: Static Sitting: Normal Dynamic Sitting: Normal Static Standing: Fair Dynamic Standing: Fair Special Tests: Mobility Limitations [facility] Basic Mobility Inpatient Short Form: Raw Score: 24 CMS Score: 0% deficit Informed Consent/Education: Patient instructed in purpose of PT consult. Education and training on initial set of exercises that can be done at home have been completed with patient with reference to the downloadable [employer] bright. Assessment: Ray requires the use of a front wheeled walker for all mobility performance to maximize independence and reduce fall risk. Patient presents with clinical signs and symptoms consistent with current/admitting diagnoses that have resulted to mobility limitations, gait instability, generalized weakness, and impairment of motor control as demonstrated by the following impairment level findings: 1. Decreased strength to left knee major muscle groups 2. Impaired standing balance 3. Limitation of joint range of motion in left knee Impairments are contributing to the following functional limitations: 1. Inability to safely ambulate without assistive device 2. Increase completion time for mobility ADL performance 3. Increased fall risk Patient is assessed as a 19953 moderatecomplexity based on the following: History: 76-year-old male with impairment level findings, functional limitations, and past medical history as indicated above Examination: Demonstrable impairment in strength, balance, and mobility level with underlying impairments and functional limitations as documented above Presentation: Evolving Decision Makin moderate complexity Goals: N/A. PT evaluation and 1-2 treatment sessions only for functional mobility training using recommended AD and for HEP instruction. Plan of Care/Treatment Plan: N/A. PT evaluation and 1-2 treatment session only for functional mobility training using recommended AD and for HEP instruction. DISCHARGE RECOMMENDATIONS: [] Home with no services [] [] Home with services [specify] [X] Home with outpatient PT. Home when medically cleared by orthopedic surgeon. Patient will benefit from outpatient PT services in order to facilitate return to independent community ambulation and all ADL performance without an assistive device. [] SNF for continued rehabilitation [] [] [facility] [] [] SNF versus LTC based on ability to participate and progress [] TREATMENT CODE/TIME: 22927 x 20 minutes, 73079 x 19 minutes beginning at 13:11 PM. Thank you for the opportunity to participate in the care of this patient. Charmaine Brandt PT, DPT, CLT [facility] [place], [place]
== END 2021-06-12 15:05 | disposition home or self-care (01) ==
LOC: SUR 07:20
PROVIDERS: PCP Nurse Practitioner; Visit Provider Student in an Organized Health Care Education/Training Program
PROC: (CPT 27447; principal; 2021-06-12 09:45)
DX: M17.12 Unilateral primary osteoarthritis, left knee (principal); K21.9 Gastro-esophageal reflux disease without esophagitis; E78.5 Hyperlipidemia, unspecified; I10 Essential (primary) hypertension; R73.03 Prediabetes
CPT/HCPCS: 27447; 76942; 97162; 97530; J0690; J1100; J1885; J2370; J2405

== ENCOUNTER 2021-06-25 10:30 | Outpatient (CLI) | payer MEDICARE, SELFPAY | END 2021-06-25 10:31 | disposition home or self-care (01) | PROVIDERS: PCP Nurse Practitioner; Referring Provider Nurse Practitioner; Visit Provider Student in an Organized Health Care Education/Training Program | DX: Z96.652 Presence of left artificial knee joint (principal); Z47.1 Aftercare following joint replacement surgery ==

== ENCOUNTER 2021-07-17 17:13 | Outpatient (REF) | payer MEDICARE, SELFPAY ==
[2021-07-19 11:01] LABS: COVID-19 RT-PCR UVMMC Result Negative (Negative)
== END 2021-07-17 17:14 | disposition home or self-care (01) ==
LOC: LBN 17:13
PROVIDERS: PCP Nurse Practitioner; Visit Provider Nurse Practitioner
DX: Z20.822 Contact with and (suspected) exposure to COVID-19 (principal)
CPT/HCPCS: U0003; U0005

== ENCOUNTER 2021-07-23 11:25 | Outpatient (CLI) | payer MEDICARE, SELFPAY ==
--- NOTE | 2021-07-23 10:45 | DI.RAD_ITS ---
Exam(s) XR KNEE LT 1V XR STANDING ALIGNMENT EXAM: XR STANDING ALIGNMENT CLINICAL HISTORY: L TKR. TECHNIQUE: 2D digital imaging was performed. Standing AP views were performed from the pelvis throu gh the ankles. COMPARISON: CR XR KNEE RT 1V from 06/04/2019 CR XR STANDING ALIGNMENT from 06/04/2019 FINDINGS: BONES: No acute fracture is present. No bony destructive lesion is seen. Bilateral total knee prostheses. Left knee prosthesis has been placed since the prior exam. Satisfa ctory alignment. Anterior soft tissue swelling and joint effusion. Right lower leg edema. The ankle and hip joints are unremarkable. IMPRESSION: Status post left knee prosthesis. No significant leg length discrepancy. DATA REPOSITORY: RADIATION DOSE DELIVERED:
== END 2021-07-23 11:26 | disposition home or self-care (01) ==
LOC: DIORS 11:25
PROVIDERS: PCP Nurse Practitioner; Referring Provider Nurse Practitioner; Visit Provider Student in an Organized Health Care Education/Training Program
DX: Z96.652 Presence of left artificial knee joint (principal)
CPT/HCPCS: 73560; 77073

== ENCOUNTER → 2021-07-25 09:22 | Outpatient (BNVA) | payer MEDICARE, SELFPAY | PROVIDERS: PCP Nurse Practitioner; Visit Provider Nurse Practitioner Adult Health | DX: G60.9 Hereditary and idiopathic neuropathy, unspecified (principal); R73.03 Prediabetes | CPT/HCPCS: 99212; 99213; 99202 ==

== ENCOUNTER → 2021-08-29 09:23 | Outpatient (BNVA) | payer MEDICARE, SELFPAY | PROVIDERS: PCP Nurse Practitioner; Referring Provider Nurse Practitioner; Visit Provider Nurse Practitioner Adult Health | DX: G60.9 Hereditary and idiopathic neuropathy, unspecified (principal); R73.03 Prediabetes | CPT/HCPCS: 99213 ==

== ENCOUNTER → 2021-09-03 09:40 | Outpatient (BNVA) | payer MEDICARE, SELFPAY | PROVIDERS: PCP Nurse Practitioner; Referring Provider Nurse Practitioner; Visit Provider Student in an Organized Health Care Education/Training Program | DX: Z47.1 Aftercare following joint replacement surgery (principal); Z96.652 Presence of left artificial knee joint ==

== ENCOUNTER → 2021-09-27 14:53 | Outpatient (BNVA) | payer MEDICARE, SELFPAY | PROVIDERS: PCP Nurse Practitioner; Referring Provider Nurse Practitioner; Visit Provider Nurse Practitioner Adult Health | DX: G60.9 Hereditary and idiopathic neuropathy, unspecified (principal); R73.03 Prediabetes | CPT/HCPCS: 99213 ==

== ENCOUNTER 2021-11-06 14:19 | Outpatient (CLI) | payer MEDICARE, SELFPAY ==
--- NOTE | 2021-11-06 14:00 | DI.RAD_ITS ---
Exam(s) XR KNEE LT 3V AP,LAT,ABELINO EXAM: XR KNEE LT 3V AP,LAT,ABELINO CLINICAL HISTORY: LEFT KNEE PAIN TECHNIQUE: COMPARISON: CR XR KNEE LT 1V from 07/23/2021 FINDINGS: Three views were obtained. There is a total knee joint replacement in position. The components appe ar well seated. No other significant bony abnormality seen. IMPRESSION: RADIATION DOSE DELIVERED: Total DLP
== END 2021-11-06 14:20 | disposition home or self-care (01) ==
LOC: DIORS 14:20
PROVIDERS: PCP Nurse Practitioner; Referring Provider Nurse Practitioner; Visit Provider Physician Assistant
DX: S80.02XA Contusion of left knee, initial encounter (principal); X58.XXXA Exposure to other specified factors, initial encounter; Z96.652 Presence of left artificial knee joint
CPT/HCPCS: 73562; 99213

== ENCOUNTER → 2021-11-14 09:55 | Outpatient (BNVA) | payer MEDICARE, SELFPAY | PROVIDERS: PCP Nurse Practitioner; Referring Provider Nurse Practitioner; Visit Provider Nurse Practitioner Adult Health | DX: R73.03 Prediabetes (principal); G60.9 Hereditary and idiopathic neuropathy, unspecified | CPT/HCPCS: 99213; 99214 ==

== ENCOUNTER 2021-11-23 10:15 | Outpatient (CLI) | payer MEDICARE, SELFPAY ==
--- NOTE | 2021-11-23 10:15 | RT.EKG_ITS ---
APPROVED REPORT Exam: Resting ECG Reason for Exam: Chest Discomfort Patient Location: O HR:74 bpm ECG Measurements Heart Rate 74 AXIS CO 169 P 17 QRSd 90 QRS 28 QT 388 T 57 QTc 431 Conclusion Sinus rhythm...normal P axis, V-rate 50- 99 Low voltage, extremity and precordial leads...extremity<0.5mV, precordial<1.0mV
== END 2021-11-23 10:16 | disposition home or self-care (01) ==
LOC: DI.CM 10:17
PROVIDERS: PCP Nurse Practitioner; Visit Provider Nurse Practitioner Family
DX: R07.89 Other chest pain (principal)
CPT/HCPCS: 93010

== ENCOUNTER → 2021-12-04 00:48 | Outpatient (CLI) | payer MEDICARE, SELFPAY ==
--- NOTE | 2021-12-04 05:45 | ETT_ITS ---
APPROVED REPORT Exam: Exercise Treadmill Patient Location: Out-Patient Room/Bed: Stress Nurse: Ana Salinas RN Ordering Provider:RAIMUNDO ROBINSON NELDA, Contact Number: [phone] BMI: 36.80 Baseline Rhythm: Sinus Rhythm Indications: CHEST DISCOMFORT/TIGHTNESS Medical History Medical History: HLD, Prediabetes, Obesity, HTN, Depression, Asthma Cardiac Medications: Nitro SL, Lisinopril, Albuterol , Allergies: Penicillins, Tegaderm adhesive Cardiac Risk Factors: HTN, Hyperlipidemia, DM, Asthma, Obesity, FHX of CAD Previous Cardiac Procedures: None Pretest Chest Pain Characteristics: None Exercise History: Physically active Physical Disabilities: Left knee replacement Lung Sounds: Clear to auscultation Heart Sounds: Regular Stress Test Details Test: Exercise stress testing was performed using a Venkatesh protocol. Rest Stress HR Resting HR Supine: 65 bpm Max Heart Rate (APMHR): 146 bpm Resting HR Standin bpm Target HR (85% APMHR): 124 bpm Max HR Achieved: 129 bpm % of APMHR: 88 Recovery HR: 87 bpm HR response to stress: Normal HR response to stress BP Resting BP Supine: 144/92 mmHg Resting BP Standin/86 mmHg Max BP: 202/98 mmHg Recovery BP: 160/88 mmHg BP response to stress: Normal blood pressure response to stress. Comment: HTN at baseline. ECG Resting ECG: Sinus Rhythm, , Clear, Sinus Rhythm, Sinus Bradycardia, Sinus Tachycardia Ectopy: None Stress ECG: Sinus Tachycardia ST Change: No significant ST segment changes noted Arrhythmia: frequent PACs, PVCs Recovery ECG: Sinus Rhythm Recovery ST Change: Horizontal ST depression Lead(s): inferior leads Recovery ST Deviation: 0.5 mm Recovery Arrhythmia: PVCs, PVC couplet Clinical Reason for Termination: Fatigue, Dyspnea Stress Symptoms: General Fatigue, Dyspnea Exercise duration: 6 min46 sec Highest Stage Reached: Stage 3: 3.4 mph at 14% grade. Exercise capacity: 8.26 METs Porter Treadmill Score: 4.5 Rate Pressure Product: 86250 Stress ECG Conclusion 1. The resting electrocardiogram showed poor R wave progression 2. Patient exercised on the Venkatesh protocol and completed a workload of 8.26 METS 3. Normal heart rate and blood pressure response to exercise. Patient achieved 88% of predicted hear t rate for age 4. Electrocardiographic portion of the test was negative for myocardial ischemia 5. PVCs were seen Porter Treadmill Score is 4.5 which is Moderate risk. Stress Test Summary STAGE Time (mins) Speed (mph) Grade (%) HR BP SpO2 SYMPTOMS METS Supine 65 144/92 Standing 67 140/86 95% 1 3 1.7 10 103 148/82 4.5 2 6 2.5 12 119 90% moderate SOB 7 1 min recovery 105 202/98 88% 3 min recovery 90 200/90 95% SOB resolved 6 min recovery 87 160/88
== END ==
PROVIDERS: PCP Nurse Practitioner; Visit Provider Nurse Practitioner Family
DX: R07.89 Other chest pain (principal)
CPT/HCPCS: 93016; 93018; 93017

== ENCOUNTER → 2022-01-09 10:04 | Outpatient (BNVA) | payer MEDICARE, SELFPAY | PROVIDERS: PCP Nurse Practitioner; Referring Provider Nurse Practitioner; Visit Provider Nurse Practitioner Adult Health | DX: G60.9 Hereditary and idiopathic neuropathy, unspecified (principal); R73.03 Prediabetes | CPT/HCPCS: 99212; 99213 ==

== ENCOUNTER 2022-01-16 04:14 | Outpatient (CLI) | payer MEDICARE, SELFPAY ==
[2022-01-16 12:52] LABS: ALT 36 U/L (16-63); AST 31 U/L (15-37); Alkaline Phosphatase 68 U/L (46-116); BUN 17 mg/dL (7-18); Bilirubin, Total 0.8 mg/dL (0.2-1.0); CREATININE 1.4 mg/dL (0.70-1.30); Calcium 9.2 mg/dL (8.5-10.1); Calculated LDL 22 mg/dL (<100); Chloride 105 mmol/L (98-107); Cholesterol 110 mg/dL (<200); Estimated GFR 52.74 (mL/min/1.73m2); Glucose 87 mg/dL (74-106); HDL Cholesterol 33 mg/dL (40-60); Potassium 4.5 mmol/L (3.5-5.1); Sodium 140 mmol/L (136-145); Total Protein 7.2 g/dL (6.4-8.2); Triglyceride 278 mg/dL (<150)
== END 2022-01-16 04:15 | disposition home or self-care (01) ==
LOC: LBO 04:15
PROVIDERS: PCP Nurse Practitioner; Visit Provider Nurse Practitioner Family
DX: R07.89 Other chest pain (principal); E78.5 Hyperlipidemia, unspecified
CPT/HCPCS: 36415; 80053; 80061

== ENCOUNTER 2022-01-19 20:19 | Emergency (ER) | payer MEDICARE, SELFPAY ==
[2022-01-19] VITALS (55 sets, daily range): BP systolic 169; BP diastolic 87; PULSE 72–75; RESP 11–32; TEMP 36.1; O2SAT 97
--- NOTE | 2022-01-19 20:15 | RT.EKG_ITS ---
APPROVED REPORT Exam: Resting ECG Reason for Exam: chest pain Patient Location: E HR:73 bpm ECG Measurements Heart Rate 73 AXIS CA 196 P 48 QRSd 95 QRS 25 QT 379 T 47 QTc 418 Conclusion Sinus rhythm...normal P axis, V-rate 60- 99 Low voltage, extremity and precordial leads...extremity<0.5mV, precordial<1.0mV
[2022-01-19 20:37] LABS: Source Nasal/Nares
[2022-01-19 20:41] LABS: Abs Immature Grans 0.02 10^3/uL (0.0-0.06); Absolute Basophil Count 0.05 10^3/uL (0.0-0.2); Absolute Eosinophil Count 0.63 10^3/uL (0.0-0.7); Absolute Lymphocyte Count 2.18 10^3/uL (1.2-3.4); Absolute Monocyte Count 1.05 10^3/uL (0.1-0.8); Absolute Neutrophil Count 5.52 10^3/uL (1.2-6.7); Basophils % 0.5; Eosinophils % 6.7; HCT 44.8 % (40.0-50.0); HGB 15.1 g/dL (13.5-17.5); Immature Grans % 0.2; Lymphocytes % 23.1; MCHC 33.7 % (32.0-36.0); MCV 95 fL (80-95); MPV 10.2 fL (8.0-11.0); Monocytes % 11.1; Neutrophils % 58.4; Platelet Count 158 10^3/uL (130-400); RBC 4.72 10^6/uL (4.36-5.78); RDW 11.9 % (11.8-14.1); RDW-SD 41.9 fL; WBC 9.45 10^3/uL (4.4-10.8)
[2022-01-19] MEDS: Mylanta Suspension 30 ML CUP PO (20:47)
--- NOTE | 2022-01-19 20:47 | ED.GENADUL_ITS ---
Discharge Plan Disposition Patient Disposition: HOME Condition: Stable Discharge Details Clinical Impression: Epigastric pain Primary Care Provider: Lynn Mercado ED Provider: Gustavo Vasquez Home Meds and New Rx's Prescriptions: Continued lisinopril 10 mg tablet 10 mg PO DAILY Qty: 90 4RF albuterol sulfate [Proventil HFA] 90 mcg/actuation HFA aerosol inhaler 2 puff IH QID Qty: 8.5 1RF nitroglycerin 0.4 mg tablet, sublingual 0.4 mg sublingual Q5M PRN (Reason: chest pain) Qty: 5 0RF Rx Instructions: do not exceed 3 doses per episode atorvastatin 20 mg tablet 20 mg PO QHS Qty: 90 3RF multivitamin [Daily Multi-Vitamin] 1 EACH tablet 1 ea PO DAILY Fish Oil 500 MG capsule 500 mg PO DAILY omeprazole 20 MG tablet,delayed release (DR/EC) 20 mg PO DAILY pregabalin [Lyrica] 100 mg capsule See Rx Instructions PO QHS Qty: 90 3RF Rx Instructions: 50 mg am 100 mg pm orally ; pregabalin [Lyrica] 50 mg capsule 50 mg PO DAILY Qty: 90 3RF Rx Instructions: 50 mg am in addition to 100 mg pm dose acetaminophen 500 mg capsule 1,000 mg PO Q8H PRN PRNQty: 90 0RF Discharge Instructions Instructions: Epigastric Pain (ED) Additional Instructions: your blood work and cat scan did not show concerning findings you can take mylanta or tums as needed, follow dosing instructions on packaging if you feel more ill, have severe worsening pain or persistent vomiting return to the emergency department follow up with your primary care provider as scheduled within a week Medical Decision Making 76 yo male with hx of hld, gerd, htn, who comes in with cc of epigastric pain since 0300 this morning. He states it will randomly increase in severity and did so tonight so came here. He states the pain has subsided since arriving and is a mild fullness in the epigastric area. Denies any radiation of pain, diaphoresis, dyspnea, increase in symptoms with exertion. He can't think of anything that makes it better or worse. He started clindamycin for a dental infection via his dentist , is not sure he has had this medicine before. He has no dental abscess or submandibular swelling on exam. He appears well, caox4 speaking clearly and in full sentences. He has clear lungs, no murmurs, soft abodmen but is tender in the epigastric area without guarding no other tenderness elsewhere.. Unclear etiology for his symptoms though I suspect gastritis. Given his age and risk factors will obtain ecg and troponin. No tearing back pain to suggest dissection but will obtain cta to evaluate for pe vs ptx though less likely given no pleuritic pain and also ct abdomen to evaluate for possible cholecystitis and obtain a lipase. labs and imaging show no acute findings, has lung nodules which he is already aware of and will f/u with his pcp for. He states pain resolved with mylanta and no longer has any pain or discomfort and feels well. Given over 3 hours of symptoms do not feel delta troponin indicated. He is stable for d/c and will f/u with his pcp and states he already has an appointment this week, return precautions given Differential Diagnosis Differential Diagnosis: gastritis, pancreatitis, cholecystitis Medical Records Medical records reviewed: Yes I reviewed the patient's medical records. Imaging Data Radiologic Study: Attestation: I personally reviewed and interpreted this imaging study as follows: Imaging: CT Scan Radiologist's impression: no acute findings Lab Data Lab results reviewed: Yes I reviewed the patient's lab results. ECG Data Attestation: I personally reviewed and interpreted this ECG (s) as follows: Prior ECG tracings: available for review Interpretation: sinus rhythm, rate of 73, no acute ischemic findings HPI General Mode of arrival: ambulatory . Date/Time Provider Initiated Documentation: 01/19/22 20:21 . Limitations to Documentation: no limitations . Information obtained by: patient . History of Present Illness 76 year old M presents to the emergency department with the chief complaint of epigastric pain, described as moderate, Quality is described as aching, and is localized to the abdomen (epigastric). Patient reports no radiation. No relieving factors improve symptom(s), No exacerbating factors reported . Patient notes denies cough and fever/chills. Patient did receive the following treatments prior to arrival, none Related Data Home Medications Medication Instructions Recorded Confirmed multivitamin (Daily Multi-Vitamin 1 ea PO DAILY 12/28/12 01/19/22 tablet) omega-3 fatty acids 500 mg capsule 500 mg PO DAILY 12/28/12 01/19/22 (Fish Oil) omeprazole 20 mg tablet,delayed 20 mg PO DAILY 12/28/12 01/19/22 release lisinopril 10 mg tablet 10 mg PO DAILY #90 tab-caps 11/14/20 01/19/22 acetaminophen 500 mg capsule 1,000 mg PO Q8H PRN PRN #90 caps 06/12/21 01/19/22 albuterol sulfate 90 mcg/actuation 2 puff inhalation QID #8.5 grams 09/14/21 01/19/22 aerosol inhaler (Proventil HFA) nitroglycerin 0.4 mg sublingual 0.4 mg sublingual Q5M PRN chest 11/23/21 01/19/22 tablet pain #5 tabs pregabalin 100 mg capsule (Lyrica) See Rx Instructions PO QHS #90 caps 11/26/21 01/19/22 pregabalin 50 mg capsule (Lyrica) 50 mg PO DAILY #90 caps 11/26/21 01/19/22 atorvastatin 20 mg tablet 20 mg PO QHS #90 tabs 12/28/21 01/19/22 Previous Rx's Medication Instructions Recorded lisinopril 10 mg tablet 10 mg PO DAILY #90 tab-caps 11/14/20 acetaminophen 500 mg capsule 1,000 mg PO Q8H PRN PRN #90 caps 06/12/21 albuterol sulfate 90 mcg/actuation 2 puff inhalation QID #8.5 grams 09/14/21 aerosol inhaler (Proventil HFA) nitroglycerin 0.4 mg sublingual 0.4 mg sublingual Q5M PRN chest 11/23/21 tablet pain #5 tabs pregabalin 100 mg capsule (Lyrica) See Rx Instructions PO QHS #90 caps 11/26/21 pregabalin 50 mg capsule (Lyrica) 50 mg PO DAILY #90 caps 11/26/21 atorvastatin 20 mg tablet 20 mg PO QHS #90 tabs 12/28/21 Allergies Allergy/AdvReac Type Severity Reaction Status Date / Time Penicillins Allergy Unknown Verified 01/19/22 20:32 Tegaderm acyrlic adhesive AdvReac Intermediate rash Uncoded 01/19/22 20:32 General Stated Complaint: Chest Pain DEE: 2 Review of Systems All systems reviewed & are unremarkable except as noted in HPI and below Constitutional Constitutional: Denies chills, Denies fever(s) and Denies weakness Eyes Eyes: Denies loss of vision Cardiovascular Cardiovascular: Denies dyspnea Respiratory Respiratory: Denies cough and Denies dyspnea Gastrointestinal Gastrointestinal: Denies nausea and Denies vomiting Musculoskeletal Musculoskeletal: Denies joint swelling Neurologic Neurologic: Denies loss of vision and Denies weakness PFSH All Active Problems (Updated 01/19/22 @ 22:12 by Gustavo Vasquez MD) Epigastric pain (Acute) Hyperlipidemia (Acute) Chest tightness (Acute) Contusion of left patella (Acute) Depression (Chronic) Bronchospasm (Acute) History of total left knee replacement (TKR) (Acute 06/12/21) GERD (gastroesophageal reflux disease) (Chronic) Osteoarthrosis (Chronic) Essential hypertension (Chronic 07/13/13) Obesity (Chronic 07/23/12) Sensorineural hearing loss of combined sites, bilateral (Acute) Idiopathic neuropathy (Acute) Seeing ROXANA Boone- Uses Brock Prediabetes (Acute) Foot pain, bilateral (Acute) Medical History BCC (basal cell carcinoma), eyelid Mohs scheduled [facility] [place] Calculus of gallbladder without cholecystitis without obstruction (09/22/15) Carpal tunnel syndrome on both sides (08/25/15) Chronic otorrhea of right ear to Dr. Flynn- tube placed x2- Filiberto Franz at [facility] [place]- repaired 09/2020 Chronic serous otitis media, right ear Colon polyp, hyperplastic (~06/2020) CSF otorrhea Diverticulitis of colon COLONOSCOPY-06/17/14; DR. DELUNA Dysfunction of right eustachian tube Hyperlipidemia Left lumbar radiculopathy (03/07/16) Perforated diverticulitis (05/06/14) Polymyalgia rheumatica (10/13/15) Primary osteoarthritis of right knee knee replaced Right nasal polyps 05/2020- nasal mass to be removed [facility] [place] Dr. Adam Tubulovillous adenoma (~06/2020) Umbilical hernia Unilateral primary osteoarthritis, left knee Injected: 01/03/2021; 07/10/20; 12/24/19; 12/28/2018 Surgical History Complete tear of left rotator cuff (05/28/17) S/P Repair Had to have 2 surgeries after an anchor was pulled H/O esophagogastroduodenoscopy (~05/25/18) History of cholecystectomy (10/08/15) History of colonoscopy (~06/2020) History of exploratory laparotomy (07/26/14) History of umbilical hernia repair repair of wound dehisence Reports 4 surgeries in 2014 Required skin graft and now has mesh in place Right rotator cuff tear S/P repair: 01/18/2020 S/P colonoscopy (~05/25/18) S/P TKR (total knee replacement) Right in 2019 Dr Rocha Sigmoidoscopy 07/26/14; DR. 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 Brother Diabetes Son No problems noted. Daughter No problems noted. Daughter No problems noted. Daughter No problems noted. 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 [employer] Pets and animals: Yes Pets and animals: cat(s) Sexually active: No Do you think of yourself as: straight/heterosexual Current gender identity: male What is your relationship status?: How often do you talk on the phone with friends or family?: three or more times per week How often do you get together with friends or relatives?: decline to answer How often do you attend mandaen or voodoo services?: decline to answer Do you belong to any clubs or organized social groups?: no Panel score (0-1 are the most socially isolated patients): 2 What type of physical activity do you participate in: walking Duration: > 90 minutes/day Frequency: 1-2 times per week Marie/Lutheran: None Special marie needs: No Seatbelt use: always Helmet use: No Drive intox or ride w/intox food service driver: No Do you feel safe at home: Yes Do you feel safe in your relationship?: Yes Exam Const General: no acute distress Orientation: alert HENMT Head: normal to inspection Ears: external ears normal General nose exam: external nose normal Mouth: moist mucous membranes Eyes General: appearance normal, both eyes and all related structures Neck Neck: normal visual inspection Resp Effort & Inspection: normal respiratory effort and able to speak in complete sentences Cardio Rate: regular rate Heart Sounds: no murmurs GI Palpation: soft, not firm and no guarding Skin General skin exam: no rashes or lesions noted Neuro General: patient alert and patient oriented x3 Extrem General: normal to inspection Psych Mental Status: mental status grossly normal Course Vital Signs Vital signs: Vital Signs Temperature 36.1 C L 01/19/22 20:25 Pulse 74 01/19/22 20:25 Respiratory Rate 18 01/19/22 20:25 Blood Pressure 169/87 H 01/19/22 20:25 Pulse Oximetry 97 01/19/22 20:25 Temperature 36.1 C L 01/19/22 20:25 Temperature Source Tympanic 01/19/22 20:25 Pulse 74 01/19/22 20:25 Respiratory Rate 18 01/19/22 20:25 Respiratory Effort 01/19/22 20:25 Blood Pressure 169/87 H 01/19/22 20:25 Blood Pressure Position Supine 01/19/22 20:25 Pulse Oximetry 97 01/19/22 20:25 Oxygen Delivery Method Nasal Cannula 01/19/22 20:25 Pain Level 5 01/19/22 20:25 Lab/Test Results Lab/Test Results: Laboratory Tests Range/Units 01/19/22 01/19/22 20:30 20:35 WBC (4.4-10.8) 10^3/uL 9.45 RBC (4.36-5.78) 10^6/uL 4.72 Hgb (13.5-17.5) g/dL 15.1 Hct (40.0-50.0) % 44.8 MCV (80-95) fL 95 MCH (27.0-33.0) pg 32.0 MCHC (32.0-36.0) % 33.7 RDW (11.8-14.1) % 11.9 Plt Count (130-400) 10^3/uL 158 MPV (8.0-11.0) fL 10.2 Immature Gran % 0.2 Neutrophils % 58.4 Lymphocytes % 23.1 Monocytes % 11.1 Eosinophils % 6.7 Basophils % 0.5 Nucleated RBC % (0.0-0.3) % 0.0 Absolute Neutrophils (1.2-6.7) 10^3/uL 5.52 Absolute Lymphocytes (1.2-3.4) 10^3/uL 2.18 Absolute Monocytes (0.1-0.8) 10^3/uL 1.05 H Absolute Eosinophils (0.0-0.7) 10^3/uL 0.63 Absolute Basophils (0.0-0.2) 10^3/uL 0.05 COVID-19 Source Nasal/Nares
[2022-01-19 20:49] LABS: INR 1.1 (0.9-1.1); PTT Activated 25.4 sec (21.0-27.5); Prothrombin Time 11.4 sec (9.3-11.0)
[2022-01-19 21:00] LABS: ALT 33 U/L (16-63); AST 27 U/L (15-37); Albumin 4.4 g/dL (3.4-5.0); Alkaline Phosphatase 76 U/L (46-116); Anion Gap 8.6 mmol/L (3-11); BUN 20 mg/dL (7-18); Bilirubin, Total 0.8 mg/dL (0.2-1.0); CO2 28.4 mmol/L (21.0-32.0); CREATININE 1.6 mg/dL (0.70-1.30); Calcium 9.1 mg/dL (8.5-10.1); Chloride 106 mmol/L (98-107); Estimated GFR 44.93 (mL/min/1.73m2); Glucose 133 mg/dL (74-106); Sodium 143 mmol/L (136-145); Total Protein 7.4 g/dL (6.4-8.2)
--- NOTE | 2022-01-19 21:03 | DI.CT_ITS ---
Exam(s) CT CHEST PE ABD PELVIS W EXAM: CT CHEST PE ABD PELVIS W CLINICAL HISTORY: chest and upper abdominal pain. TECHNIQUE: Imaging Protocol: Axial CT angiography was performed with multi-slice acquisition and m ulti-planar and/or 3D reconstructions. CONTRAST MATERIAL: Intravenous: Omnipaque 350 Contrast volume:100 ml Oral: None COMPARISON: CT ABD PELVIS WO CONTRAST from 06/15/2016 FINDINGS: CHEST: PULMONARY ARTERIES: There are no intra-arterial filling defects to suggest the presence of acute pulm onary emboli. LUNGS: There is no evidence of pulmonary infarction.There are few tiny benign-appearing nodules as we ll as calcified granulomas. There are no pleural effusions. MEDIASTINUM: There is no hilar nor mediastinal adenopathy. Visualized thyroid unremarkable. CARDIAC: Heart size is normal. There is no pericardial effusion. There is no significant shift of t he interventricular septum.Caliber of the thoracic aorta is within normal limits. OSSEOUS: No significant osseous lesions.. ABDOMEN: Small hiatal hernia There is no ascites. LIVER: Liver is hypodense implying steatosis. There are no discrete focal hepatic lesions identified . No dilated intrahepatic ducts. GALLBLADDER/BILIARY: Gallbladder surgically absent. CBD is not dilated. PANCREAS: No evidence of pancreatic mass nor dilatation of the pancreatic duct. SPLEEN: Spleen is not enlarged. There are no intrasplenic lesions. Splenic and portal veins are schmidt nt. ADRENALS: There are no significant adrenal masses. KIDNEYS:There is a benign cyst in the posterior cortex of the right kidney which measures 2 x 1.8 cm. No solid renal masses. No calculi nor hydronephrosis.. ABDOMINAL AORTA: No abdominal aortic aneurysm. Also no aneurysmal dilatation of the iliac arteries. LYMPH NODES: There is no retroperitoneal or para-aortic adenopathy. ABDOMINAL WALL/GI: Evidence of previous surgery with anterior abdominal wall mesh. No active hernia at this time. No bowel obstruction. PELVIS: LYMPH NODES: There is no intrapelvic nor inguinal adenopathy. GI: No evidence of appendicitis.There are sigmoid diverticuli. There is no evidence of obvious acute diverticulitis. There is also diverticulosis of the left side of the colon evident. URINARY BLADDER: Unremarkable. REPRODUCTIVE: Prostate not enlarged. Seminal vesicles unremarkable. No obturator adenopathy. OSSEOUS: Multilevel disc space narrowing. No osseous lesions. IMPRESSION: 1. No evidence of acute pulmonary emboli nor pulmonary infarction. No confluent infiltrates nor pleu ral effusions nor intrathoracic adenopathy. There are few benign tiny nodules in the lung wade. T hese exhibit benign appearance. Also few benign granulomas. 2. Hepatic steatosis. No discrete focal hepatic lesions. 3. Gallbladder surgically absent. Biliary tree is not dilated. 4. Previous anterior abdominal hernia mesh surgery. No hernia seen at this time. 5. Diverticulosis of the left side of the colon and sigmoid but no obvious acute diverticulitis. RADIATION DOSE DELIVERED: 1,649.17mGy.cm Total DLP DATA REPOSITORY: All CT scans at this facility are submitted to the National Radiology Data Registry (NRDR) Dose Index Registry (DIR) with the [employer] (ACR). RADIATION OPTIMIZATION: All CT scans at this facility use at least one of these dose optimization te chniques: automated exposure control; mA and/or kV adjustment per patient size (includes targeted exa ms where dose is matched to clinical indication); or iterative reconstruction.
[2022-01-19 21:08] LABS: COVID-19 PCR Negative (Negative)
[2022-01-19 21:08] LABS: Lipase 343 U/L (73-393); Magnesium 1.7 mg/dL (1.8-2.4); NT-proBNP 41 pg/mL (<300); TSH (W/Ref FT4) 2.71 uIU/mL (0.36-3.74); Troponin I < 50 ng/L (<or=60)
[2022-01-19] MEDS: Omnipaque 350 MG/ML 100 ML BTL IJ (21:25)
--- NOTE | 2022-01-19 21:56 | DI.VRAD_ITS ---
PROCEDURE INFORMATION: Exam: CTA Chest With Contrast Exam date and time: 01/19/2022 20:59 Age: 76 years old Clinical indication: Abdominal pain; Generalized; On breathing; Patient HX: Chest and upper abdomen pain TECHNIQUE: Imaging protocol: Computed tomographic angiography of the chest with contrast. 3D rendering (Not supervised by radiologist): MIP and/or 3D reconstructed images were created by the technologist. Radiation optimization: All CT scans at this facility use at least one of these dose optimization techniques: automated exposure control; mA and/or kV adjustment per patient size (includes targeted exams where dose is matched to clinical indication); or iterative reconstruction. Contrast material: OMNI-PAQUE 350; Contrast volume: 100 ml; Contrast route: INTRAVENOUS (IV); COMPARISON: CR ABD FLAT UPRIGHT PA CHEST 09/21/2015 21:35 FINDINGS: Pulmonary arteries: No pulmonary emboli. Aorta: No aortic aneurysm. No aortic dissection. Lungs: The lungs are mildly hyperinflated. Benign-appearing right basilar cyst. Subcentimeter left lower lobe nodule. Follow-up as per institutional protocol. There are benign, calcified pulmonary granulomas. Minimal dependent subsegmental atelectasis. Pleural spaces: No pneumothorax. No pleural effusion. Heart: No cardiomegaly. No pericardial effusion. Lymph nodes: No enlarged lymph nodes. Diaphragm: Tiny hiatal hernia. Bones/joints: Evidence of left rotator cuff repair. No acute fracture or subluxation. Soft tissues: No suspicious lesions. IMPRESSION: 1. No acute findings. 2. Incidental findings as described. PROCEDURE INFORMATION: Exam: CT Abdomen And Pelvis With Contrast Exam date and time: 01/19/2022 20:59 Age: 76 years old Clinical indication: Abdominal pain; Generalized; On breathing; Patient HX: Chest and upper abdomen pain TECHNIQUE: Imaging protocol: Computed tomography of the abdomen and pelvis with contrast. Radiation optimization: All CT scans at this facility use at least one of these dose optimization techniques: automated exposure control; mA and/or kV adjustment per patient size (includes targeted exams where dose is matched to clinical indication); or iterative reconstruction. Contrast material: OMNI-PAQUE 350; Contrast volume: 100 ml; Contrast route: INTRAVENOUS (IV); COMPARISON: CT ABD PELVIS WO CONTRAST 06/15/2016 23:41 FINDINGS: Diaphragm: Tiny hiatal hernia. Liver: Fatty liver with no mass lesions. Gallbladder and bile ducts: Cholecystectomy. Typical caliber of the CBD for a post cholecystectomy patient. Pancreas: No ductal dilation. No masses. Spleen: No splenomegaly or focal lesions. Adrenal glands: No mass. Kidneys and ureters: Benign-appearing renal cysts and probable cysts. No renal masses or hydronephrosis bilaterally. Stomach and bowel: Colonic diverticulosis without diverticulitis. No focal pathology in the small bowel. Appendix: No evidence of appendicitis. Intraperitoneal space: No free air. No significant fluid collection. Vasculature: No abdominal aortic aneurysm. Lymph nodes: Mildly prominent portacaval lymph node. Urinary bladder: Unremarkable as visualized. Reproductive: Unremarkable as visualized. Bones/joints: Degenerative changes in the spine. No acute fracture or subluxation. Soft tissues: Left greater than right inguinal hernias containing fat, small to moderate. Diastasis recti. Suspected ventral infraumbilical hernia mesh. Please correlate with the surgical history. IMPRESSION: 1. No acute findings. 2. Incidental findings as described. Dictated and Authenticated by: Cheyenne Loaiza MD. Ordering:JULIO Chen MD
== END 2022-01-19 22:23 | disposition home or self-care (01) ==
PROVIDERS: Emergency Provider Emergency Medicine; PCP Nurse Practitioner Family
DX: R10.13 Epigastric pain (principal); I10 Essential (primary) hypertension; R91.8 Other nonspecific abnormal finding of lung field; Z20.822 Contact with and (suspected) exposure to COVID-19; R06.89 Other abnormalities of breathing
CPT/HCPCS: 36415; 71275; 74177; 80053; 83690; 87635; 93005; 99285; 83735; 83880; 84443; 84484; 85025; 85610; 85730; 93010; J3490

== ENCOUNTER 2022-02-18 13:10 | Outpatient (CLI) | payer MEDICARE, SELFPAY ==
--- NOTE | 2022-02-18 11:15 | DI.RAD_ITS ---
Exam(s) XR KNEE LT 3V AP,LAT,ABELINO EXAM: XR KNEE LT 3V AP,LAT,ABELINO CLINICAL HISTORY: L TKR pain. TECHNIQUE: 2D digital imaging was performed. Three views. COMPARISON: CR XR KNEE LT 3V AP,LAT,ABELINO from 11/06/2021 FINDINGS: There has been no change in the total knee prosthesis or appearance of the surrounding bone. IMPRESSION: Stable total knee prosthesis. DATA REPOSITORY: RADIATION DOSE DELIVERED:
== END 2022-02-18 13:11 | disposition home or self-care (01) ==
LOC: DIORS 13:11
PROVIDERS: PCP Nurse Practitioner Family; Referring Provider Nurse Practitioner Family; Visit Provider Physician Assistant
DX: S80.02XA Contusion of left knee, initial encounter (principal); Z96.652 Presence of left artificial knee joint; X58.XXXA Exposure to other specified factors, initial encounter; M65.9 Synovitis and tenosynovitis, unspecified
CPT/HCPCS: 73562; 99213

== ENCOUNTER 2022-03-14 06:07 | Day surgery (SDC) | payer MEDICARE, SELFPAY ==
[2022-03-14] VITALS (8 sets, daily range): BP systolic 115–137; BP diastolic 67–86; PULSE 66–82; RESP 15–18; TEMP 36.3–36.6; O2SAT 92–99; BMI 35.7
[2022-03-14] MEDS: Acetaminophen 500 MG TAB 1000 MG PO (06:39)
[2022-03-14] MEDS: Celecoxib 200 MG CAP 400 MG PO (06:39)
[2022-03-14] MEDS: Gabapentin 300 MG CAP PO (06:39)
[2022-03-14] MEDS: Lactated Ringers 1,000 ML 80 ML IV (06:54)
--- NOTE | 2022-03-14 07:08 | W.ANESPRE ---
General Info Date of Service Date Performed: 03/14/22 Height: 5 ft 7 in Weight: 103.6 kg Body Mass Index (BMI): 35.7 Surgical Procedure: Operation Date: 03/14/22 07:55 Proposed Procedure Side Surgeon p Knee Arthroscopy Synovectomy Left Tutu Rocha MD Meds Allergies and Home Medications Allergies Allergy/AdvReac Type Severity Reaction Status Date / Time Penicillins Allergy Unknown Verified 03/14/22 06:17 Tegaderm acyrlic adhesive AdvReac Intermediate rash Uncoded 03/12/22 10:05 Home Medication Medication Instructions Recorded multivitamin (Daily Multi-Vitamin 1 ea PO DAILY 12/28/12 tablet) omega-3 fatty acids 500 mg capsule 500 mg PO DAILY 12/28/12 (Fish Oil) acetaminophen 500 mg capsule 1,000 mg PO Q8H PRN PRN #90 caps 06/12/21 nitroglycerin 0.4 mg sublingual 0.4 mg sublingual Q5M PRN chest 11/23/21 tablet pain #5 tabs pregabalin 100 mg capsule (Lyrica) See Rx Instructions PO QHS #90 caps 11/26/21 atorvastatin 20 mg tablet 20 mg PO QHS #90 tabs 12/28/21 duloxetine 30 mg capsule,delayed 30 mg PO DAILY 01/25/22 release sprinkle pregabalin 50 mg capsule (Lyrica) 50 mg PO DAILY #90 caps 02/04/22 lisinopril 10 mg tablet 10 mg PO DAILY #90 tab-caps 02/08/22 albuterol sulfate 90 mcg/actuation 2 puff inhalation QID PRN 03/14/22 aerosol inhaler (Proventil HFA) Current Visit Medications: Current Medications Generic Name Dose Route Start Last Admin Trade Name Freq PRN Reason Stop Dose Admin Acetaminophen 1,000 mg 03/14/22 06:00 03/14/22 06:39 Acetaminophen 500 Mg Tab PO 03/14/22 18:00 1,000 mg PREOP ARSEN Administration Celecoxib 400 mg 03/14/22 06:00 03/14/22 06:39 Celecoxib 200 Mg Cap PO 03/14/22 18:00 400 mg PREOP ARSEN Administration Gabapentin 300 mg 03/14/22 06:00 03/14/22 06:39 Gabapentin 300 Mg Cap PO 03/14/22 18:00 300 mg PREOP ARSEN Administration Ringer's Solution 1,000 mls @ 80 mls/hr 03/14/22 06:00 03/14/22 06:54 IV 04/12/22 23:59 80 mls/hr INFUSION ARSEN Administration Cefazolin Sodium/Dextrose 2 gm in 50 mls @ 100 mls/hr 03/14/22 06:00 Ancef Duplex IVPB 03/14/22 16:00 PREOP ARSEN IV Miscellaneous Supplies 1 each 03/14/22 06:00 Iv Access IV 04/12/22 23:59 DIRECTED ARSEN Sodium Chloride 0 ml 03/14/22 06:00 Normal Saline Flush 10 Ml Syr IV 04/12/22 23:59 PRN PRN Sodium Chloride 0 ml 03/14/22 06:00 Normal Saline 10 Ml Vial IJ 04/12/22 23:59 DIRECTED PRN Sterile Water 0 ml 03/14/22 06:00 Water,Injection,Sterile 10 Ml Vial IJ 04/12/22 23:59 DIRECTED PRN PFSH Active Problems Active Problems: Problem Status Onset Code GERD (gastroesophageal reflux disease) K21.9 Osteoarthrosis M19.90 Essential hypertension 07/13/13 I10 Obesity 07/23/12 E66.9 Sensorineural hearing loss of combined sites, bilateral H90.3 Idiopathic neuropathy G60.9 Prediabetes R73.03 Foot pain, bilateral M79.671, M79.672 History of total left knee replacement (TKR) 06/12/21 Z96.652 Bronchospasm J98.01 Depression F32.A Contusion of left patella S80.02XA Chest tightness R07.89 Hyperlipidemia E78.5 Increase in creatinine R79.89 Synovitis of left knee M65.9 Medical History Medical History BCC (basal cell carcinoma), eyelid Mohs scheduled [facility] 03/2021 Calculus of gallbladder without cholecystitis without obstruction (09/22/15) Carpal tunnel syndrome on both sides (08/25/15) Chronic otorrhea of right ear to Dr. Flynn- tube placed x2- Filiberto Franz at [facility]- repaired 09/2020 Chronic serous otitis media, right ear Colon polyp, hyperplastic (~06/2020) CSF otorrhea Diverticulitis of colon COLONOSCOPY-06/17/14; DR. DELUNA Dysfunction of right eustachian tube Hyperlipidemia Left lumbar radiculopathy (03/07/16) Perforated diverticulitis (05/06/14) Polymyalgia rheumatica (10/13/15) Primary osteoarthritis of right knee knee replaced Right nasal polyps 05/2020- nasal mass to be removed [facility] [place] Dr. Adam Tubulovillous adenoma (~06/2020) Umbilical hernia Unilateral primary osteoarthritis, left knee Injected: 01/03/2021; 07/10/20; 12/24/19; 12/28/2018 Medical History Comments:: Dental: 2 missing teeth, top Metal: R Knee, R & L shoulders hard of hearing, left ear is better Surgical History Surgical History (Updated 03/14/22 @ 06:17 by Polo Dill) Complete tear of left rotator cuff (05/28/17) S/P Repair Had to have 2 surgeries after an anchor was pulled H/O colectomy H/O esophagogastroduodenoscopy (~05/25/18) History of cholecystectomy (10/08/15) History of colonoscopy (~06/2020) History of exploratory laparotomy (07/26/14) History of umbilical hernia repair repair of wound dehisence Reports 4 surgeries in 2014 Required skin graft and now has mesh in place Right rotator cuff tear S/P repair: 01/18/2020 S/P colonoscopy (~05/25/18) S/P TKR (total knee replacement) Right in 2019 Dr Rocha Sigmoidoscopy 07/26/14; DR. DELUNA Status post knee surgery right knee arthroscopy Status post tonsillectomy and adenoidectomy Status post total right knee replacement (05/19/19) May 2019 Status post trigger finger release Tobacco Smoking/Tobacco Use Status: Never Passive smoking exposure: Yes Second hand exposure: Yes Alcohol Alcohol Intake: never Substance Use Substance use: Never Substance use type: does not use Vital Signs and Lab Results Vital Signs Most Recent Vital Signs in EMR: Most Recent Vital Signs Temp Pulse Resp BP Pulse Ox 36.6 C 76 16 132/83 92 03/14/22 06:22 03/14/22 06:22 03/14/22 06:22 03/14/22 06:22 03/14/22 06:22 Lab Results Blood Type / Crossmatch: No Data to Display Complete Blood Count: No Data to Display Complete Metabolic Panel: No Data to Display Liver Function Panel: No Data to Display Coagulation Panel: No Data to Display Cardiac Panel: No Data to Display Arterial Blood Gas: No Data to Display Venous Blood Gas: No Data to Display Pancreas Panel: No Data to Display Thyroid Panel: No Data to Display Infectious Disease: No Data to Display Blood Cultures: No Data to Display Toxicology Panel: No Data to Display Imaging and Studies Imaging and Studies Study information below may be from another EMR and interpreted by another provider. Please see original notes in EMR for more complete details. EKG Summary: Conclusion Sinus rhythm...normal P axis, V-rate 60- 99 Low voltage, extremity and precordial leads...extremity<0.5mV, precordial<1.0mV 01/19/22 Stress Test Summary: 12/04/21 Echocardiogram Summary: 1. Left ventricle: The cavity size was normal. Wall thickness was normal. Systolic function was normal. The estimated ejection fraction was 60-65%. Wall motion was normal; there were no regional wall motion abnormalities. Some parameters suggest diastolic dysfunction. 2. Mitral valve: There was mild regurgitation. 3. Right ventricle: The cavity size was mildly dilated. Wall thickness was normal. Systolic function was normal. 4. Right atrium: The atrium was dilated. 5. Pulmonary arteries: Systolic pressure could not be accurately determined, but appeared to be increased, at least 30 to 35 mmHg. Carotid Artery Summary:: IMPRESSION: Minimal calcific plaque. No evidence of significant internal carotid artery stenosis. Anesthesia Assessment and Plan Anesthesia History Personal History: No History of Anesthesia Complications Family History: No Family History of Anesthesia Complications Exercise Tolerance Exercise Tolerance: Metabolic Equivalents>4 Pertinent Negatives Pertinent Negatives: No Symptoms of GERD (Well controlled), No Major Cardiovascular Symptoms or Complaints, No Major Pulmonary Symptoms or Complaints and No History of CVA/TIA Cardiac & Pulmonary Exam Cardiac Exam: Normal S1/S2 Heart Sounds Pulmonary Exam: Clear Bilateral Breath Sounds Implantable Cardiac Device Does patient have a Pacemaker or an ICD?: No Airway Exam Known Difficult Airway: No Mallampati Class: 2 Mouth Opening: Normal (> 3cm) Thyromental Distance: Greater than 3 cm Neck Range of Motion: Full ROM Neck Circumference: Normal Teeth Condition: Normal Dentition (Some missing, none loose per pt. ) ASA Classification ASA Score: ASA 2 Emergency Case?: No NPO Status NPO Status: NPO Clears >2 hours, Solids >8 hours Anesthesia Plan Resuscitation Status: Full Code Anesthesia Technique: General Anesthesia Airway Planned: LMA Monitors Used: Standard Monitors
[2022-03-14] MEDS: ceFAZolin 2 GM/50 ML BAG IVPB (07:48)
[2022-03-14] MEDS: Bupivacaine 0.5% Pres-Free 30 ML VIAL (08:05)
--- NOTE | 2022-03-14 08:13 | W.PM.DSUDISC ---
Date of service: 03/14/22 Time of Service: 08:16 Discharge Plan Disposition Patient Disposition: Home Condition: Good Discharge Details Reason For Visit: Left knee synovitis Attending Provider: Tutu Rocha Primary Care Provider: Lynn Mercado Home Meds and New Rx's Prescriptions: New hydrocodone-acetaminophen 5-325 mg tablet 1 tab PO Q6H PRN (Reason: severe pain) Qty: 4 0RF Rx Instructions: Take one tablet up to every 6 hours as needed for severe postoperative pain acetaminophen 500 mg tablet 500 mg PO Q6H PRN (Reason: pain) Qty: 60 2RF ibuprofen 600 mg tablet 600 mg PO TID PRN (Reason: pain) Qty: 60 0RF Continued nitroglycerin 0.4 mg tablet, sublingual 0.4 mg sublingual Q5M PRN (Reason: chest pain) Qty: 5 0RF Rx Instructions: do not exceed 3 doses per episode atorvastatin 20 mg tablet 20 mg PO QHS Qty: 90 3RF duloxetine 30 mg capsule, delayed rel sprinkle 30 mg PO DAILY multivitamin [Daily Multi-Vitamin] 1 EACH tablet 1 ea PO DAILY Fish Oil 500 MG capsule 500 mg PO DAILY pregabalin [Lyrica] 100 mg capsule See Rx Instructions PO QHS Qty: 90 3RF Rx Instructions: 50 mg am 100 mg pm orally ; pregabalin [Lyrica] 50 mg capsule 50 mg PO DAILY Qty: 90 1RF Rx Instructions: Pendning dose/taper. lisinopril 10 mg tablet 10 mg PO DAILY Qty: 90 3RF albuterol sulfate [Proventil HFA] 90 mcg/actuation HFA aerosol inhaler 2 puff IH QID PRN Discontinued acetaminophen 500 mg capsule 1,000 mg PO Q8H PRN PRNQty: 90 0RF Discharge Instructions Additional Instructions: Knee Manipulation/Arthroscopic Synovectomy Discharge Instructions Activity: You should begin moving as soon as possible. You may work on flexion but also equally maintain extension. You may bear weight as tolerated, using crutches only for support/comfort. You should apply ice to help with swelling and elevate when possible (especially in the first few days). Dressings: The knee dressing may come down after 48 hours. You may shower and get the wound wet at that time. You should keep the wounds covered with a bandaid until follow-up. Medications: - Rarely does this require any stronger pain medications. - Recommend to take up to 1000mg of Acetaminophen (Tylenol) and 600mg of Ibuprofen (Advil) every 8 hours as needed. These larger strength tablets were called in but you also may use uodv-lno-swpcnes. Follow-up: 7-10 days Referrals: Tutu Rocha MD [ [facility] STAFF PHYSICIAN] - Equipment/Supplies: Partial Weight Bearing Crutches Activity:: Elevate Remove Dressings/Wound Care:: 48 hours Shower/Bathe:: 48 hours Diet:: As Tolerated Discharge Orders Discharge Orders: Discharge Order (Routine); Ordered 03/14/22 Ordered By: Tutu Rocha
[2022-03-14] MEDS: EPINEPHrine 30 MG/30 ML VIAL (08:18)
--- NOTE | 2022-03-14 10:04 | ROE_ITS ---
Date of service: 03/14/22 Time of Service: 08:30 Operative Note Operative Note DATE OF PROCEDURE: 03/14/22 PRE-OP DIAGNOSIS: Left Knee Synovitis s/p TKA POST-OP DIAGNOSIS: same PROCEDURE: Arthroscopic Synovectomy of 3 Compartments - Left Knee SURGEON: Tutu Rocha ANESTHESIA TYPE: General LMA/ETT Refer to Anesthesia Record ESTIMATED BLOOD LOSS: 0 PATHOLOGY: none sent COMPLICATIONS: None Patient was transported to: PACU Patient's condition: stable Indications: I have seen Chandrakant in clinic for symptoms of crepitus and synovitis of the knee f ollowing knee replacement surgery. Nonoperative measures were exhausted but disability due to lack of motion persisted. I discussed knee arthroscopy with synovectomy. I reviewed the risks of the procedure to include, but not limited to, bleeding, infection, pain, continued stiffness, recurrence, blood clot. Despite these risks, the patient elected to proceed. Findings: There is dense synovitis seen in the lateral gutter. A small piece of interposed tissue was discovered between the femoral component and the polyethylene about the lateral side of the knee. Procedure Description: Chandrakant was greeted in the preoperative holding area where the correct side was identified and marked. The consent was reviewed with the patient and signed. The history and physical was updated. All questions were answered. He was taken back to the operating room. The patient was placed into the supine position on the operating room table. All bony prominences were well padded. Prophylactic antibiotics in the form of Cefazolin were administered. The left leg was then prepped with Chloraprep and draped in a standard fashion with stockinette and extremity drape. A timeout to confirm correct identity, side and site, procedure, allergies, anesthesia, and medical concerns was performed. The leg was placed into a pneumatic leg belle, [id number]. A standard lateral portal was made at the lateral border of the patella tendon in line with the inferior pole of the patella, soft spot. The skin and deep tissue was incised sharply and the blunt trochar was inserted atraumatically. At this point had visualization of the femoral component. A superolateral portal was then established with spinal needle localization just superior and lateral to the patella. A knife was taken down through the skin and soft tissue to enter the knee joint. Starting in the superior compartment above the femoral component and anterior to the femur I released all scarring between the anterior femoral synovium and the overlying extensor mechanism. This was taken through all of any noticeable scar tissue until the superior patellar pouch was fully released and mobile. This resection was carried out mostly with electrocautery as well as shaver. Once this was released fully from lateral to medial superiorly I the n continue working down the lateral gutter. All scar tissue in the lateral gutter was released so there is normal space and movement between the capsular tissues and the edge of the femoral component and femur. This was taken down through the lateral gutter such that I was able to identify the polyethylene to its posterior corner. There was dense synovitis and some fraying of the synovium in this area. This was resected with a shaver. Once again, all scar tissue in this area was resected so the polyethylene was easily visible and there is no interposed tissue in the back or the polyethylene was identified. I then worked anteriorly to remove abundant synovitis in this region. This worked across the anteromedial space. I continue to work anteromedially around the patella. Any remnant scar tissue from around the patella was then removed with a shaver and electrocautery. Attention was turned back to the lateral edge of the patella to ensure there is no prominent bone or cement or other soft tissue which could be interposed causing his grinding and clicking symptoms. Any remnant synovitis or loose pieces were resected from the lateral gutter as well as anterior space. The arthroscope was brought back into the suprapatellar pouch and the leg was in full extension. The knee was thoroughly irrigated with the arthroscopic fluid on high flow and pressure. Inflow was stopped and excess fluid was removed. The wounds were closed with 4-0 Nylon. 0.25% ropivacaine was injected around the portal sites and into the knee. The wounds were dressed with Xeroform, 4x4 gauze, ABD pad, Kerlix and an GWENDOLYN wrap. A cryo-cuff was applied. The patient tolerated the procedure well and was returned to the Same Day Surgery area in a stable condition suffering no known complication..
--- NOTE | 2022-03-14 10:26 | W.ANESPOSTOP ---
Postoperative Evaluation Date, Time and Location Date Performed: 03/14/22 Time Performed: 10:26 Patient Location: Day Surgery Unit Vital Signs Most Recent Imported Vital Signs: Most Recent Vital Signs Temp Pulse Resp BP Pulse Ox 36.4 C L 66 16 126/85 97 03/14/22 09:56 03/14/22 09:56 03/14/22 09:56 03/14/22 09:56 03/14/22 09:56 Pain Score Most Recent Pain Score: Most Recent Pain Score Pain Level 0 03/14/22 09:24 Assessment Mental Status: Awake (Alert & Oriented to Patient Baseline) Airway and Respiratory Function: Patent airway with normal (patient baseline) respiratory exam Cardiovascular Function: Hemodynamically Stable Hydration Status: Adequately Hydrated Nausea & Vomiting: No Nausea or Vomiting Pain: Pt. Denies Any Pain Peripheral Nerve Block: Patient did not receive a nerve block
== END 2022-03-14 10:15 | disposition home or self-care (01) ==
PROVIDERS: PCP Nurse Practitioner Family; Visit Provider Student in an Organized Health Care Education/Training Program
PROC: (CPT 29870; principal; 2022-03-14 07:45)
DX: M65.862 Other synovitis and tenosynovitis, left lower leg (principal); Z96.652 Presence of left artificial knee joint
CPT/HCPCS: 29876; J0690; J1100; J1885; J2405; J2704

== ENCOUNTER → 2022-03-28 10:52 | Outpatient (BNVA) | payer MEDICARE, SELFPAY | PROVIDERS: PCP Nurse Practitioner Family; Referring Provider Nurse Practitioner Family; Visit Provider Student in an Organized Health Care Education/Training Program | DX: Z47.89 Encounter for other orthopedic aftercare (principal); Z96.652 Presence of left artificial knee joint; M65.9 Synovitis and tenosynovitis, unspecified ==

== ENCOUNTER → 2022-04-10 09:06 | Outpatient (BNVA) | payer MEDICARE, SELFPAY | PROVIDERS: PCP Nurse Practitioner Family; Referring Provider Nurse Practitioner Family; Visit Provider Nurse Practitioner Adult Health | DX: R73.03 Prediabetes (principal); G60.9 Hereditary and idiopathic neuropathy, unspecified | CPT/HCPCS: 99212; 99213 ==

== ENCOUNTER 2022-04-26 01:33 | Outpatient (CLI) | payer MEDICARE, SELFPAY ==
[2022-04-26 12:36] LABS: CREATININE 1.4 mg/dL (0.70-1.30); Calculated LDL 8 mg/dL (<100); Cholesterol 110 mg/dL (<200); Estimated GFR 52.74 (mL/min/1.73m2); HDL Cholesterol 35 mg/dL (40-60); Potassium 4.4 mmol/L (3.5-5.1); Triglyceride 335 mg/dL (<150)
== END 2022-04-26 01:34 | disposition home or self-care (01) ==
LOC: LOS 01:34
PROVIDERS: PCP Nurse Practitioner Family; Visit Provider Nurse Practitioner Family
DX: I10 Essential (primary) hypertension (principal); E78.5 Hyperlipidemia, unspecified
CPT/HCPCS: 36415; 80061; 82565; 84132

== ENCOUNTER 2022-06-14 10:32 | Outpatient (CLI) | payer MEDICARE, SELFPAY ==
--- NOTE | 2022-06-14 09:00 | DI.RAD_ITS ---
Exam(s) XR KNEE LT 2V AP,LAT EXAM: XR KNEE LT 2V AP,LAT INDICATION: L TKR. COMPARISON: CR XR KNEE LT 3V AP,LAT,ABELINO from 02/18/2022 TECHNIQUE: 2D digital imaging was performed. Two views. FINDINGS: There has been no change in the alignment of the total knee prosthesis. No abnormal bony lucencies. DATA REPOSITORY: RADIATION DOSE DELIVERED:
== END 2022-06-14 10:33 | disposition home or self-care (01) ==
LOC: DIORS 10:32
PROVIDERS: PCP Nurse Practitioner Family; Referring Provider Nurse Practitioner Family; Visit Provider Student in an Organized Health Care Education/Training Program
DX: Z96.652 Presence of left artificial knee joint (principal); Z47.1 Aftercare following joint replacement surgery; M76.32 Iliotibial band syndrome, left leg
CPT/HCPCS: 99213; 73560

== ENCOUNTER 2022-10-21 02:59 | Outpatient (CLI) | payer MEDICARE, SELFPAY ==
[2022-10-21 12:29] LABS: HCT 45.6 % (40.0-50.0); HGB 15.5 g/dL (13.5-17.5); MCV 94 fL (80-95); MPV 10.4 fL (8.0-11.0); Platelet Count 165 10^3/uL (130-400); RBC 4.85 10^6/uL (4.36-5.78); RDW 11.9 % (11.8-14.1); RDW-SD 41.5 fL; WBC 5.38 10^3/uL (4.4-10.8)
[2022-10-21 12:44] LABS: ALT 42 U/L (16-63); AST 45 U/L (15-37); Alkaline Phosphatase 65 U/L (46-116); Anion Gap 8.9 mmol/L (3-11); BUN 15 mg/dL (7-18); Bilirubin, Total 0.9 mg/dL (0.2-1.0); CO2 28.1 mmol/L (21.0-32.0); CREATININE 1.4 mg/dL (0.70-1.30); Calcium 9.9 mg/dL (8.5-10.1); Calculated LDL 54 mg/dL (<100); Chloride 103 mmol/L (98-107); Cholesterol 135 mg/dL (<200); Estimated GFR 52.41 (mL/min/1.73m2); Glucose 115 mg/dL (74-106); HDL Cholesterol 37 mg/dL (40-60); Potassium 5.2 mmol/L (3.5-5.1); Sodium 140 mmol/L (136-145); Total Protein 7.4 g/dL (6.4-8.2); Triglyceride 221 mg/dL (<150)
== END 2022-10-21 03:00 | disposition home or self-care (01) ==
LOC: LOS 02:59
PROVIDERS: PCP Nurse Practitioner Family; Visit Provider Nurse Practitioner Family
DX: E78.5 Hyperlipidemia, unspecified (principal); I10 Essential (primary) hypertension; F32.4 Major depressive disorder, single episode, in partial remission; K21.9 Gastro-esophageal reflux disease without esophagitis; R73.03 Prediabetes; R79.89 Other specified abnormal findings of blood chemistry; E66.9 Obesity, unspecified
CPT/HCPCS: 36415; 80053; 80061; 85027; 83036

== ENCOUNTER → 2022-11-27 01:49 | Outpatient (CLI) | payer MEDICARE, SELFPAY ==
--- NOTE | 2022-11-27 12:24 | DI.RAD_ITS ---
Exam(s) XR HAND RT COMPLETE EXAM: XR HAND RT COMPLETE CLINICAL HISTORY: chronic right hand pain, acute exacerbation,pain rt ring finger,m79.644. TECHNIQUE: 2D digital imaging was performed. COMPARISON: No exams were available for comparison FINDINGS: 3 views No evidence of fracture subluxations. No osseous lesions. No erosions. Moderate degenerative mahoney es are noted at the 1st carpometacarpal joint. Metacarpophalangeal joints appear unremarkable as do the PIP joints. There is a 1 mm calcification off the medial aspect of the DIP joint of the 2nd-inde x finger. No osteophytes at this level. IMPRESSION: Mild degenerative changes. DATA REPOSITORY: RADIATION DOSE DELIVERED:
== END ==
PROVIDERS: PCP Nurse Practitioner Family; Visit Provider Nurse Practitioner Family
DX: M79.644 Pain in right finger(s) (principal)
CPT/HCPCS: 73130

== ENCOUNTER → 2023-01-06 13:02 | Outpatient (BNVA) | payer MEDICARE, SELFPAY | PROVIDERS: PCP Nurse Practitioner Family; Referring Provider Nurse Practitioner Family; Visit Provider Student in an Organized Health Care Education/Training Program | DX: M65.331 Trigger finger, right middle finger (principal); M18.11 Unilateral primary osteoarthritis of first carpometacarpal joint, right hand | CPT/HCPCS: 99213 ==

== ENCOUNTER 2023-03-11 06:56 | Day surgery (SDC) | payer MEDICARE, SELFPAY ==
[2023-03-11 07:13] VITALS: BP 130/75; PULSE 95; RESP 18; TEMP 36.5; O2SAT 95
--- NOTE | 2023-03-11 07:24 | W.PM.DSUDISC ---
Date of service: 03/11/23 Time of Service: 07:42 Discharge Plan Disposition Patient Disposition: Home Condition: Good Discharge Details Reason For Visit: Right middle trigger finger Attending Provider: Tutu Rocha Primary Care Provider: Lynn Mercado Home Meds and New Rx's Prescriptions: Continued omeprazole 20 mg capsule,delayed release(DR/EC) 20 mg PO DAILY Qty: 90 3RF albuterol sulfate [Proventil HFA] 90 mcg/actuation HFA aerosol inhaler 2 puff IH Q6H PRN (Reason: wheezing) Qty: 8.5 3RF Patient Comments: 03/11/23: pt reports only takes when he has a cold nitroglycerin 0.4 mg tablet, sublingual 0.4 mg sublingual Q5M PRN (Reason: chest pain) Qty: 5 0RF Patient Comments: 03/11/23 pt reports he has never taken Rx Instructions: do not exceed 3 doses per episode atorvastatin 10 mg tablet 5 mg PO QHS Qty: 90 3RF benzonatate 100 mg capsule 100 - 200 mg PO TID PRN (Reason: cough) Qty: 60 0RF Rx Instructions: Take 1-2 capsules by mouth three times a day as needed for cough pregabalin 100 mg capsule 100 mg PO QHS Qty: 90 3RF multivitamin [Daily Multi-Vitamin] 1 EACH tablet 1 ea PO DAILY Fish Oil 500 MG capsule 500 mg PO DAILY duloxetine 30 mg capsule, delayed rel sprinkle 30 mg PO BID Qty: 180 3RF lisinopril 10 mg tablet 10 mg PO DAILY Qty: 90 3RF acetaminophen 500 mg tablet 500 mg PO Q6H PRN (Reason: pain) Qty: 60 2RF ibuprofen 600 mg tablet 600 mg PO TID PRN (Reason: pain) Qty: 60 0RF Discharge Instructions Stand Alone Forms: Josefina Thomas Finger Release Referrals: Tutu Rocha MD [ [facility] STAFF PHYSICIAN] - 03/21/23 10:45 am Activity:: Elevate Remove Dressings/Wound Care:: 48 hours Shower/Bathe:: 48 hours Diet:: As Tolerated Discharge Orders Discharge Orders: Discharge Order (Routine); Ordered 03/11/23 Ordered By: Rosibel Carmona
[2023-03-11] MEDS: Lidocaine 1% Multi-Dose W/EPI 1/100,000 50 ML VIAL (08:00)
[2023-03-11] MEDS: Sodium Bicarbonate 50 MEQ/50 ML VIAL (08:00)
[2023-03-11 08:23] VITALS: BP 119/81; PULSE 93; RESP 16; TEMP 36.6; O2SAT 95
--- NOTE | 2023-03-11 09:02 | ROE_ITS ---
Date of service: 03/11/23 Time of Service: 07:45 Operative Note Operative Note DATE OF PROCEDURE: 03/11/23 PRE-OP DIAGNOSIS: Right Middle Finger Trigger Finger POST-OP DIAGNOSIS: same PROCEDURE: Trigger Finger Release - Right Middle Finger SURGEON: Tutu Rocha ANESTHESIA TYPE: Local By Surgeon Refer to Anesthesia Record ESTIMATED BLOOD LOSS: 5 PATHOLOGY: none sent COMPLICATIONS: None Patient was transported to: same day Patient's condition: stable Indications: I have seen Chandrakant in clinic for symptoms of a trigger finger. The catching, c licking, locking, and pain limited function. The diagnosis of trigger finger was evident. The symptoms had not responded to conservative measures. I discussed trigger finger release with the patient. I reviewed the risks of the procedure to include, but not limited to, bleeding, infection, pain, stiffness, incomplete release, damage to nerves or vessels, continued catching, recurrence. Despite these risks, the patient elected to proceed. Findings: There was a tightened A1 jw which was released. The flexor tendons were inspected and the patient was able to move the finger without any catching, clicking, or locking. Procedure Description: Chandrakant was greeted in the preoperative holding area where the correct side was identified and marked. The consent was reviewed with the patient and signed. All questions were answered. He was taken back to the operating room. The patient was placed into the supine position on the operating room table with the right arm on an arm board. All bony prominences were well padded. No prophylactic antibiotics were administered since this was a clean, elective hand surgical case. The right arm was then prepped with Chloraprep and draped in a standard fashion with stockinette and extremity drape. A timeout to confirm correct identity, side and site, procedure, allergies, anesthesia, and medical concerns was performed. The surgical site was marked as a longitudinal incision directly over the A1 jw of the involved digit. This was confirmed with palpation during finger flexion. This area, overlying the metacarpal head, was then anesthetized with 1% Lidocaine. The patient tolerated this well and once the anesthetic had setup, the procedure began. An incision was made in the distal flexion crease, through skin only, approximately 1cm. The deep tissues were dissected bluntly. Once the A1 jw and flexor tendons were identified the soft tissue including neurovascular structures were retracted medially and laterally. There were no crossing structures over the A1 jw. However, there were notable adhesions to the jw and the tendon sheath with significant inflammation. The proximal edge of the jw was identified and the jw was incised with tenotomy scissors. There was a release of the tendons once this was fully released. The tendons were then removed from the wound and inspected. Excess synovium was resected. The tendons were then returned and the patient was asked to move the finger into deep flexion and back to extension. There was no recreation of the pre-operative symptoms. The hand was then once more inspected for any A0 jw or area of possible constriction. The wound was then irrigated and the skin was closed with a 4-0 Nylon. This was dressed with gauze and a Conform dressing. The patient tolerated the procedure well and was returned to the Same Day Surgery area in a stable condition suffering no known complication.
== END 2023-03-11 08:46 | disposition home or self-care (01) ==
PROVIDERS: PCP Nurse Practitioner Family; Visit Provider Student in an Organized Health Care Education/Training Program
PROC: (CPT 26055; principal; 2023-03-11 08:15)
DX: M65.331 Trigger finger, right middle finger (principal)
CPT/HCPCS: 26055

== ENCOUNTER → 2023-03-14 10:14 | Outpatient (CLI) | payer MEDICARE, SELFPAY ==
--- NOTE | 2023-03-14 10:23 | DI.RAD_ITS ---
Exam(s) XR CHEST 2V PA LATERAL EXAM: XR CHEST 2V PA LATERAL CLINICAL HISTORY: cough, achy, r/o pneumonia, R05.9. TECHNIQUE: 2D digital imaging was performed. COMPARISON: No exams were available for comparison FINDINGS: 2 views: Heart size is normal. The mediastinum is not widened. Lungs are clear. No infiltrates nor pleural effusions. IMPRESSION: No acute pulmonary findings. DATA REPOSITORY: RADIATION DOSE DELIVERED:
== END ==
PROVIDERS: PCP Nurse Practitioner Family; Visit Provider Physician Assistant
DX: R05.9 Cough, unspecified (principal); J98.11 Atelectasis
CPT/HCPCS: 71046

== ENCOUNTER 2023-03-15 09:32 | Emergency (ER) | payer MEDICARE, SELFPAY ==
[2023-03-15] VITALS (95 sets, daily range): BP systolic 123–140; BP diastolic 67–90; PULSE 74–98; RESP 2–28; TEMP 37.3–37.4; O2SAT 91–99
--- NOTE | 2023-03-15 09:45 | RT.EKG_ITS ---
APPROVED REPORT Exam: Resting ECG Reason for Exam: Chest Pain Patient Location: E HR:95 bpm ECG Measurements Heart Rate 95 AXIS DE 202 P 59 QRSd 91 QRS 24 QT 345 T 36 QTc 434 Conclusion Sinus rhythm...normal P axis, V-rate 60- 99 Low voltage, extremity leads...all extremity leads <0.5mV sinus rhythm, normal axis, normal intervals, non ischemic
[2023-03-15 10:57] LABS: Abs Immature Grans 0.07 10^3/uL (0.0-0.06); Absolute Lymphocyte Count 1.48 10^3/uL (1.2-3.4); Absolute Monocyte Count 1.56 10^3/uL (0.1-0.8); Basophils % 0.3; Eosinophils % 1.3; HCT 42.5 % (40.0-50.0); HGB 14.4 g/dL (13.5-17.5); Immature Grans % 0.4; Lymphocytes % 9.5; MCH 31.3 pg (27.0-33.0); MCHC 33.9 % (32.0-36.0); MCV 92 fL (80-95); MPV 9.8 fL (8.0-11.0); Neutrophils % 78.5; Platelet Count 171 10^3/uL (130-400); RDW 12.2 % (11.8-14.1); RDW-SD 41.5 fL; WBC 15.62 10^3/uL (4.4-10.8)
[2023-03-15 10:59] LABS: Absolute Basophil Count 0.05 10^3/uL (0.0-0.2); Absolute Neutrophil Count 12.26 10^3/uL (1.2-6.7)
--- NOTE | 2023-03-15 11:00 | DI.RAD_ITS ---
Exam(s) XR CHEST 2V PA LATERAL EXAM: XR CHEST 2V PA LATERAL CLINICAL HISTORY: weakness TECHNIQUE: 2D digital imaging was performed. COMPARISON: CR ABD FLAT UPRIGHT PA CHEST from 09/21/[address] CHEST PE ABD PELVIS W from 01/19/2022 CR XR CHEST 2V PA LATERAL from 03/14/2023 FINDINGS: HEART: Normal size. Aorta: Mildly tortuous. PULMONARY VASCULATURE: Normal. LUNGS: Streaky densities at right lung base could represent atelectasis versus infiltrate. Left lung clear. PLEURAL SPACE: No pleural effusion or pneumothorax. BONE:Unremarkable for age. Soft tissues: Unremarkable. IMPRESSION: Left lower lobe atelectasis versus infiltrate. DATA REPOSITORY: RADIATION DOSE DELIVERED:
[2023-03-15] MEDS: Albuterol/Ipratropium 3 ML UPD VIAL UPD (11:09)
[2023-03-15] MEDS: methylPREDNISolone SUCC 125 MG VIAL IVP (11:09)
[2023-03-15 11:11] LABS: ALT 36 U/L (16-63); AST 25 U/L (15-37); Albumin 3.3 g/dL (3.4-5.0); Alkaline Phosphatase 101 U/L (46-116); Anion Gap 9.3 mmol/L (3-11); BUN 17 mg/dL (7-18); Bilirubin, Total 0.9 mg/dL (0.2-1.0); CO2 26.7 mmol/L (21.0-32.0); CREATININE 1.4 mg/dL (0.70-1.30); Calcium 9.4 mg/dL (8.5-10.1); Chloride 99 mmol/L (98-107); Estimated GFR 52.41 (mL/min/1.73m2); Glucose 175 mg/dL (74-106); Lipase 35 U/L (16-77); Potassium 4.1 mmol/L (3.5-5.1); Sodium 135 mmol/L (136-145); Total Protein 7.6 g/dL (6.4-8.2)
--- NOTE | 2023-03-15 11:19 | W.ED.GENAD ---
Discharge Plan Disposition Patient Disposition: Home Discharge Details Clinical Impression: Bronchitis Primary Care Provider: Lynn Mercado ED Provider: Afua Joaquin Home Meds and New Rx's Prescriptions: New doxycycline hyclate 100 mg capsule 100 mg PO BID Qty: 14 0RF prednisone 20 mg tablet 40 mg PO DAILY Qty: 10 0RF Continued omeprazole 20 mg capsule,delayed release(DR/EC) 20 mg PO DAILY Qty: 90 3RF albuterol sulfate [Proventil HFA] 90 mcg/actuation HFA aerosol inhaler 2 puff IH Q6H PRN (Reason: wheezing) Qty: 8.5 3RF Patient Comments: 03/11/23: pt reports only takes when he has a cold nitroglycerin 0.4 mg tablet, sublingual 0.4 mg sublingual Q5M PRN (Reason: chest pain) Qty: 5 0RF Patient Comments: 03/11/23 pt reports he has never taken Rx Instructions: do not exceed 3 doses per episode atorvastatin 10 mg tablet 5 mg PO QHS Qty: 90 3RF benzonatate 100 mg capsule 100 - 200 mg PO TID PRN (Reason: cough) Qty: 60 0RF Rx Instructions: Take 1-2 capsules by mouth three times a day as needed for cough pregabalin 100 mg capsule 100 mg PO QHS Qty: 90 3RF benzonatate 100 mg capsule 100 mg PO TID PRN (Reason: cough) Qty: 14 0RF multivitamin [Daily Multi-Vitamin] 1 EACH tablet 1 ea PO DAILY Fish Oil 500 MG capsule 500 mg PO DAILY duloxetine 30 mg capsule, delayed rel sprinkle 30 mg PO BID Qty: 180 3RF lisinopril 10 mg tablet 10 mg PO DAILY Qty: 90 3RF acetaminophen 500 mg tablet 500 mg PO Q6H PRN (Reason: pain) Qty: 60 2RF ibuprofen 600 mg tablet 600 mg PO TID PRN (Reason: pain) Qty: 60 0RF Discharge Instructions Instructions: Acute Bronchitis (ED) Additional Instructions: Take the antibiotic as prescribed Take the prednisone as prescribed, you received a dose today do not take your next dose until tomorrow Use your inhaler, 2 puffs with spacer every 4-6 hours as needed for cough, wheeze, shortness of breath Reassessment by your primary care physician on Friday and earlier return should you develop new or worsening complaints You may take Tylenol 650 every 6 hours as needed for discomfort Referrals: Lynn Mercado NP [Primary Care Provider] - 3 days Discharge Data Discharge Date/Time-TO BE ENTERED AT DEPARTURE: 03/15/23 12:16 Medical Decision Making 77-year-old male presenting with right upper chest wall pain and shortness of breath Evaluated yesterday by his primary care physician and presents secondary to persistence of symptoms Does not endorse significant dyspnea, pain is with coughing and deep breathing only Patient given DuoNeb, Solu-Medrol, and is reassessed, feeling improvement, able to take a fall in relation, low suspicion clinically for PE, no hypoxia here No dyspnea noted with ambulation Will place on doxycycline for persistent symptoms, history of likely COPD after reviewing x-ray, and prednisone for the next 5 days, will start tomorrow Recheck by primary care physician in 24 to 48 hours recommended Troponin and EKG without acute ischemia Return precautions reviewed and patient expressed understanding HPI General Date/Time Provider Initiated Documentation: 03/15/23 10:15. HPI Narrative: This 77-year-old male presents with right-sided body aches with pleuritic right-sided chest pain, denies shortness of breath. Has had subjective fever and chills. Denies any calf pain or swelling, recent flights, surgeries long drives, history of coagulopathy. States his symptoms started on Friday, evaluated yesterday by his primary care physician had negative rapid COVID and flu. Presents today secondary to persistence of symptoms. Feels like he cannot take a deep breath secondary to coughing when he does so. Denies history of COPD does have an inhaler interestingly which she states is helping him. Related Data Home Medications Medication Instructions Recorded Confirmed multivitamin (Daily Multi-Vitamin 1 ea PO DAILY 12/28/12 03/15/23 tablet) omega-3 fatty acids 500 mg capsule 500 mg PO DAILY 12/28/12 03/15/23 (Fish Oil) nitroglycerin 0.4 mg sublingual 0.4 mg sublingual Q5M PRN chest 11/23/21 03/15/23 tablet pain #5 tabs acetaminophen 500 mg tablet 500 mg PO Q6H PRN pain #60 tabs 03/14/22 03/15/23 ibuprofen 600 mg tablet 600 mg PO TID PRN pain #60 tabs 03/14/22 03/15/23 atorvastatin 10 mg tablet 5 mg (1/2 x 10 mg) PO QHS #90 tabs 04/30/22 03/15/23 benzonatate 100 mg capsule 100 - 200 mg (1 - 2 x 100 mg) PO 08/16/22 03/15/23 TID PRN cough #60 caps albuterol sulfate 90 mcg/actuation 2 puff inhalation Q6H PRN wheezing 08/22/22 03/15/23 aerosol inhaler (Proventil HFA) #8.5 grams duloxetine 30 mg capsule,delayed 30 mg PO BID #180 caps 10/04/22 03/15/23 release sprinkle omeprazole 20 mg capsule,delayed 20 mg PO DAILY #90 caps 10/29/22 03/15/23 release lisinopril 10 mg tablet 10 mg PO DAILY #90 tab-caps 01/01/23 03/15/23 pregabalin 100 mg capsule 100 mg PO QHS #90 caps 01/16/23 03/15/23 benzonatate 100 mg capsule 100 mg PO TID PRN cough #14 caps 03/14/23 03/15/23 doxycycline hyclate 100 mg capsule 100 mg PO BID #14 caps 03/15/23 prednisone 20 mg tablet 40 mg (2 x 20 mg) PO DAILY #10 tabs 03/15/23 Previous Rx's Medication Instructions Recorded nitroglycerin 0.4 mg sublingual 0.4 mg sublingual Q5M PRN chest 11/23/21 tablet pain #5 tabs acetaminophen 500 mg tablet 500 mg PO Q6H PRN pain #60 tabs 03/14/22 ibuprofen 600 mg tablet 600 mg PO TID PRN pain #60 tabs 03/14/22 atorvastatin 10 mg tablet 5 mg (1/2 x 10 mg) PO QHS #90 tabs 04/30/22 benzonatate 100 mg capsule 100 - 200 mg (1 - 2 x 100 mg) PO 08/16/22 TID PRN cough #60 caps albuterol sulfate 90 mcg/actuation 2 puff inhalation Q6H PRN wheezing 08/22/22 aerosol inhaler (Proventil HFA) #8.5 grams duloxetine 30 mg capsule,delayed 30 mg PO BID #180 caps 10/04/22 release sprinkle omeprazole 20 mg capsule,delayed 20 mg PO DAILY #90 caps 10/29/22 release lisinopril 10 mg tablet 10 mg PO DAILY #90 tab-caps 01/01/23 pregabalin 100 mg capsule 100 mg PO QHS #90 caps 01/16/23 benzonatate 100 mg capsule 100 mg PO TID PRN cough #14 caps 03/14/23 doxycycline hyclate 100 mg capsule 100 mg PO BID #14 caps 03/15/23 prednisone 20 mg tablet 40 mg (2 x 20 mg) PO DAILY #10 tabs 03/15/23 Allergies Allergy/AdvReac Type Severity Reaction Status Date / Time Penicillins Allergy Unknown Verified 03/15/23 09:49 Tegaderm acyrlic adhesive AdvReac Intermediate rash Uncoded 03/15/23 09:49 General Stated Complaint: RespSymp DEE: 3 PFSH All Active Problems (Updated 03/15/23 @ 12:03 by NANCIE Ashby) Bronchitis (Acute) Trigger finger, right middle finger (Acute) Osteoarthritis of carpometacarpal joint of right thumb (Acute) Iliotibial band syndrome affecting left lower leg (Acute) GERD (gastroesophageal reflux disease) (Chronic) Osteoarthrosis (Chronic) Essential hypertension (Chronic 07/13/13) Obesity (Chronic 07/23/12) Sensorineural hearing loss of combined sites, bilateral (Acute) Idiopathic neuropathy (Acute) Seeing ROXANA Boone- Kaley Gutiérrez Prediabetes (Acute) Foot pain, bilateral (Acute) Depression (Chronic) Hyperlipidemia (Acute) Increase in creatinine (Acute) Medical History (Updated 03/15/23 @ 12:03 by NANCIE Ashby) Tick bite Chest tightness Contusion of left patella Bronchospasm BCC (basal cell carcinoma), eyelid Mohs scheduled [facility] [place] Colon polyp, hyperplastic (~06/2020) Tubulovillous adenoma (~06/2020) CSF otorrhea 07/12/22 Right Ear, Recurrent [facility] [place] Chronic otorrhea of right ear to Dr. Flynn- tube placed x2- Filiberto Franz at [facility]- repaired 09/2020 Dysfunction of right eustachian tube Unilateral primary osteoarthritis, left knee Injected: 01/03/2021; 07/10/20; 12/24/19; 12/28/2018 Chronic serous otitis media, right ear Right nasal polyps 05/2020- nasal mass to be removed [facility] [place]. Adam Umbilical hernia Primary osteoarthritis of right knee knee replaced Polymyalgia rheumatica (10/13/15) Left lumbar radiculopathy (03/07/16) Diverticulitis of colon COLONOSCOPY-06/17/14; DR. 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) History of colonoscopy (~06/2020) Right rotator cuff tear S/P repair: 01/18/2020 Status post total right knee replacement (05/19/19) May 2019 Status post trigger finger release Status post tonsillectomy and adenoidectomy History of cholecystectomy (10/08/15) History of exploratory laparotomy (07/26/14) History of umbilical hernia repair Status post knee surgery right knee arthroscopy H/O esophagogastroduodenoscopy (~05/25/18) S/P colonoscopy (~05/25/18) Complete tear of left rotator cuff (05/28/17) S/P Repair Had to have 2 surgeries after an anchor was pulled repair of wound dehisence Reports 4 surgeries in 2014 Required skin graft and now has mesh in place Sigmoidoscopy 07/26/14; DR. DELUNA Family History Mother , 82 Diabetes Father , 93 Heart disease Cancer Sister No problems noted. Brother Diabetes Son No problems noted. Daughter No problems noted. Daughter No problems noted. Daughter No problems noted. 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 Pets and animals: Yes Pets and animals: cat(s) Sexually active: No Do you think of yourself as: straight/heterosexual Current gender identity: male What is your relationship status?: How often do you talk on the phone with friends or family?: three or more times per week How often do you get together with friends or relatives?: decline to answer How often do you attend baptist or christianity services?: decline to answer Do you belong to any clubs or organized social groups?: no Panel score (0-1 are the most socially isolated patients): 2 What type of physical activity do you participate in: walking Duration: > 90 minutes/day Frequency: 1-2 times per week Marie/Islam: None Special marie needs: No Seatbelt use: always Helmet use: No Drive intox or 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 w/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 Do you feel safe at home: Yes Do you feel safe in your relationship?: Yes Course Vital Signs Vital signs: Vital Signs Temperature 37.3 C 03/15/23 09:45 Pulse 98 H 03/15/23 09:45 Respiratory Rate 20 03/15/23 09:45 Blood Pressure 127/81 03/15/23 09:45 Pulse Oximetry 94 03/15/23 09:45 Temperature 37.4 C 03/15/23 11:09 Temperature Source Oral 03/15/23 10:06 Pulse 74 03/15/23 11:09 Respiratory Rate 12 03/15/23 11:09 Respiratory Effort Normal 03/15/23 10:06 Respiratory Depth Normal 03/15/23 10:06 Blood Pressure 140/90 03/15/23 11:01 Blood Pressure Position Supine 03/15/23 10:06 Pulse Oximetry 98 03/15/23 11:09 Oxygen Delivery Method Room Air 03/15/23 11:09 Oxygen Flow Rate 0 03/15/23 11:09 Pain Level 0 03/15/23 11:09 Lab/Test Results Lab/Test Results: Laboratory Tests Range/Units 03/15/23 10:41 Sodium (136-145) mmol/L 135 L Potassium (3.5-5.1) mmol/L 4.1 Chloride (98-107) mmol/L 99 Carbon Dioxide (21.0-32.0) mmol/L 26.7 Anion Gap (3-11) mmol/L 9.3 BUN (7-18) mg/dL 17 Creatinine (0.70-1.30) mg/dL 1.4 H Est GFR (CKD-EPI 2020) (mL/min/1.73m2) 52.41 Glucose (74-106) mg/dL 175 H Calcium (8.5-10.1) mg/dL 9.4 Total Bilirubin (0.2-1.0) mg/dL 0.9 AST (15-37) U/L 25 ALT (16-63) U/L 36 Alkaline Phosphatase (46-116) U/L 101 Total Protein (6.4-8.2) g/dL 7.6 Albumin (3.4-5.0) g/dL 3.3 L Lipase (16-77) U/L 35
[2023-03-15 11:22] LABS: Diff Comment Agrees w/ Instrument; RBC Morphology Normal
[2023-03-15 11:39] LABS: COVID-19 PCR Negative (Negative); Influenza A PCR Negative (Negative); Influenza B PCR Negative (Negative); RSV PCR Negative (Negative)
[2023-03-15 11:39] LABS: Bilirubin Negative (Negative); Blood Negative (Negative); Clarity Clear (Clear); Glucose Negative (Negative); Ketones Negative (Negative); Leukocyte Esterase Negative (Negative); Nitrite Negative (Negative); Specific Gravity 1.015 (1.005-1.025); pH 5.5 (5-8)
[2023-03-15 11:42] LABS: Source Nasopharynx
--- NOTE | 2023-03-15 11:52 | DI.VRAD_ITS ---
PROCEDURE INFORMATION: Exam: XR Chest Exam date and time: 03/15/2023 11:35 AM Age: 77 years old Clinical indication: Other: Weakness TECHNIQUE: Imaging protocol: Radiologic exam of the chest. Views: 2 views. COMPARISON: CR XR CHEST 2V PA LATERAL 03/14/2023 10:18 AM FINDINGS: Lungs: Hyperinflation with flattening of the diaphragms is again demonstrated. Examination negative for lobar consolidations or definite pulmonary edema. No nodules or masses. Pleural spaces: Unremarkable. No pleural effusion. No pneumothorax. Heart/Mediastinum: Unremarkable. No cardiomegaly. Bones/joints: There are moderate degenerative changes of the osseous structures. IMPRESSION: No acute findings. Dictated and Authenticated by: Yoandy Beal MD. Ordering:BERTO Caal MD
[2023-03-15 12:03] LABS: Troponin I < 50 ng/L (<or=60)
== END 2023-03-15 12:16 | disposition home or self-care (01) ==
PROVIDERS: Emergency Provider Physician Assistant; PCP Nurse Practitioner Family
DX: J40 Bronchitis, not specified as acute or chronic (principal); I10 Essential (primary) hypertension; E78.5 Hyperlipidemia, unspecified; Z11.52 Encounter for screening for COVID-19
CPT/HCPCS: 80053; 83690; 87637; 93005; 94640; 99283; 71046; 81003; 84484; 85025; 93010; J2930; J7620

== ENCOUNTER → 2023-03-21 10:33 | Outpatient (BNVA) | payer MEDICARE, SELFPAY | PROVIDERS: PCP Nurse Practitioner Family; Referring Provider Nurse Practitioner Family; Visit Provider Student in an Organized Health Care Education/Training Program | DX: Z47.89 Encounter for other orthopedic aftercare (principal); M65.331 Trigger finger, right middle finger ==

== ENCOUNTER → 2023-04-23 02:14 | Outpatient (CLI) | payer MEDICARE, SELFPAY ==
--- NOTE | 2023-04-23 15:33 | DI.CT_ITS ---
Exam(s) CT CHEST WO EXAM: CT CHEST WO CLINICAL HISTORY: continued cough, SOB,r05.9,r06.02. TECHNIQUE: Multi planar reconstructions were performed. CONTRAST MATERIAL: None COMPARISON: CT CT CHEST PE ABD PELVIS W from 01/19/2022 FINDINGS: CHEST: LUNGS: There are no confluent infiltrates nor pleural effusions. Small nodular density in the research physiologist ior basal segment of the right lower lobe is unchanged from 01/19/2022 as a some platelike atelectasi s in this region. There are no new significant right lung findings nor findings in the right mainste m bronchus. There are no new significant focal left lung findings. Small unchanged 4 millimeter sub pleural nodule is unchanged. No pleural effusions on either side. No findings in the trachea and ma instem bronchi. MEDIASTINUM: There is no obvious hilar nor mediastinal adenopathy. Visualized thyroid unremarkable.No obvious axillary adenopathy CARDIAC: Heart size is normal. There is no pericardial effusion.Caliber of the thoracic aorta is wit hin normal limits. VISUALIZED UPPER ABDOMEN:No adrenal masses. Gallbladder surgically absent. OSSEOUS: No significant osseous lesions.. IMPRESSION: 1. Stable benign-appearing lung findings. No new significant pulmonary findings and no pleural effus ions. 2. No intrathoracic adenopathy. RADIATION DOSE DELIVERED: 768.66mGy.cm Total DLP DATA REPOSITORY: All CT scans at this facility are submitted to the National Radiology Data Registry (NRDR) Dose Index Registry (DIR) with the [employer] (A[employer]). RADIATION OPTIMIZATION: All CT scans at this facility use at least one of these dose optimization te chniques: automated exposure control; mA and/or kV adjustment per patient size (includes targeted exa ms where dose is matched to clinical indication); or iterative reconstruction.
== END ==
PROVIDERS: PCP Nurse Practitioner Family; Visit Provider Nurse Practitioner Family
DX: R05.9 Cough, unspecified (principal); R06.02 Shortness of breath
CPT/HCPCS: 71250

== ENCOUNTER 2023-04-24 02:22 | Outpatient (CLI) | payer MEDICARE, SELFPAY ==
[2023-04-24] MEDS: Levalbuterol HFA 15 GM INH 4 PUFF IH (09:25)
[2023-04-24] MEDS: Inhaler, Assist Device 1 EACH MC (09:26)
--- NOTE | 2023-04-25 09:38 | W.PFT ---
Date of service: 04/24/23 Time of Service: 08:01 Pulmonary Function Test Result Indications: Cough Interpretation Spirometry: There is moderate airflow limitation. No bronchodilator response. Lung Volumes: There is air trapping. Diffusion Capacity: Normal diffusion Airway Pressure: Normal airways resistance Impression Moderate airflow obstruction with normal diffusion. This could represent chronic bronchitis (COPD) or asthma with airway remodelling Clinical Correlation therefore is recommended.
== END 2023-04-24 02:23 | disposition home or self-care (01) ==
LOC: RT 02:22
PROVIDERS: PCP Nurse Practitioner Family; Visit Provider Nurse Practitioner Family
DX: R05.9 Cough, unspecified (principal)
CPT/HCPCS: 94060; 94726; 94729

== ENCOUNTER → 2023-08-21 13:46 | Outpatient (BNVA) | payer MEDICARE, SELFPAY | PROVIDERS: PCP Nurse Practitioner Family; Referring Provider Nurse Practitioner Family; Visit Provider Physical Therapy Assistant | DX: Z12.11 Encounter for screening for malignant neoplasm of colon (principal); Z86.010 Personal history of colon polyps ==

== ENCOUNTER 2023-09-12 09:57 | Day surgery (SDC) | payer MEDICARE, SELFPAY ==
--- NOTE | 2023-09-11 12:54 | COLE_ITS ---
Date of service: 09/12/23 Time of Service: 12:22 Colonoscopy Report Date of procedure: 09/12/23 Pre-op diagnosis general: Villous adenoma/pandivertic Post-op diagnosis procedure note: other (Severe diverticula/internal hemorrhoids/colon polyp/) Surgeon: Rosibel Lyons Anesthesia Type: General:No Airway Estimated blood loss (mL): 1 Pathology: other Complications: None Disposition: same day Prep: Miralax/Dulcolax Retraction Time: n/a Procedure Description: After informed consent was obtained the patient was taken to the procedure room and placed in a left decubitous position. Monitors were applied and a time out was done. The patients name, date of , procedure, allergies to medications and metal in their body was reviewed. The patient was then sedated. Once sedated and comfortable a rectal exam was done. External exam was normal. Internal exam revealed a normal sphincter tone and no palpable masses. The prostate no palpable masses The scope was then introduced and retrofelexed. Grade 2 internal hemorrhoids x 2 columns were identified. The scope was then advanced to the cecum without difficulty. The TI and appendiceal orifice were identified. The scope was then slowly retracted over not applicable, patient does not have a sigmoid colon, minutes back into the rectum. He had a flat 5 mm polyp that was removed and the cecum. This is removed with a cold biting forcep. All specimen is retrieved and no bleeding is noted. He has severe diverticula even of the cecum. There are multiple large pockets. There is no signs of active bleeding or infection today. The anastomosis is noted today. It is wide and patent. The scope was removed and the patient was woken up and taken back to Same day surgery in stable condition. The patient tolerated the procedure well and there were no immediate complications. Follow up: The patient should follow up path pending, unless they develop changes in bowel habits or other new gastrointestinal complaints. [place] Bowel Prep [place] Bowel Prep Right Colon: 3 Left Colon: 3 Transverse Colon: 3 Total Score: 9
--- NOTE | 2023-09-11 21:41 | PDOC.DSDIS_ITS ---
Date of service: 09/12/23 Time of Service: 12:25 Discharge Plan Disposition Patient Disposition: Home Condition: Good Discharge Details Reason For Visit: colon scope Attending Provider: Rosibel Lyons Primary Care Provider: Lynn Mercado Home Meds and New Rx's Prescriptions: Continued omeprazole 20 mg capsule,delayed release(DR/EC) 20 mg PO DAILY Qty: 90 3RF albuterol sulfate [Proventil HFA] 90 mcg/actuation HFA aerosol inhaler 2 puff IH Q6H PRN (Reason: wheezing) Qty: 8.5 3RF Patient Comments: 03/11/23: pt reports only takes when he has a cold nitroglycerin 0.4 mg tablet, sublingual 0.4 mg sublingual Q5M PRN (Reason: chest pain) Qty: 5 0RF Patient Comments: 03/11/23 pt reports he has never taken Rx Instructions: do not exceed 3 doses per episode benzonatate 100 mg capsule 100 mg PO TID PRN (Reason: cough) Qty: 60 0RF multivitamin [Daily Multi-Vitamin] 1 EACH tablet 1 ea PO DAILY Fish Oil 500 MG capsule 500 mg PO DAILY duloxetine 30 mg capsule, delayed rel sprinkle 30 mg PO BID Qty: 180 3RF lisinopril 10 mg tablet 10 mg PO DAILY Qty: 90 3RF pregabalin 100 mg capsule 100 mg PO QHS Qty: 90 3RF atorvastatin 10 mg tablet 5 mg PO QHS Qty: 90 3RF acetaminophen 500 mg tablet 500 mg PO Q6H PRN (Reason: pain) Qty: 60 2RF Discontinued bisacodyl [Dulcolax (bisacodyl)] 5 mg tablet,delayed release (DR/EC) 5 mg PO ONCE Qty: 4 0RF Rx Instructions: Take per colonoscopy instructions provided by ordering providers office polyethylene glycol 3350 17 gram/dose powder 17 g PO ONCE Qty: 238 0RF Rx Instructions: Take per colonoscopy instructions provided by ordering providers office Discharge Instructions Additional Instructions: DSU Colonoscopy Post- Op Instructions Instructions for Everyone who is given Anesthesia: For your safety, please do the following for the next twenty-four (24) hours: *Do Not operate a motor vehicle (car, truck, motorcycle, etc.) *Do Not drink alcoholic beverages or use any recreational drugs for the first 24 hours or while taking pain medications. The medications in your body may have a reaction that can be dangerous. *Do Not make any important decisions or sign any important papers. Findings: -Internal hemorrhoids -Severe diverticula: Consider starting a fiber product such as Metamucil daily. This will help with constipation and diarrhea. -Small colon polyp Follow up: My office will send you a letter in 2 to 3 weeks time with the results of the pathology. 1. No lifting over 20 pounds or strenuous activity for the first 24 hours after your procedure. After 24 hours there are no restrictions on your activity but you may feel fatigued for a few days. 2. After you arrive home you may have a light meal and return to your normal diet as you can tolerate it without feeling sick to your stomach. 3. You may have a bloated, gaseous feeling in your belly (abdomen) after a colonoscopy. Passing gas and belching will help. Walking or lying down on your left side with your knees flexed may relieve the discomfort. Call the office at [phone] (Office) or [phone] (Hospital) right away if you notice any of the following: a.Vomiting of blood or ?coffee ground stools?. b.Rectal bleeding 1Tbsp, blood clots or continuous bleeding. c.Severe belly (abdominal) pain. d.A hard distended belly (abdomen) and an inability to pass gas. 4. Please don?t expect to have a normal BM (bowel movement) for 2-3 days after your procedure. 5. If there are questions regarding the findings of your procedure, please contact your doctor 6. If you are unable to contact your doctor with a problem, contact the hospital at [phone]. 7. Continue all your regular medications unless directed otherwise. I understand the above instructions and have no questions. Signature of Patient or Adult Escort Name of Responsible Adult Escort Signature of Nurse Date/Time Activity:: see above Diet:: see above Discharge Orders Discharge Orders: Discharge Order (Routine); Ordered 09/12/23 Ordered By: Rosibel Lyons DS: Diagnosis Discharge Diagnosis (1) Essential hypertension: Status: Chronic (2) Hyperlipidemia: Status: Acute (3) Prediabetes: Status: Acute (4) Obesity: Status: Chronic (5) Sensorineural hearing loss of combined sites, bilateral: Status: Acute (6) GERD (gastroesophageal reflux disease): Status: Chronic (7) Osteoarthrosis: Status: Chronic (8) Idiopathic neuropathy: Status: Acute (9) Calculus of gallbladder without cholecystitis without obstruction: (10) Perforated diverticulitis: (11) Diverticulitis of colon: (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 The patient has been able to pass gas.? They are not having abdominal pain.? They have been able to tolerate liquids and a snack.? They do not have any nausea or vomiting.? They are not having any chest pain or shortness of breath.??? They are not having any rectal bleeding. Their vital signs have been stable-see nursing notes. We discussed findings during their colonoscopy, and any biopsies that were done/polyps that were removed. The patient will be sent a letter with any biopsy results, and when to repeat the colonoscopy.-see discharge instructions. Patient was given explicit instructions to follow-up regarding colonoscopy-refer to discharge instructions.? We reviewed resumption of medications. Patient verbalized understanding and discharged in stable and satisfactory condition- See nursing notes. (13) Polymyalgia rheumatica:
[2023-09-12 10:18] VITALS: BP 139/97; PULSE 80; RESP 20; TEMP 36.4; O2SAT 95
[2023-09-12] MEDS: Lactated Ringers 1,000 ML 80 ML IV (10:34)
--- NOTE | 2023-09-12 11:39 | W.ANESPRE ---
General Info Date of Service Date Performed: 09/12/23 Height: 5 ft 7 in Weight: 97.3 kg Body Mass Index (BMI): 33.5 Surgical Procedure: Operation Date: 09/12/23 10:50 Proposed Procedure Side Surgeon rajiv Lyons, Meds Allergies and Home Medications Allergies Allergy/AdvReac Type Severity Reaction Status Date / Time Penicillins Allergy Unknown Other (See Verified 09/12/23 10:16 Comment) Tegaderm acyrlic adhesive AdvReac Intermediate rash Uncoded 09/12/23 10:16 Home Medication Medication Instructions Recorded multivitamin (Daily Multi-Vitamin 1 ea PO DAILY 12/28/12 tablet) omega-3 fatty acids 500 mg capsule 500 mg PO DAILY 12/28/12 (Fish Oil) nitroglycerin 0.4 mg sublingual 0.4 mg sublingual Q5M PRN chest 11/23/21 tablet pain #5 tabs acetaminophen 500 mg tablet 500 mg PO Q6H PRN pain #60 tabs 03/14/22 albuterol sulfate 90 mcg/actuation 2 puff inhalation Q6H PRN wheezing 08/22/22 aerosol inhaler (Proventil HFA) #8.5 grams duloxetine 30 mg capsule,delayed 30 mg PO BID #180 caps 10/04/22 release sprinkle omeprazole 20 mg capsule,delayed 20 mg PO DAILY #90 caps 10/29/22 release lisinopril 10 mg tablet 10 mg PO DAILY #90 tab-caps 01/01/23 benzonatate 100 mg capsule 100 mg PO TID PRN cough #60 caps 05/21/23 pregabalin 100 mg capsule 100 mg PO QHS #90 caps 07/28/23 atorvastatin 10 mg tablet 5 mg (1/2 x 10 mg) PO QHS #90 tabs 08/19/23 Current Visit Medications: Current Medications Generic Name Dose Route Start Last Admin Trade Name Freq PRN Reason Stop Dose Admin Ringer's Solution 1,000 mls @ 80 mls/hr 09/12/23 06:00 09/12/23 10:34 IV 09/12/23 23:59 80 mls/hr INFUSION ARSEN Administration IV Miscellaneous Supplies 1 each 09/12/23 06:00 Iv Access IV 09/12/23 23:59 DIRECTED [facility] Ondansetron HCl 4 mg 09/12/23 00:49 Ondansetron 4 Mg/2 Ml Vial IVP 10/12/23 00:48 Q4H PRN PRN Nausea / Vomiting Sodium Chloride 0 ml 09/12/23 06:00 Normal Saline Flush 10 Ml Syr IV 09/12/23 23:59 PRN PRN Sodium Chloride 0 ml 09/12/23 06:00 Normal Saline 10 Ml Vial IJ 09/12/23 23:59 DIRECTED PRN Sterile Water 0 ml 09/12/23 06:00 Water,Injection,Sterile 10 Ml Vial IJ 09/12/23 23:59 DIRECTED PRN PFSH Active Problems Active Problems: Problem Status Onset Code Trigger finger, right middle finger M65.331 Osteoarthritis of carpometacarpal joint of right thumb M18.11 Iliotibial band syndrome affecting left lower leg M76.32 Increase in creatinine R79.89 Hyperlipidemia E78.5 Depression F32.A Foot pain, bilateral M79.671, M79.672 Prediabetes R73.03 Idiopathic neuropathy G60.9 Sensorineural hearing loss of combined sites, bilateral H90.3 Obesity 07/23/12 E66.9 Essential hypertension 07/13/13 I10 Osteoarthrosis M19.90 GERD (gastroesophageal reflux disease) K21.9 Medical History Medical History Tick bite Chest tightness Pt. states it was indigestion Contusion of left patella Bronchospasm BCC (basal cell carcinoma), eyelid Mohs scheduled [facility] 03/2021 Colon polyp, hyperplastic (~06/2020) Tubulovillous adenoma (~06/2020) CSF otorrhea 07/12/22 Right Ear, Recurrent [facility] -hb Chronic otorrhea of right ear to Dr. Flynn- tube placed x2- Filiberto Franz at [facility]- repaired 09/2020 Dysfunction of right eustachian tube Unilateral primary osteoarthritis, left knee Injected: 01/03/2021; 07/10/20; 12/24/19; 12/28/2018 Chronic serous otitis media, right ear Right nasal polyps 05/2020- nasal mass to be removed [facility] Dr. Adam Umbilical hernia Primary osteoarthritis of right knee knee replaced Polymyalgia rheumatica (10/13/15) Left lumbar radiculopathy (03/07/16) Diverticulitis of colon COLONOSCOPY-06/17/14; DR. DELUNA Carpal tunnel syndrome on both sides (08/25/15) Calculus of gallbladder without cholecystitis without obstruction (09/22/15) Hyperlipidemia Perforated diverticulitis (05/06/14) Medical History Comments:: Dental: 2 missing teeth, top Metal: R Knee, R & L shoulders hard of hearing, left ear is better Surgical History Surgical History H/O tympanomastoidectomy History of tympanoplasty of right ear H/O colectomy Synovitis of left knee S/P arthroscopy with synovectomy: 03/14/2022 History of total left knee replacement (TKR) (06/12/21) History of colonoscopy (~06/2020) Right rotator cuff tear S/P repair: 01/18/2020 Status post total right knee replacement (05/19/19) May 2019 Status post trigger finger release Status post tonsillectomy and adenoidectomy History of cholecystectomy (10/08/15) History of exploratory laparotomy (07/26/14) History of umbilical hernia repair Status post knee surgery right knee arthroscopy H/O esophagogastroduodenoscopy (~05/25/18) S/P colonoscopy (~05/25/18) Complete tear of left rotator cuff (05/28/17) S/P Repair Had to have 2 surgeries after an anchor was pulled repair of wound dehisence Reports 4 surgeries in 2014 Required skin graft and now has mesh in place Sigmoidoscopy 07/26/14; DR. DELUNA Tobacco Smoking/Tobacco Use Status: Never Passive smoking exposure: Yes Second hand exposure: Yes Alcohol Alcohol Intake: current Alcohol intake frequency: holidays/special occasions only Substance Use Substance use: Never Substance use type: does not use Vital Signs and Lab Results Vital Signs Most Recent Vital Signs in EMR: Most Recent Vital Signs Temp Pulse Resp BP Pulse Ox 36.4 C L 80 20 139/97 H 95 09/12/23 10:18 09/12/23 10:18 09/12/23 10:18 09/12/23 10:18 09/12/23 10:18 Lab Results Blood Type / Crossmatch: No Data to Display Complete Blood Count: No Data to Display Complete Metabolic Panel: No Data to Display Liver Function Panel: No Data to Display Coagulation Panel: No Data to Display Cardiac Panel: No Data to Display Arterial Blood Gas: No Data to Display Venous Blood Gas: No Data to Display Pancreas Panel: No Data to Display Thyroid Panel: No Data to Display Infectious Disease: No Data to Display Blood Cultures: No Data to Display Toxicology Panel: No Data to Display Imaging and Studies Imaging and Studies Study information below may be from another EMR and interpreted by another provider. Please see original notes in EMR for more complete details. EKG Summary: Conclusion Sinus rhythm...normal P axis, V-rate 60- 99 Low voltage, extremity and precordial leads...extremity<0.5mV, precordial<1.0mV 01/19/22 Stress Test Summary: 12/04/21 Echocardiogram Summary: 1. Left ventricle: The cavity size was normal. Wall thickness was normal. Systolic function was normal. The estimated ejection fraction was 60-65%. Wall motion was normal; there were no regional wall motion abnormalities. Some parameters suggest diastolic dysfunction. 2. Mitral valve: There was mild regurgitation. 3. Right ventricle: The cavity size was mildly dilated. Wall thickness was normal. Systolic function was normal. 4. Right atrium: The atrium was dilated. 5. Pulmonary arteries: Systolic pressure could not be accurately determined, but appeared to be increased, at least 30 to 35 mmHg. Carotid Artery Summary:: IMPRESSION: Minimal calcific plaque. No evidence of significant internal carotid artery stenosis. Anesthesia Assessment and Plan Anesthesia History Personal History: No History of Anesthesia Complications and Unknown Anesthesia History Family History: No Family History of Anesthesia Complications Exercise Tolerance Exercise Tolerance: Metabolic Equivalents>4 Pertinent Negatives Pertinent Negatives: No Symptoms of GERD Cardiac & Pulmonary Exam Cardiac Exam: Normal S1/S2 Heart Sounds Pulmonary Exam: Clear Bilateral Breath Sounds Implantable Cardiac Device Does patient have a Pacemaker or an ICD?: No Airway Exam Known Difficult Airway: No Mallampati Class: 2 Mouth Opening: Normal (> 3cm) Thyromental Distance: Greater than 3 cm Neck Range of Motion: Full ROM Neck Circumference: Normal Teeth Condition: Normal Dentition (Some missing, none loose per pt. ) ASA Classification ASA Score: ASA 2 Emergency Case?: No NPO Status NPO Status: NPO Clears >2 hours, Solids >8 hours Anesthesia Plan Resuscitation Status: Full Code Anesthesia Technique: General Anesthesia Airway Planned: Natural Airway Monitors Used: Standard Monitors
[2023-09-12 11:40] VITALS: BMI 33.5
--- NOTE | 2023-09-12 11:57 | BOWEL_PTH ---
PATIENT: Javi Gaona LOC: [facility] U#:[id number] AGE/SX: 78/M ROOM: RE09/12/[address]: Rosibel Lyons : 1945 BED: DIS: 09/12/2023 SPEC #: [id number] RECD: 09/12/23 16:28 STATUS: MICHELLE RELogan #: [id number] MANNY: 09/12/23 11:[address]: Rosibel Lyons DEPT: Surgical Specimen RECD BY: Afua Sandoval ENTERED: 09/12/23 16:28 SP TYPE: Bowel OTHR DR: Lynn Mercado, ALTERATION HAND Tissues: 1 - BIOPSY BOWEL Procedures: GROSS AND MICRO LEVEL 4 Comments: [id number]
[2023-09-12 12:15] VITALS: BP 138/92; PULSE 70; RESP 16; TEMP 36.3; O2SAT 97
--- NOTE | 2023-09-12 12:43 | W.ANESPOSTOP ---
Postoperative Evaluation Date, Time and Location Date Performed: 09/12/23 Time Performed: 12:43 Patient Location: Day Surgery Unit Vital Signs Most Recent Imported Vital Signs: Most Recent Vital Signs Temp Pulse Resp BP Pulse Ox 36.3 C L 70 16 138/92 H 97 09/12/23 12:15 09/12/23 12:15 09/12/23 12:15 09/12/23 12:15 09/12/23 12:15 Pain Score Most Recent Pain Score: Most Recent Pain Score Pain Level 0 09/12/23 12:15 Assessment Mental Status: Awake (Alert & Oriented to Patient Baseline) Airway and Respiratory Function: Patent airway with normal (patient baseline) respiratory exam Cardiovascular Function: Hemodynamically Stable Hydration Status: Adequately Hydrated Nausea & Vomiting: No Nausea or Vomiting Pain: Pt. Denies Any Pain Peripheral Nerve Block: Patient did not receive a nerve block
[2023-09-12 12:50] VITALS: BP 152/97; PULSE 64; RESP 18; TEMP 36.3; O2SAT 98
== END 2023-09-12 13:20 | disposition home or self-care (01) ==
LOC: SUR 09:57
PROVIDERS: PCP Nurse Practitioner Family; Visit Provider Surgery
PROC: 0DJD8ZZ Inspection of Lower Intestinal Tract, Via Natural or Artificial Opening Endoscopic (ICD-10-PCS; CPT 45378; principal; 2023-09-12 10:45)
DX: Z12.11 Encounter for screening for malignant neoplasm of colon (principal); I10 Essential (primary) hypertension; D12.0 Benign neoplasm of cecum; K64.1 Second degree hemorrhoids; K57.30 Diverticulosis of large intestine without perforation or abscess without bleeding
CPT/HCPCS: 45385; 88305; J2001; J2704

== ENCOUNTER 2023-11-06 04:23 | Outpatient (CLI) | payer MEDICARE, SELFPAY ==
[2023-11-06 13:13] LABS: Hemoglobin A1C 6.1 % (<5.7)
[2023-11-06 13:23] LABS: Anion Gap 7.3 mmol/L (3-11); BUN 13 mg/dL (7-18); CO2 28.7 mmol/L (21.0-32.0); CREATININE 1.4 mg/dL (0.70-1.30); Calcium 9.7 mg/dL (8.5-10.1); Calculated LDL 46 mg/dL (<100); Chloride 103 mmol/L (98-107); Cholesterol 144 mg/dL (<200); Estimated GFR 52.09 (mL/min/1.73m2); Glucose 98 mg/dL (74-106); HDL Cholesterol 39 mg/dL (40-60); Potassium 4.6 mmol/L (3.5-5.1); Sodium 139 mmol/L (136-145); Triglyceride 299 mg/dL (<150)
== END 2023-11-06 04:24 | disposition home or self-care (01) ==
PROVIDERS: PCP Nurse Practitioner Family; Visit Provider Nurse Practitioner Family
DX: Z00.00 Encounter for general adult medical examination without abnormal findings (principal); F32.A Depression, unspecified; I10 Essential (primary) hypertension; E78.5 Hyperlipidemia, unspecified; R73.03 Prediabetes; K21.9 Gastro-esophageal reflux disease without esophagitis; G60.9 Hereditary and idiopathic neuropathy, unspecified
CPT/HCPCS: 36415; 80048; 80061; 83036

== ENCOUNTER → 2024-01-29 09:52 | Outpatient (BNVA) | payer MEDICARE, SELFPAY | PROVIDERS: PCP Nurse Practitioner Family; Referring Provider Nurse Practitioner Family | DX: M70.61 Trochanteric bursitis, right hip (principal) | CPT/HCPCS: 20610; J1010 ==

== ENCOUNTER 2024-04-29 03:19 | Outpatient (CLI) | payer MEDICARE, SELFPAY ==
[2024-04-30 09:00] LABS: Lyme Ab w Rflx to Lyme Confirm Negative (Negative)
[2024-05-01 23:27] LABS: Anaplasma phagocytophilum Negative (Negative); B. miyamotoi PCR Negative (Negative); Babesia divergens/MO-1 Negative (Negative); Babesia duncani Negative (Negative); Babesia microti Negative (Negative); Ehrlichia chaffeensis Negative (Negative); Ehrlichia ewingii/canis Negative (Negative); Ehrlichia muris eauclairensis Negative (Negative)
== END 2024-04-29 03:20 | disposition home or self-care (01) ==
LOC: LBO 03:19
PROVIDERS: PCP Nurse Practitioner Family; Visit Provider Nurse Practitioner Family
DX: M54.16 Radiculopathy, lumbar region (principal); M79.671 Pain in right foot; M79.672 Pain in left foot; R26.81 Unsteadiness on feet; I10 Essential (primary) hypertension
CPT/HCPCS: 36415; 87798; 83735; 86618

== ENCOUNTER 2024-07-26 10:31 | Outpatient (CLI) | payer MEDICARE, SELFPAY ==
--- NOTE | 2024-07-26 10:00 | DI.RAD_ITS ---
Exam(s) XR KNEE RT 3V AP,LAT,ABELINO EXAM: XR KNEE RT 3V AP,LAT,ABELINO CLINICAL HISTORY: R knee pain. TECHNIQUE: 2D digital imaging was performed. Three images were obtained. Merchant's, AP and lateral views were obtained. COMPARISON: CR XR KNEE RT 2V AP,LAT from 06/05/2020 CR XR STANDING ALIGNMENT from 07/23/2021 CR,XR XR CHEST 2V PA LATERAL from 03/15/2023 FINDINGS: BONES: There are stable post operative changes of a right total knee arthroplasty present. No fractu re or dislocation. JOINTS: The orthopedic hardware is in good position. No evidence of hardware loosening. SOFT TISSUE: Normal. IMPRESSION: Stable right total knee arthroplasty. DATA REPOSITORY: RADIATION DOSE DELIVERED:
== END 2024-07-26 10:32 | disposition home or self-care (01) ==
LOC: DIORS 10:32
PROVIDERS: PCP Nurse Practitioner Family; Referring Provider Nurse Practitioner Family; Visit Provider Physician Assistant
DX: S86.911A Strain of unspecified muscle(s) and tendon(s) at lower leg level, right leg, initial encounter (principal); Z96.651 Presence of right artificial knee joint; X58.XXXA Exposure to other specified factors, initial encounter
CPT/HCPCS: 73562; 99213

== ENCOUNTER 2024-12-16 04:03 | Outpatient (CLI) | payer MEDICARE, SELFPAY ==
[2024-12-16 08:21] LABS: Abs Immature Grans 0.02 10^3/uL (0.0-0.06); HCT 47.4 % (40.0-50.0); HGB 15.7 g/dL (13.5-17.5); Immature Grans % 0.3 %; MCH 31.0 pg (27.0-33.0); MCHC 33.1 % (32.0-36.0); MCV 94 fL (80-95); MPV 9.4 fL (8.0-11.0); Platelet Count 168 10^3/uL (130-400); RBC 5.07 10^6/uL (4.36-5.78); RDW 12.1 % (11.8-14.1); RDW-SD 41.5 fL; WBC 6.67 10^3/uL (4.4-10.8)
[2024-12-16 08:23] LABS: ESR 2 mm/hr (0-20)
[2024-12-16 08:59] LABS: Hemoglobin A1C 6.4 % (<5.7)
[2024-12-16 09:17] LABS: ALT 48 U/L (16-63); AST 53 U/L (15-37); Albumin 4.4 g/dL (3.4-5.0); Alkaline Phosphatase 83 U/L (46-116); Anion Gap 9.2 mmol/L (3-11); BUN 19 mg/dL (7-18); Bilirubin, Total 1.0 mg/dL (0.2-1.0); CO2 28.8 mmol/L (21.0-32.0); Calcium 9.9 mg/dL (8.5-10.1); Calculated LDL 61 mg/dL (<100); Chloride 101 mmol/L (98-107); Cholesterol 148 mg/dL (<200); Estimated GFR 47.65 (mL/min/1.73m2); Glucose 140 mg/dL (74-106); HDL Cholesterol 37 mg/dL (>or=40); Potassium 4.7 mmol/L (3.5-5.1); Sodium 139 mmol/L (136-145); TSH 1.47 uIU/mL (0.36-3.74); Total Protein 7.7 g/dL (6.4-8.2); Triglyceride 253 mg/dL (<150)
[2024-12-16 09:34] LABS: C-Reactive Protein < 0.50 mg/dL (<or=0.5)
[2024-12-16 10:04] LABS: Vitamin B12 820 pg/mL (193-986); Vitamin D 25 Total 42 ng/mL (30-100)
[2024-12-16 10:27] LABS: Folate > 20.0 ng/mL (8.6-20.0)
[2024-12-16 17:44] LABS: PSA, Screening 0.9 ng/mL (<=6.5)
[2024-12-17 13:37] LABS: Albumin 63.2 % (55.8-66.1); Albumin g/dL 4.8 g/dL (3.6-5.2); Alpha 1 g/dL 0.30 g/dL (0.15-0.40); Alpha 2 g/dL 0.90 g/dL (0.50-1.00); Beta g/dL 0.80 g/dL (0.60-1.20); Gamma g/dL 0.80 g/dL (0.60-1.60); Total Protein 7.6 g/dL (6.3-8.2)
[2024-12-17 14:29] LABS: Albumin, Urine % 54.2 %; Albumin, Urine mg/dL 9 mg/dL; Globulins, Urine % 45.8 %; Globulins, Urine mg/dL 7 mg/dL
== END 2024-12-16 04:04 | disposition home or self-care (01) ==
LOC: LBO 04:03
PROVIDERS: Family Medicine; PCP Nurse Practitioner Family; Visit Provider Nurse Practitioner Family
DX: R73.03 Prediabetes (principal); I10 Essential (primary) hypertension; E78.5 Hyperlipidemia, unspecified; K21.9 Gastro-esophageal reflux disease without esophagitis; Z12.5 Encounter for screening for malignant neoplasm of prostate; G62.89 Other specified polyneuropathies; F06.31 Mood disorder due to known physiological condition with depressive features; M85.80 Other specified disorders of bone density and structure, unspecified site
CPT/HCPCS: 36415; 80053; 80061; 82306; 84153; 84156; 84166; 85652; 86335; 82607; 82746; 83036; 84165; 84439; 84443; 85025; 86038; 86140

== ENCOUNTER → 2025-01-27 02:28 | Outpatient (CLI) | payer MEDICARE, SELFPAY ==
--- NOTE | 2025-01-27 07:00 | DI.MRI_ITS ---
Exam(s) MR LUMBAR SPINE WO EXAM: MR LUMBAR SPINE WO CLINICAL HISTORY: worsening back pain,lumbar radiculopathy,m54.16. TECHNIQUE: Multiplanar multisequence MRI of the Lumbar spine was performed. COMPARISON: MR MRI - LUMBAR SPINE WO CONTRAST from 03/11/[address] CHEST PE ABD PELVIS W from 01/19/2022 FINDINGS: Conus medullaris is at normal level. There is no evidence of conus mass nor subjacent clumping of intrathecal nerve roots to suggest arachnoiditis. The distal thecal sac appears unremarkable.There is no evidence of Tarlov intrasacral cysts nor other significant findings within the sacral canal Bones:There are no fractures nor ominous osseous lesions in the lumbar vertebral bodies and visualized sacrum. With respect to the individual levels... T12-L1: Unremarkable L1-2: Normal disc height and signal. No disc herniation nor central canal stenosis.No foraminal stenosis L2-3: Normal disc height. Mild symmetrical annular bulging which extends into the floor of the exiting neural foramina bilaterally. There is no dominant disc herniation. There is mild central canal stenosis related to she broad annular bulging of the annulus and short AP dimensions the pedicles and bilateral ligamentum flavum hypertrophy.Mild foraminal stenosis on the right side. No foraminal stenosis on the left side.Minimal degenerative changes in the facet joints. L3-4: Moderate decreased disc height. There is broad relatively symmetrical annular bulging without a dominant disc herniation. There is moderate central spinal canal stenosis at this level due to short AP dimensions of the pedicles, the annular bulging, bilateral ligamentum flavum hypertrophy and moderate degenerative changes in the facet joints. There is mild foraminal stenosis on both sides. L4-5: This level exhibits minimal disc space narrowing but there is now degenerative anterolisthesis of L4 upon L5 with approximately 3 millimeter anterior slippage of L4 upon L5. There is pseudo herniation of the annulus and there is a super imposed posterolateral left disc protrusion which extends into the exiting left neural foramen. There is severe central spinal canal stenosis at this level due to the listhesis broad annular bulging and ligamentum flavum flavum hypertrophy and severe degenerative changes in both facet joints. This is compounded by the asymmetric bulging in the floor of the exiting left neural foramen which results in significant impingement of the exiting left-sided nerve root at this level within the exiting neural foramen. This, however, is unchanged from the scan of February 2016. There is less impingement upon the exiting right nerve root at this level. L5-S1: Preserved disc height and signal. No disc herniation or central canal stenosis at this level. Mild degenerative changes in the left facet joint. Moderate degenerative changes in the right facet joint. No significant foraminal stenosis at this level. Soft tissues: paraspinal soft tissues appear unremarkable. IMPRESSION: 1. Multilevel findings as described above. The most significant central spinal canal stenosis is at the L4-5 level which is presently severe and further progressed from 2016 mostly related to the new development of degenerative mild anterolisthesis of L4 upon L5 which was not present on the 2016 study. There is significant left-sided foraminal stenosis at this level again noted, similar to 2016. This is mostly related to asymmetric left-sided annular bulging at this level superimposed upon the pseudo herniation of the annulus related to the degenerative listhesis at this level. 2. Other level findings as above DATA REPOSITORY:
== END ==
LOC: DI 02:29
PROVIDERS: PCP Nurse Practitioner Family; Visit Provider Nurse Practitioner Family
DX: M54.16 Radiculopathy, lumbar region (principal)
CPT/HCPCS: 72148